=== PATIENT | male | born 1970 ===

== ENCOUNTER → 2020-01-16 12:48 | Outpatient (BNVA) | payer OTHER, SELFPAY | PROVIDERS: PCP Physician Assistant; Referring Provider Physician Assistant; Visit Provider Internal Medicine Cardiovascular Disease | DX: R07.2 Precordial pain (principal); I10 Essential (primary) hypertension; G47.30 Sleep apnea, unspecified | CPT/HCPCS: 93005; 99202 ==

== ENCOUNTER → 2020-01-22 08:51 | Outpatient (REF) | payer OTHER, SELFPAY ==
--- NOTE | 2020-01-22 08:54 | CA_ITS ---
Acquisition Time: 2020-01-22 09:16:22 Total Exercise Time: 00:09:26 Test Indications: Chest Pain Medications: Protocol: LUZMA Max HR: 162 BPM 93% of Pred: 173 BPM Max BP: 190/058 mmHG Max Work Load: 10.8 METS Exercise stress test using Luzma protocol, total of 9 min 26 sec. METS10.8, with MHR up to 162, and MAPHR up to 93%. Tolerated well, denies any anginal sx. EKG with isolated PVC and no ischemic changes noted during exercise or in recovery period. Mildly hypertensive response to exercise that normalizes in recovery. Test reviewed with Dr. Spence. Referred By: Orion Rutherford Overread By: Elvin Epstein
== END ==
LOC: HO.CARD 08:51
PROVIDERS: Visit Provider Internal Medicine Cardiovascular Disease
DX: R07.2 Precordial pain (principal)
CPT/HCPCS: 93017

== ENCOUNTER → 2020-03-11 20:20 | Outpatient (REF) | payer OTHER, SELFPAY | LOC: HO.SL 20:20 | PROVIDERS: PCP Physician Assistant; Visit Provider Internal Medicine Cardiovascular Disease | DX: G47.33 Obstructive sleep apnea (adult) (pediatric) (principal) | CPT/HCPCS: 95810 ==

== ENCOUNTER 2020-03-14 04:08 | Emergency (ER) | payer OTHER, SELFPAY ==
[2020-03-14 04:13] VITALS: BP 149/76; PULSE 77; RESP 16; TEMP 36.9; O2SAT 99; BMI 31.8
--- NOTE | 2020-03-14 04:28 | PC.NURSE ---
Covid and Strep swabs obtained and sent.
--- NOTE | 2020-03-14 04:36 | XR_ITS ---
EXAMINATION: XR CHEST CLINICAL INFORMATION: Cough COMPARISON: 04/18/2018 TECHNIQUE: Frontal view of the chest was obtained. FINDINGS: The lungs are clear with no focal consolidation. No evidence of pneumothorax or pulmonary edema. Possible trace right pleural effusion, versus pleural thickening. The cardiomediastinal silhouette is unremarkable. No acute osseous findings. XR/XR chest 1V IMPRESSION: Possible trace right pleural effusion, versus pleural thickening.
--- NOTE | 2020-03-14 04:46 | PC.NURSE ---
MD at bedside for primary eval. XRay at bedside.
[2020-03-14 04:50] LABS: COVID-19 Test Negative (Negative)
--- NOTE | 2020-03-14 05:09 | ED.URI ---
HPI - URI/Sore Throat General Chief Complaint: Upper Respiratory Symptoms Stated Complaint: FLU LIKE SYMPTOMS Time Seen by Provider: 03/14/20 05:09 Source: patient and juice tester Mode of arrival: ambulatory History of Present Illness HPI Narrative: This is a 49-year-old male with DUNCAN who presents after having undergone a sleep study on and then states that he developed dry, nonproductive, cough with runny nose but denies sore throat, ear pain, headache, body aches, GI symptoms. He otherwise denies any recent travel or history of asthma or tobacco smoking. In addition, he denies any fevers or chills. Related Data Previous Rx's Medication Instructions Recorded cyclobenzaprine 10 mg tablet 10 mg PO TID PRN 30 Days #90 tab 11/17/19 dicyclomine 20 mg tablet 20 mg PO BID 20 Days #40 tab 12/23/19 lisinopril 20 1 tab PO DAILY 30 Days #30 tab 12/23/19 mg-hydrochlorothiazide 12.5 mg tablet amlodipine 5 mg tablet 5 mg PO DAILY #30 tab 01/16/20 hydroxyzine HCl 25 mg tablet 25 mg PO BEDTIME #90 tab 01/16/20 ibuprofen 800 mg tablet 800 mg PO Q8H #90 tab 03/09/20 clonazepam 1 mg tablet 1 mg PO DAILY 30 Days #30 tab 03/11/20 Allergies Allergy/AdvReac Type Severity Reaction Status Date / Time No Known Allergies Allergy Verified 03/14/20 04:17 [No Known Allergies*] Review of Systems Review of Systems: Pertinent positives and negatives as stated in HPI and 10 point review of systems is otherwise negative. [facility] Past Medical History Source: nursing notes reviewed Medical History HTN (hypertension) Sleep apnea Surgical History History of colonoscopy Family History Family History Father Diabetes Mother Diabetes Family/Other Hypertension Social History Social History Alcohol intake: current Smoking Status: Never smoker Advance Directives: No Advance Directives Information Provided: No Physical Exam Vital Signs: Vital Signs: Last Vital Signs Temp 98.4 F 03/14/20 04:13 Pulse 77 03/14/20 04:13 Resp 16 03/14/20 04:13 BP 149/76 H 03/14/20 04:13 Pulse Ox 99 03/14/20 04:13 Body Mass Index 31.8 VITAL SIGNS: Reviewed. GENERAL: Well developed, well nourished, in no acute distress. HEAD: Normocephalic/atraumatic, EYES: PERRLA, EOMI EARS: Ext canals without abnormality, TMs non-bulging and non-erythematous NOSE: Nares patent bilateral OROPHARYNX: no oral lesions noted, posterior pharynx clear NECK: Supple, no adenopathy LUNGS: Normal breath sounds. No adventitious sounds or accessory muscle use. SpO2<99> CARDIOVASCULAR: Regular rate and rhythm without noted murmurs, no JVD or lower extremity edema. ABDOMEN: Obese, Soft, non-tender, non-distended with bowel sounds. NEUROLOGIC: Alert and oriented x 4. Course Course Course Narrative: This is a 49-year-old male with history and clinical presentation most consistent with allergies given the rhinitis and dry cough especially with a negative COVID-19 test and no further viral-like symptoms. Chest x-ray was not consistent with patchy opacities or an infiltrate. MDM - URI/Sore Throat Lab Data Labs: Lab Results 03/14/20 Range/Units 04:25 COVID-19 ([facility]) Negative (Negative) COVID-19 Clin Com See Note Discharge Plan Discharge Clinical Impression: Cough Rhinitis Qualifiers: Rhinitis type: other Qualified Code(s): J31.0 - Chronic rhinitis Patient Disposition: Home, Self-Care Instructions: Cold Symptoms (ED), Acute Cough (ED) Additional Instructions: Recomendamos el uso de Robitussin, Cepacol u otro supresor de la tos dedicado de venta isaiah para el control de los s?ntomas. Debe darse cuenta de que la tos seca puede durar entre 3 y 4 semanas. Recomiende probar Claritin diariamente felecia se indica en el empaque externo, en combinaci?n con Flonase (esto tambi?n est? disponible sin receta) para un alivio adicional de los s?ntomas. Guillermo un seguimiento con zamora proveedor de atenci?n primaria llamando a la oficina el para programar frank leann. No dude en volver al servicio de urgencias por cualquier empeoramiento kevin de bakari s?ntomas. Prescriptions: No Action cyclobenzaprine 10 mg tablet 10 mg PO TID PRN (Reason: muscle spasm) 30 Days Qty: 90 RF: 2 hydroxyzine HCl 25 mg tablet 25 mg PO BEDTIME Qty: 90 RF: 1 ibuprofen 800 mg tablet 800 mg PO Q8H Qty: 90 RF: 3 clonazepam 1 mg tablet 1 mg PO DAILY 30 Days Qty: 30 RF: 1 lisinopril-hydrochlorothiazide 20-12.5 mg tablet 1 tab PO DAILY 30 Days Qty: 30 RF: 2 dicyclomine 20 mg tablet 20 mg PO BID 20 Days Qty: 40 RF: 1 amlodipine 5 mg tablet 5 mg PO DAILY Qty: 30 RF: 3 Referrals: Rafael Ghotra PA-C [Primary Care Provider] - 2 days (Re-evaluation for dry cough, COVID-19 negative.) Print Language: Botswanan
[2020-03-14] MEDS: Benzonatate 100 MG CAPSULE PO (05:23)
== END 2020-03-14 05:27 | disposition home or self-care (01) ==
PROVIDERS: Emergency Provider Student in an Organized Health Care Education/Training Program; PCP Physician Assistant
DX: R05 Cough (principal); J31.0 Chronic rhinitis; Z20.822 Contact with and (suspected) exposure to COVID-19; I10 Essential (primary) hypertension; Z79.899 Other long term (current) drug therapy
CPT/HCPCS: 36415; 71045; 87071; 87635; 87880; 99283

== ENCOUNTER → 2020-04-20 13:50 | Outpatient (BNVA) | payer OTHER, SELFPAY | PROVIDERS: PCP Physician Assistant; Visit Provider Internal Medicine Cardiovascular Disease | DX: I10 Essential (primary) hypertension (principal); R07.2 Precordial pain | CPT/HCPCS: 99212 ==

== ENCOUNTER → 2020-11-04 10:24 | Outpatient (BNVA) | payer MEDICAID, SELFPAY | PROVIDERS: PCP Physician Assistant; Referring Provider Physician Assistant; Visit Provider Internal Medicine Cardiovascular Disease | DX: I10 Essential (primary) hypertension (principal) | CPT/HCPCS: 93005; 99212 ==

== ENCOUNTER 2020-11-17 07:44 | Outpatient (REF) | payer OTHER, SELFPAY ==
[2020-11-17 08:35] LABS: Hematocrit 43.6 % (42-52); Hemoglobin 14.3 g/dl (14.0-18.0); Mean Corpuscular HGB Conc 32.8 g/dl (31.0-36.0); Mean Corpuscular Hemoglobin 28.1 pg (27.0-33.0); Mean Corpuscular Volume 85.7 fL (80-98); Mean Platelet Volume 8.7 fL (9.4-12.4); Platelet Count 286 X10*3/uL (160-400); Red Blood Count 5.09 X10*6/uL (4.60-5.80); Red Cell Distribution Width 13.2 % (11.0-16.0); White Blood Count 8.9 X10*3/uL (4.8-10.8)
[2020-11-17 08:58] LABS: Alanine Aminotransferase 28 U/L (0-40); Albumin Level 4.4 g/dL (3.5-5.0); Alkaline Phosphatase 61 U/L (39-117); Anion Gap 12 (12-20); Aspartate Amino Transferase 18 U/L (5-37); Bilirubin Total 0.4 mg/dL (0.0-1.0); Blood Urea Nitrogen 10 mg/dL (9-16); Calcium 8.9 mg/dL (8.4-10.2); Carbon Dioxide 26 mmol/L (22-29); Chloride 103 mmol/L (96-108); Cholesterol 172 mg/dL; Estimated Glomerular Filt Rate > 60; Glucose Fasting 128 mg/dL (60-99); HDL Cholesterol 43 mg/dL; LDL Cholesterol Calculated 103 mg/dl; Potassium 4.3 mmol/L (3.3-5.1); Sodium 137 mmol/L (135-145); Total Protein 7.7 g/dL (6.5-8.0); Triglycerides 131 mg/dL
[2020-11-17 09:04] LABS: Estimated Average Glucose 128 mg/dL; Hemoglobin A1c % 6.1 %
[2020-11-17 09:36] LABS: Creatinine Urine 135.37 mg/dL; Microalbum/Creatinine Ratio Ur 7.3 ug/mg cr
== END 2020-11-17 07:45 | disposition home or self-care (01) ==
LOC: HO.LAB 07:44
PROVIDERS: PCP Physician Assistant; Visit Provider Physician Assistant
DX: I10 Essential (primary) hypertension (principal); E66.09 Other obesity due to excess calories; Z68.32 Body mass index [BMI] 32.0-32.9, adult
CPT/HCPCS: 36415; 80053; 80061; 82043; 83036; 84443; 85027

== ENCOUNTER → 2020-12-14 13:48 | Outpatient (BNVA) | payer OTHER, SELFPAY | PROVIDERS: PCP Physician Assistant; Visit Provider Internal Medicine Cardiovascular Disease | DX: R94.31 Abnormal electrocardiogram [ECG] [EKG] (principal); I10 Essential (primary) hypertension | CPT/HCPCS: 93005; 99212 ==

== ENCOUNTER → 2021-05-06 13:43 | Outpatient (BNVA) | payer OTHER, SELFPAY | PROVIDERS: PCP Physician Assistant; Referring Provider Physician Assistant; Visit Provider Internal Medicine Cardiovascular Disease | DX: I10 Essential (primary) hypertension (principal); R94.31 Abnormal electrocardiogram [ECG] [EKG]; Z79.899 Other long term (current) drug therapy | CPT/HCPCS: 99212 ==

== ENCOUNTER → 2021-06-11 07:21 | Outpatient (REF) | payer OTHER, SELFPAY ==
--- NOTE | 2021-06-11 07:25 | CA_ITS ---
Transthoracic Echocardiogram Patient (Last, First, Middle): Leandro Pozo, Gender: Male Date of : 1970 Age: 51 Procedure Date: 06/11/2021 Procedure Type: Transthoracic Echocardiogram Location: OP Height: 177.8 cm Weight: 107.5 kg BSA: 2.24 m2 Heart Rate: bpm BP: 132 / 72 mmHg Color Mixer: SB Referring MD: Orion Rutherford MD Symptoms: I10 - Essential (primary) hypertension Study Quality: Adequate ECG Rhythm: Sinus Conclusions: - Normal left ventricular size, thickness, systolic function, and wall motion. The visually estimated ejection fraction is between 60-65%. - Normal right ventricular cavity size and systolic function. Findings Left Ventricle Normal left ventricular size, thickness, systolic function, and wall motion. The visually estimated ejection fraction is between 60-65%. Diastolic function is normal for age. Normal global longitudinal strain. Right Ventricle Normal right ventricular cavity size and systolic function. Atria The left atrium is normal in size. Aortic Valve Normal aortic valve structure and function. There is no aortic valve stenosis. There is trace (trivial) aortic valve regurgitation. Mitral Valve Normal mitral valve structure and function. There is no mitral valve regurgitation. There is no mitral valve stenosis. Pulmonic Valve The pulmonic valve is likely normal. Tricuspid Valve Normal tricuspid valve structure and function. There is no tricuspid valve regurgitation. Tricuspid regurgitation envelope is inadequate for calculation of right ventricular systolic pressure. Indeterminate right atrial pressure. Great Vessels All visible segments of the aorta are normal in size. The visualized portions of the pulmonary artery and branches are normal. Venous The inferior vena cava was not well visualized. Pericardium/Pleural There is no evidence of pericardial effusion. Prior Study Comparison No prior study available for comparison. Measurements 2D Linear Measurements IVSd: 0.76 0.6-0.9/0.6-1.0 cm LVIDd: 5.64 3.9-5.3/4.2-5.9 cm LVIDd Index: 2.52 2.4-3.2/2.2-3.1 cm/m2 LVIDs: 3.60 2.0-3.6 cm LVPWd: 0.75 0.7-1.1 cm LA Diam: 3.90 2.7-3.8/3.0-4.0 cm LAIDs Index: 1.74 1.5-2.3 cm/m2 LV Mass: 193.72 67-162/88-224 g LV Mass Index: 86.48 43-95/49-115 g/m2 LVOT Diam: 2.10 3.0+(-)1.3 cm 2D Systolic Function EF 4C: 55.70 >55% EF 2C: 66.60 >55% EF BiP: 61.00 >55% Mitral Valve MV Pk E: 0.94 MV PK A: 0.48 MV Decel Time: 224.00 E/A: 1.90 E'Lateral: 6.85 E'Medial: 9.46 E/E' Med: 9.90 E/E' Lat: 13.70 PHT: 66.00 MVA PHT: 3.33 Decel Nobles: 4.18 Aortic Valve AoV Pk Ap: 1.64 AoV Mn Ap: 1.06 AoV VTI: 0.30 AoV Pk Grad: 11.00 Aov Mn Grad: 5.00 ALEA Cont.VTI: 3.03 LVOT LVOT Pk Ap: 1.53 LVOT Mn Ap: 0.96 LVOT VTI: 0.27 LVOT Pk Grad: 9.00 LVOT Mn Grad: 5.00 LVOT Diam: 2.10 LVOT Area: 3.46 Diastolic Function MV Pk E: 0.94 MV Pk A: 0.48 E/A: 1.90 E'Medial: 9.46 E/E' Med: 9.90 E' Laterial: 6.85 E/E' Lat: 13.70 Right Ventricle TAPSE (mm): 17.00 TVS' Ap: 11.90 Great Vessels Aorta Sinus of Valsalva: 3.26 2.0-3.[address] Ridge: 2.67 1.7-3.4 cm Ao Asc: 3.20 2.1-3.4 cm Pulmonary Veins Pulm Vein S/D 1.20 Pulmonary Valve PV Pk Ap: 1.12 Peak PV Grad: 5.00 Updated in Other Vendor System with Status of Final Orion Rutherford MD electronically signed on 06/14/2021 3:33:43 PM with status of Final
== END ==
LOC: HO.CARD 07:21
PROVIDERS: PCP Physician Assistant; Visit Provider Physician Assistant
DX: I10 Essential (primary) hypertension (principal)
CPT/HCPCS: 93306; 93356

== ENCOUNTER 2021-08-26 07:15 | Outpatient (REF) | payer OTHER, SELFPAY ==
[2021-08-26 08:23] LABS: Hematocrit 41.4 % (42.0-52.0); Hemoglobin 13.6 g/dl (14.0-18.0); Mean Corpuscular HGB Conc 32.9 g/dl (31.0-36.0); Mean Corpuscular Hemoglobin 27.9 pg (27.0-33.0); Platelet Count 321 X10*3/uL (160-400); Red Blood Count 4.87 X10*6/uL (4.60-5.80); Red Cell Distribution Width 12.9 % (11.0-16.0)
[2021-08-26 08:30] LABS: Estimated Average Glucose 146 mg/dL; Hemoglobin A1c % 6.7 %
[2021-08-26 08:55] LABS: Alanine Aminotransferase 24 U/L (0-40); Albumin Level 4.5 g/dL (3.5-5.0); Alkaline Phosphatase 81 U/L (39-117); Anion Gap 13 (12-20); Aspartate Amino Transferase 19 U/L (5-37); Bilirubin Total 0.5 mg/dL (0.0-1.0); Blood Urea Nitrogen 14 mg/dL (9-16); Calcium 8.8 mg/dL (8.4-10.2); Carbon Dioxide 26 mmol/L (22-29); Chloride 100 mmol/L (96-108); Cholesterol 178 mg/dL; Estimated Glomerular Filt Rate > 60; Glucose Fasting 124 mg/dL (60-99); HDL Cholesterol 44 mg/dL; LDL Cholesterol Calculated 102 mg/dl; Sodium 135 mmol/L (135-145); Total Protein 7.9 g/dL (6.5-8.0); Triglycerides 160 mg/dL
[2021-08-26 09:04] LABS: Prostate Specific Antigen Scr 0.47 ng/mL (<0.05-4.0)
[2021-08-26 09:57] LABS: Creatinine Urine 191.03 mg/dL; Microalbum/Creatinine Ratio Ur 3.1 ug/mg cr
== END 2021-08-26 07:16 | disposition home or self-care (01) ==
LOC: HO.LAB 07:15
PROVIDERS: PCP Physician Assistant; Visit Provider Physician Assistant
DX: Z12.5 Encounter for screening for malignant neoplasm of prostate (principal); E66.09 Other obesity due to excess calories; Z68.32 Body mass index [BMI] 32.0-32.9, adult; I10 Essential (primary) hypertension
CPT/HCPCS: 36415; 80053; 80061; 82043; 83036; 84153; 84443; 85027

== ENCOUNTER → 2021-09-08 13:50 | Outpatient (BNVA) | payer OTHER, SELFPAY | PROVIDERS: PCP Physician Assistant; Referring Provider Physician Assistant; Visit Provider Internal Medicine Cardiovascular Disease | DX: I10 Essential (primary) hypertension (principal); E78.5 Hyperlipidemia, unspecified; Z79.82 Long term (current) use of aspirin | CPT/HCPCS: 93005; 99212 ==

== ENCOUNTER 2021-09-27 15:23 | Outpatient (REF) | payer OTHER, SELFPAY ==
--- NOTE | ~2021-09-27 | XR_ITS ---
EXAMINATION: XR FOOT, LEFT CLINICAL INFORMATION: Pain COMPARISON: None TECHNIQUE: AP, lateral, and oblique views of the left foot. FINDINGS: Bone alignment is normal. No fracture or dislocation is seen. Joint spaces are normal. There are calcaneal spurs. Soft tissues are otherwise normal. XR/XR foot LT min 3V IMPRESSION: Calcaneal spurs.
== END 2021-09-27 15:24 | disposition home or self-care (01) ==
LOC: HO.XRAY 15:23
PROVIDERS: PCP Physician Assistant; Visit Provider Physician Assistant
DX: M79.672 Pain in left foot (principal)
CPT/HCPCS: 73630

== ENCOUNTER → 2022-02-28 15:25 | Outpatient (BNVA) | payer OTHER, SELFPAY | PROVIDERS: PCP Physician Assistant; Referring Provider Physician Assistant; Visit Provider Internal Medicine Cardiovascular Disease | DX: E78.2 Mixed hyperlipidemia (principal); I10 Essential (primary) hypertension | CPT/HCPCS: 99212 ==

== ENCOUNTER 2022-06-06 07:30 | Outpatient (REF) | payer OTHER, SELFPAY ==
[2022-06-06 08:03] LABS: Hematocrit 44.2 % (42.0-52.0); Hemoglobin 14.2 g/dl (14.0-18.0); Mean Corpuscular HGB Conc 32.1 g/dl (31.0-36.0); Mean Corpuscular Hemoglobin 28.5 pg (27.0-33.0); Mean Corpuscular Volume 88.8 fL (80.0-98.0); Platelet Count 281 X10*3/uL (160-400); Red Blood Count 4.98 X10*6/uL (4.60-5.80); Red Cell Distribution Width 12.7 % (11.0-16.0); White Blood Count 11.5 X10*3/uL (4.8-10.8)
[2022-06-06 08:43] LABS: Alanine Aminotransferase 25 U/L (0-40); Albumin Level 4.2 g/dL (3.5-5.0); Alkaline Phosphatase 71 U/L (39-117); Anion Gap 11 (12-20); Aspartate Amino Transferase 21 U/L (5-37); Bilirubin Total 0.3 mg/dL (0.0-1.0); Blood Urea Nitrogen 12 mg/dL (9-16); Carbon Dioxide 27 mmol/L (22-29); Chloride 106 mmol/L (96-108); Cholesterol 124 mg/dL; Estimated Glomerular Filt Rate > 60; Glucose Fasting 137 mg/dL (60-99); HDL Cholesterol 42 mg/dL; LDL Cholesterol Calculated 49 mg/dl; Potassium 4.1 mmol/L (3.3-5.1); Sodium 140 mmol/L (135-145); Total Protein 7.3 g/dL (6.5-8.0); Triglycerides 169 mg/dL
[2022-06-06 08:50] LABS: TSH reflex Free T4 0.85 uIU/mL (0.32-4.0)
== END 2022-06-06 07:31 | disposition home or self-care (01) ==
LOC: HO.LAB 07:30
PROVIDERS: PCP Physician Assistant; Visit Provider Physician Assistant
DX: E11.65 Type 2 diabetes mellitus with hyperglycemia (principal); E78.5 Hyperlipidemia, unspecified
CPT/HCPCS: 36415; 80053; 80061; 82043; 84443; 85027

== ENCOUNTER 2022-12-07 08:00 | Outpatient (AMB) | payer OTHER, SELFPAY ==
[2022-12-07 08:04] VITALS: BP 124/78; PULSE 64; O2SAT 98; BMI 32.1
--- NOTE | 2022-12-07 08:04 | MHC.PC.OV ---
Vital Signs 12/07/22 08:04 Height 5 ft 11 in Weight 230 lb BMI 32.1 BP 124/78 Blood Pressure Location Lt brachial Position Sitting Pulse 64 Pulse Source Pulse Oximeter Pulse Oximetry (%) 98 Oxygen Delivery Method Room Air Intake Visit Reasons: f/u DMII Allergies No Known Allergies [No Known Allergies*] Allergy (Verified 12/07/22 08:13) Medication List - Last Reconciled 12/07/22 by Rafael Ghotra PA-C amlodipine 5 mg PO DAILY 90 days atorvastatin 40 mg PO BEDTIME clonazepam 1 mg PO DAILY 30 days hydroxyzine HCl 25 mg PO BEDTIME ibuprofen 800 mg PO Q8H lisinopril-hydrochlorothiazide 20-12.5 mg 1 tab PO DAILY Tobacco use date assessed: 06/07/22 Dental Screening Dental Screen Date: 12/07/22 Did you have a dental visit in the last 12 months?: Yes Did you have a dental problem in the last 6 months where you did not have access to dental care?: No Was dental information given to patient?: Patient has dentist HPI f/u DMII HPI Details Patient is a 52-year-old male here today for a follow-up visit.? Patient has a past medical history significant for type 2 diabetes, hyperlipidemia, abnormal EKG reading. Concerns--> report over the last 3 weeks having URI -has been using [id number] cough cold medications. Continues with a mild cough. Otherwise no fevers .. Type 2 diabetes:? Has been able to manage his type 2 diabetes with lifestyle modifications,.? Today's A1c is 6.1. Has been able to lose a few lb since last office visit. .. Obesity: Has lost weight since last office visit. Continues to have BMI over 30. He reports he reduced to soda and bread in his diet. .. Hyperlipidemia:? Most recent lipid panel showing excellent control of his LDL and total cholesterol. Will continue statin therapy. Laboratory Tests 06/06/22 06/07/22 07:41 09:58 Hgb A1c (Clinic) 6.1 H Cholesterol 124 LDL Cholesterol, C alc 49 PFSH Medical History HTN (hypertension) Sleep apnea Surgical History History of colonoscopy Family History Father Diabetes Depression Colon cancer Mother Diabetes Depression Breast mass Family/Other Hypertension Social History Housing: Apartment Alcohol intake: current Alcohol intake frequency: holidays/special occasions only Alcohol type: beer Patient Tobacco Use Status: Never used Tobacco e-Cigarette/Vaping Use: Never Used Second Hand Smoke Exposure: No service: No Current occupational status: employed 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 1. Little interest or pleasure in doing things: not at all 2. Feeling down, depressed, or hopeless: not at all 3. Trouble falling or staying asleep, or sleeping too much: not at all 4. Feeling tired or having little energy: not at all 5. Poor appetite or overeating: not at all 6. Feeling bad about yourself - or that you are a failure or have let yourself or your family down: not at all 7. Trouble concentrating on things, such as reading the newspaper or watching television: not at all 8. Moving or speaking so slowly that other people could have noticed. Or the opposite - being so fidgety or restless that you have been moving around a lot more than usual: not at all 9. Thoughts that you would be better off or of hurting yourself in some way: not at all Total score: 0 Depression Screening Interpretation: Negative Depression Screening Done: Yes 94207 - PHQ-9 Billing: Yes Source: Developed by Drs. En Hayden, Elizabeth Smalls, Narendra Gaytan and colleagues, with an educational jax from [employer]. Thrive Questionnaire Date Thrive assessed: 06/07/22 AUDIT C Alcohol Use Questionnaire (AUDIT-C) 1. How often do you have a drink containing alcohol?: Monthly or less 2. How many drinks containing alcohol do you have on a typical day when you are drinking?: 1 or 2 Total Score: 1 ELIZA-7 AMB Questionnaire ELIZA-7 Date ELIZA - 7 assessed: 06/07/22 Source: Developed by Drs. En Hayden, Elizabeth Smalls, Narendra Gaytan and colleagues, with an educational jax from [employer]. Review of Systems Const Denies headache(s) Eyes Denies loss of vision ENT Denies vertigo, Denies dizziness, Denies headache(s) and Denies sore throat Card Denies chest pain, Denies leg edema and Denies lightheadedness Resp Denies cough, Denies hemoptysis and Denies wheezing GI Denies abdominal pain, Denies melena, Denies constipation, Denies diarrhea and Denies vomiting Denies dysuria, Denies urinary frequency and Denies urinary urgency Musc Denies arthralgias, Denies joint swelling, Denies numbness and Denies tingling Neuro Denies Abnormal speech present, Denies behavioral changes, Denies vertigo, Denies dizziness, Denies headache(s), Denies loss of vision, Denies memory loss, Denies numbness and Denies tingling Psych Denies anxiety, Denies behavioral changes, Denies depression, Denies memory loss and Denies panic attacks Bipin/Lymph Denies easy bleeding and Denies easy bruising Aller/Immun Denies wheezing Physical exam (Primary Care) Vital Signs: Last Vital Signs Pulse 64 12/07/22 08:04 BP 124/78 12/07/22 08:04 Pulse Ox 98 12/07/22 08:04 Oxygen Delivery Method Room Air 12/07/22 08:04 BMI result Body Mass Index 32.1 Tobacco/Smoking Status: Tobacco use Status Tobacco use date assessed 06/07/22 12/07/22 08:04 Patient Tobacco Use Status Never used Tobacco 12/07/22 08:04 e-Cigarette/Vaping Use Never Used 12/07/22 08:04 PHQ-9: PHQ-9 Score PHQ-9: Total score 0 12/07/22 08:17 Depression Screening Interpretation: Negative Thrive Assessment: Date of Thrive Assessment Date Thrive assessed 06/07/22 12/07/22 08:04 Const General: healthy appearing, no acute distress, alert and awake Nutritional Appearance: well nourished Orientation/consciousness: oriented to person, oriented to place and oriented to time HENMT Ears: TM's normal bilaterally General nose exam: Normal nasal mucous membranes and turbinates present Eyes Conjunctivae: conjunctivae normal Sclerae: sclerae normal Pupils: Equal, round and reactive pupils present Neck Neck: Yes no lymphadenopathy and Yes no JVD Thyroid: Thyroid normal Carotids: no bruits Resp Effort & Inspection: normal respiratory effort and not tachypneic Auscultation: no crackles, no rales, no rhonchi and no wheezes Cardio Rate: regular rate Rhythm: regular rhythm Heart sounds: no murmurs and normal S1 and S2 GI Palpation (GI): Soft to palpation, nontender, no hepatomegaly and no splenomegaly Auscultation: normal bowel sounds Skin General skin exam: no rashes or lesions noted and dry skin Neuro General: oriented to person, oriented to place and oriented to time Cranial nerves: Yes Equal, round and reactive pupils present Speech: No Abnormal speech present Gait exam (Neuro): Normal gait present Motor exam (neuro): no tremor noted Extrem Right upper extremity: full ROM Left upper extremity: full ROM Elbow/forearm/wrist images: 1. RAISED HYPERPIGMENTED ROUGH TEXTURED SKIN LESION Right lower extremity: full ROM; no edema Left lower extremity: full ROM; no edema Psych Mental Status: mental status grossly normal Speech and movement: Normal speech and movement present Affect: normal affect Attitude: cooperative Thought process: Normal thought process present Results AMB Hemoglobin A1c AMB Hemoglobin A1c 6.1 % Last Edit by Suyapa mAato CMA on 12/07/22 08:28 Assessment and Plan Assessment & Plan (1) DMII (diabetes mellitus, type 2): Code(s): E11.9 - Type 2 diabetes mellitus without complications Qualifiers: Diabetes mellitus terminal system operator insulin use: without terminal system operator use Diabetes mellitus complication status: with hyperglycemia Qualified Code(s): E11.65 - Type 2 diabetes mellitus with hyperglycemia Plan: Type 2 diabetes well controlled with lifestyle modifications. Has been reducing his carbohydrates in his diet. Today's A1c is 6.1. Will continue lifestyle modifications to control his type 2 diabetes. He would like to see a new truck trailer final inspector for diabetic eye exam. (2) ELIZA (generalized anxiety disorder): Code(s): F41.1 - Generalized anxiety disorder Plan: Patient reports his anxiety is fairly well controlled though does have a fear of heights which causes him increased anxiety. Does use clonazepam 3-4 times per week with good effect. (3) Obese: Code(s): E66.9 - Obesity, unspecified Qualifiers: Obesity type: due to excess calories Obesity classification: adult class 1 (BMI 30 - 34.9) Serious obesity comorbidity presence: without serious comorbidity Body mass index: BMI 32.0-32.9 Qualified Code(s): E66.09 - Other obesity due to excess calories; Z68.32 - Body mass index [BMI] 32.0-32.9, adult Plan: Patient does understand his BMI is over 30 will continue working on lifestyle modifications to reach juice is weight. (4) Skin lesion of right arm: Code(s): L98.9 - Disorder of the skin and subcutaneous tissue, unspecified Plan: Reports his rough textured raised skin lesion over the posterior aspect of the right wrist. He reports the lesion is very itchy. Will supply patient with steroid ointment to use on the lesion. He would like to see a welder journeyman for evaluation of possible biopsy. (5) Hyperlipidemia: Code(s): E78.5 - Hyperlipidemia, unspecified Qualifiers: Hyperlipidemia type: mixed hyperlipidemia Qualified Code(s): E78.2 - Mixed hyperlipidemia Plan: Patient continues on statin therapy without any side effect. Most recent lipid panel showing appropriate LDL and total cholesterol. Goal LDL to remain below 130. (6) Bronchitis: Code(s): J40 - Bronchitis, not specified as acute or chronic Plan: Reports having a mild cough over the last 3 weeks. He is interested in getting chest x-ray. Will supply patient with cough suppressant tablets. (7) Leukocytosis: Code(s): D72.829 - Elevated white blood cell count, unspecified Qualifiers: Leukocytosis type: unspecified Qualified Code(s): D72.829 - Elevated white blood cell count, unspecified Plan: Have noted leukocytosis on most recent CBCs. Likely stress related though will repeat CBC and if elevated will consider hematology evaluation. Orders: Orders AMB Hemoglobin A1c Today Z13.9 - Encounter for screening, unspecified XR chest 2V Today J40 - Bronchitis, not specified as acute or chronic Referrals Dermatology Referral L98.9 - Disorder of the skin and subcutaneous tissue, unspecified Medications: New benzonatate 200 mg PO BID 7 days 14 caps 0RF J40 - Bronchitis, not specified as acute or chronic triamcinolone acetonide 0.1% 1 appl topical DAILY 15 days 30 grams 1RF L98.9 - Disorder of the skin and subcutaneous tissue, unspecified Changed From ibuprofen 800 mg PO Q8H 90 tabs 2RF M54.5 - Low back pain To ibuprofen 800 mg PO Q12H 30 days 60 tabs 2RF M54.5 - Low back pain Discontinued amlodipine Discontinued Reason: Doctor's Order 5 mg PO DAILY 90 days 90 tabs 3RF I10 - Essential (primary) hypertension Coding Level of Care Code Est Pt Level 4 (25678) Diagnoses Type 2 diabetes mellitus with hyperglycemia, without long-term current use of insulin E11.65 Diabetes mellitus terminal system operator insulin use: without terminal system operator use Diabetes mellitus complication status: with hyperglycemia ELIZA (generalized anxiety disorder) F41.1 Class 1 obesity due to excess calories without serious comorbidity with body mass index (BMI) of 32.0 to 32.9 in adult E66.09; Z68.32 Obesity type: due to excess calories Obesity classification: adult class 1 (BMI 30 - 34.9) Serious obesity comorbidity presence: without serious comorbidity Body mass index: BMI 32.0-32.9 Skin lesion of right arm L98.9 Mixed hyperlipidemia E78.2 Hyperlipidemia type: mixed hyperlipidemia Bronchitis J40 Leukocytosis, unspecified type D72.829 Leukocytosis type: unspecified
== END 2022-12-07 08:33 | disposition home or self-care (01) ==
PROVIDERS: Visit Provider Physician Assistant
DX: E11.65 Type 2 diabetes mellitus with hyperglycemia (principal); I10 Essential (primary) hypertension; E66.09 Other obesity due to excess calories; Z68.32 Body mass index [BMI] 32.0-32.9, adult; L98.9 Disorder of the skin and subcutaneous tissue, unspecified; E78.2 Mixed hyperlipidemia; J40 Bronchitis, not specified as acute or chronic; D72.829 Elevated white blood cell count, unspecified
CPT/HCPCS: 83036; 99214

== ENCOUNTER 2022-12-09 07:29 | Outpatient (REF) | payer OTHER, SELFPAY ==
--- NOTE | ~2022-12-09 | XR_ITS ---
EXAMINATION: XR CHEST CLINICAL INFORMATION: Bronchitis, not otherwise specified of acute or chronic COMPARISON: 03/14/2020, 04/18/2018. TECHNIQUE: 2 views of the chest were obtained. FINDINGS: There is no gross pneumothorax. Heart size is normal. Increased mild right costophrenic angle blunting may represent a small right pleural effusion. No focal consolidation to suggest pneumonia. XR/XR chest 2V IMPRESSION: Small right pleural effusion.
[2022-12-09 08:16] LABS: Hematocrit 44.9 % (42.0-52.0); Hemoglobin 14.5 g/dl (14.0-18.0); Mean Corpuscular HGB Conc 32.3 g/dl (31.0-36.0); Mean Corpuscular Hemoglobin 28.1 pg (27.0-33.0); Platelet Count 273 X10*3/uL (160-400); Red Blood Count 5.16 X10*6/uL (4.60-5.80); White Blood Count 9.6 X10*3/uL (4.8-10.8)
[2022-12-09 08:53] LABS: Alanine Aminotransferase 22 U/L (0-40); Albumin Level 4.3 g/dL (3.5-5.0); Alkaline Phosphatase 63 U/L (39-117); Anion Gap 12 (12-20); Aspartate Amino Transferase 15 U/L (5-37); Bilirubin Total 0.4 mg/dL (0.0-1.0); Blood Urea Nitrogen 13 mg/dL (9-16); Calcium 9.7 mg/dL (8.4-10.2); Carbon Dioxide 27 mmol/L (22-29); Chloride 102 mmol/L (96-108); Cholesterol 178 mg/dL (<200); Estimated Glomerular Filt Rate > 60; Glucose Fasting 133 mg/dL (60-99); HDL Cholesterol 48 mg/dL (>40); LDL Cholesterol Calculated 108 mg/dL (<100); Potassium 4.4 mmol/L (3.3-5.1); Sodium 137 mmol/L (135-145); Triglycerides 110 mg/dL (<150)
[2022-12-09 09:08] LABS: Prostate Specific Antigen Scr 0.64 ng/mL (<0.05-4.0)
== END 2022-12-09 07:30 | disposition home or self-care (01) ==
LOC: HO.LAB 07:29
PROVIDERS: PCP Physician Assistant; Visit Provider Physician Assistant
DX: J40 Bronchitis, not specified as acute or chronic (principal); E11.65 Type 2 diabetes mellitus with hyperglycemia; Z12.5 Encounter for screening for malignant neoplasm of prostate
CPT/HCPCS: 36415; 71046; 80053; 80061; 84153; 85027

== ENCOUNTER 2023-03-01 14:37 | Outpatient (AMB) | payer OTHER, SELFPAY ==
[2023-03-01 15:02] VITALS: BP 120/70; PULSE 69; BMI 31.5
--- NOTE | 2023-03-01 15:02 | MHC.OFFVIS ---
Intake Vital Signs 03/01/23 15:02 Height 5 ft 11 in Weight 226 lb 3.108 oz BMI 31.5 BP 120/70 Blood Pressure Location Lt brachial Position Sitting Pulse 69 Intake Visit Reasons: 1 yr f/up Intake Note: 1 yr f/up pt its feeling fine Medical Aides Teacher Required: Yes Medical Aides Teacher Name: Roberta [id number]/tam Accompanied by: Self / Same As Patient Allergies No Known Allergies [No Known Allergies*] Allergy (Verified 12/07/22 08:13) Medication List - Last Reconciled 03/01/23 by Orion Rutherford MD clonazepam 1 mg PO DAILY 30 days hydroxyzine HCl 25 mg PO BEDTIME 90 days ibuprofen 800 mg PO Q12H 30 days lisinopril-hydrochlorothiazide 20-12.5 mg 1 tab PO DAILY triamcinolone acetonide 0.1% 1 appl topical DAILY 15 days HPI HPI Comments History of Present Illness Details 52-year-old gentleman here for follow-up. He was seen previously for burning chest discomfort at rest and with exertion. He underwent exercise stress test which was normal. He has background of hypertension. Blood pressure control is good. His EKG on previous visit showed inferior Q-waves and he underwent echocardiography. Echocardiography showed no regional wall motion abnormalities. He has been doing well and has no exertional symptoms. He is starting to become more active and plans to play basketball with his son. Blood pressure control is good. He is compliant with medications. He is cutting back on sugars in his diet because he has been diagnosed with diabetes and his hemoglobin A1c was 6.7 recently. His triglycerides were 160, cholesterol 178, LDL 102 an HDL 44. Given diagnosis of diabetes I think he should be started on statin He is back for follow-up. He is doing well. No chest pain or shortness of breath. Tolerating statin therapy well. 03/01/2023: He returns for follow-up. He has been doing well. Blood pressure is well controlled. He is not taking statins anymore. He is saying he has not diabetic and he was told that he does not need statins. He has a little upset that diabetes is still a diagnosis in his chart and wanted the diagnosis to be removed from his records. 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 Cognitive needs: No Hearing needs: No Vision needs: No Review of Systems Const Reports chills, Reports fatigue, Reports fever(s), Reports frequent falls, Reports weakness, Reports weight gain and Reports weight loss ENT Reports dizziness Card Reports chest pain, Reports leg edema, Reports lightheadedness, Reports palpitations, Reports dyspnea and Reports dyspnea on exertion Resp Reports cough, Reports dyspnea and Reports dyspnea on exertion GI Reports hematochezia Musc Reports abnormal gait, Reports muscle weakness, Reports numbness, Reports radiating pain into limb and Reports tingling Neuro Reports abnormal gait, Reports dizziness, Reports frequent falls, Reports numbness, Reports tingling and Reports weakness Endo Reports fatigue and Reports palpitations Physical Exam Vital Signs: Last Vital Signs Pulse 69 03/01/23 15:02 BP 120/70 03/01/23 15:02 BMI result Body Mass Index 31.5 GENERAL APPEARANCE: in no acute distress, pleasant. NECK: no carotid bruit, no jugular venous distention. SKIN: no suspicious lesions, warm and dry. HEART: no murmurs, regular rate and rhythm. LUNGS: clear to auscultation bilaterally. ABDOMEN: soft, nontender. EXTREMITIES: no edema. PERIPHERAL PULSES: equal. NEUROLOGIC: No gross deficits, AAO X 3 Office Procedures EKG Details: Sinus rhythm 69 beats per minute, normal axis, normal ECG, QTC 420 milliseconds. [id number], Complete Assessment & Plan Assessment & Plan (1) HTN (hypertension): Comment: Stable Code(s): I10 - Essential (primary) hypertension Qualifiers: Hypertension type: essential hypertension Qualified Code(s): I10 - Essential (primary) hypertension (2) Hyperlipidemia: Code(s): E78.5 - Hyperlipidemia, unspecified Qualifiers: Hyperlipidemia type: mixed hyperlipidemia Qualified Code(s): E78.2 - Mixed hyperlipidemia Plan Pleasant 52-year-old gentleman who is here for follow-up. He has background history of hypertension and hyperlipidemia. His blood pressure is well controlled on lisinopril hydrochlorothiazide combination. His LDL cholesterol previously was 49 while he was taking atorvastatin. He is saying he has stopped using atorvastatin because he has not a diabetic anymore and he was told that he does not need the medication. His last LDL was 108 in November 2022. He wants to recheck the lipid panel. We will arrange a fasting lipid panel for him. Thank you for allowing me to participate in the care of your patient. Please feel free to contact me if you have any questions. Orders: Orders Lipid Panel Today E78.2 - Mixed hyperlipidemia Coding Level of Care Code Est Pt Level 4 (99414) Diagnoses Essential hypertension I10 Hypertension type: essential hypertension Mixed hyperlipidemia E78.2 Hyperlipidemia type: mixed hyperlipidemia CPT Codes EKG - CPT: 04159-[id number], Complete ([id number])
== END 2023-03-01 15:39 | disposition home or self-care (01) ==
PROVIDERS: PCP Physician Assistant; Visit Provider Internal Medicine Cardiovascular Disease
DX: I10 Essential (primary) hypertension (principal); E78.2 Mixed hyperlipidemia
CPT/HCPCS: 93010; 99214

== ENCOUNTER → 2023-03-01 14:37 | Outpatient (BNVA) | payer OTHER, SELFPAY | PROVIDERS: PCP Physician Assistant; Visit Provider Internal Medicine Cardiovascular Disease | DX: I10 Essential (primary) hypertension (principal); E78.2 Mixed hyperlipidemia; Z79.899 Other long term (current) drug therapy | CPT/HCPCS: 93005; 99212 ==

== ENCOUNTER 2023-04-11 09:19 | Outpatient (AMB) | payer OTHER, SELFPAY ==
[2023-04-11 09:45] VITALS: BP 116/70; PULSE 70; O2SAT 97; BMI 31.3
--- NOTE | 2023-04-11 09:45 | A.OFFPC_ITS ---
Vital Signs 3 04/11/23 09:45 Height 5 ft 11 in Weight 224 lb 8 oz BMI 31.3 BP 116/70 Blood Pressure Location Lt brachial Position Sitting Pulse 70 Pulse Source Pulse Oximeter Pulse Oximetry (%) 97 Oxygen Delivery Method Room Air Intake Visit Reasons: f/u DMII / HLD Chief Operator Hydroformer Required: No Accompanied by: Self / Same As Patient Allergies No Known Allergies [No Known Allergies*] Allergy (Verified 04/11/23 10:04) Medication List - Last Reconciled 04/11/23 by Rafael Ghotra PA-C bisacodyl (Laxative (bisacodyl)) 10 mg PO BID clonazepam 1 mg PO DAILY 30 days hydroxyzine HCl 25 mg PO BEDTIME 90 days ibuprofen 800 mg PO Q12H 30 days lisinopril-hydrochlorothiazide 20-12.5 mg 1 tab PO DAILY polyethylene glycol 3350 (Gavilax) grams PO triamcinolone acetonide 0.1% 1 appl topical DAILY 15 days Tobacco use date assessed: 04/11/23 Dental Screening Dental Screen Date: 04/11/23 Did you have a dental visit in the last 12 months?: No Did you have a dental problem in the last 6 months where you did not have access to dental care?: No Was dental information given to patient?: Patient has dentist HPI f/u DMII / HLD 2 HPI0 Details Patient is a 53-year-old male here today for a follow-up visit.? Patient has a past medical history significant for type 2 diabetes, hyperlipidemia, abnormal EKG reading. Concerns--> has a skin lesion over left side of his cheek he would like removed. He would like referral to Dermatology. .. Type 2 diabetes:? Has been able to manage his type 2 diabetes with lifestyle modifications,.? Today's A1c is 6.4 from 6.1. Has been able to lose a few lb since last office visit PLAN: Will add on 500 mg metformin to take once daily. .. Obesity: Has lost weight since last office visit. Continues to have BMI over 30. He reports he reduced to soda and bread in his diet. .. Hyperlipidemia:? Most recent lipid panel showing excellent control of his LDL and total cholesterol. Will continue statin therapy. Laboratory Tests 12/07/22 04/11/23 08:05 09:38 Hgb A1c (Clinic) 6.1 H 6.4 H [facility] Medical History HTN (hypertension) Sleep apnea Surgical History History of colonoscopy Family History Father Diabetes Depression Colon cancer Mother Diabetes Depression Breast mass Family/Other Hypertension Social History Housing: Apartment Alcohol intake: current Alcohol intake frequency: holidays/special occasions only Alcohol type: beer Patient Tobacco Use Status: Never used Tobacco e-Cigarette/Vaping Use: Never Used Second Hand Smoke Exposure: No service: No Current occupational status: employed 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 1. Little interest or pleasure in doing things: not at all 2. Feeling down, depressed, or hopeless: not at all 3. Trouble falling or staying asleep, or sleeping too much: not at all 4. Feeling tired or having little energy: not at all 5. Poor appetite or overeating: not at all 6. Feeling bad about yourself - or that you are a failure or have let yourself or your family down: not at all 7. Trouble concentrating on things, such as reading the newspaper or watching television: not at all 8. Moving or speaking so slowly that other people could have noticed. Or the opposite - being so fidgety or restless that you have been moving around a lot more than usual: not at all 9. Thoughts that you would be better off or of hurting yourself in some way: not at all Total score: 0 Depression Screening Interpretation: Negative Depression Screening Done: Yes 77790 - PHQ-9 Billing: Yes Source: Developed by Drs. En Hayden, Elizabeth Smalls, Narendra Gaytan and colleagues, with an educational jax from [employer]. Thrive Questionnaire Date Thrive assessed: 04/11/23 I am a: Patient What is your living situation today?: I have a steady place to live Within the past 12 months, did the food you bought not last and you didn't have the money to get more?: Never true Within the past 12 months, did you worry whether your food would run out before you got money to buy more?: Never true Do you have trouble paying for medicines?: No Do you have trouble getting transportation to medical appointments?: No Do you have trouble paying your heating and electricity bill?: No Do you have trouble taking care of your child, family member or friend?: No Do you have trouble with day-to-day activities such as bathing, preparing meals, shopping, managing finances, etc.?: No Are you currently unemployed and looking for a job?: No Are you interested in more education?: No Please select the resources that you would like help with: None Currently or been in a relationship where the following occur: no concerns reported THRIVE Score: 0 AUDIT C Alcohol Use Questionnaire (AUDIT-C) 1. How often do you have a drink containing alcohol?: Monthly or less 2. How many drinks containing alcohol do you have on a typical day when you are drinking?: 1 or 2 Total Score: 1 ELIZA-7 AMB Questionnaire ELIZA-7 Date ELIZA - 7 assessed: 04/11/23 Feeling nervous, anxious, or on edge: 0 = Not at all Not being able to stop or control worryin = Not at all Worrying too much about different things: 0 = Not at all Trouble relaxin = Not at all Being so restless that it is hard to sit still: 0 = Not at all Becoming easily annoyed or irritable: 0 = Not at all Feeling afraid as if something awful might happen: 0 = Not at all Total ELIZA-7 score (0-4 normal; 5-9 mild; 10-14 moderate; 15-21 severe): 0 Source: Developed by Drs. En Hayden, Elizabeth Smalls, Narendra Gaytan and colleagues, with an educational jax from [employer]. ELIZA-7 Assessment Billing ELIZA-7 Assessment Tool: ELIZA-7 Assessment 71094 Review of Systems Const Denies headache(s) Eyes Denies loss of vision ENT Denies vertigo, Denies dizziness, Denies headache(s) and Denies sore throat Card Denies chest pain, Denies leg edema and Denies lightheadedness Resp Denies cough, Denies hemoptysis and Denies wheezing GI Denies abdominal pain, Denies melena, Denies constipation, Denies diarrhea and Denies vomiting Denies dysuria, Denies urinary frequency and Denies urinary urgency Musc Denies arthralgias, Denies joint swelling, Denies numbness and Denies tingling Neuro Denies Abnormal speech present, Denies behavioral changes, Denies vertigo, Denies dizziness, Denies headache(s), Denies loss of vision, Denies memory loss, Denies numbness and Denies tingling Psych Denies anxiety, Denies behavioral changes, Denies depression, Denies memory loss and Denies panic attacks Bipin/Lymph Denies easy bleeding and Denies easy bruising Aller/Immun Denies wheezing Physical exam (Primary Care) Vital Signs: Last Vital Signs Pulse 70 04/11/23 09:45 BP 116/70 04/11/23 09:45 Pulse Ox 97 04/11/23 09:45 Oxygen Delivery Method Room Air 04/11/23 09:45 BMI result Body Mass Index 31.3 BMI Assessment/Plan discussion: High Tobacco/Smoking Status: Tobacco use Status Tobacco use date assessed 04/11/23 04/11/23 09:47 Patient Tobacco Use Status Never used Tobacco 04/11/23 09:47 e-Cigarette/Vaping Use Never Used 04/11/23 09:47 PHQ-9: PHQ-9 Score PHQ-9: Total score 0 04/11/23 09:58 Depression Screening Interpretation: Negative Thrive Assessment: Date of Thrive Assessment Date Thrive assessed 04/11/23 04/11/23 09:47 Currently or been in a relationship where the following occur: no concerns reported Const Other: OBESE General: healthy appearing, no acute distress, alert and awake Nutritional Appearance: well nourished Orientation/consciousness: oriented to person, oriented to place and oriented to time [facility] Head images: 2 1. HYPERPIGMENTED RAIS CIRCULAR STUCK ON APPEARANCE SKIN LESION Ears: TM's normal bilaterally General nose exam: Normal nasal mucous membranes and turbinates present Eyes Conjunctivae: conjunctivae normal Sclerae: sclerae normal Pupils: Equal, round and reactive pupils present Neck Neck: Yes no lymphadenopathy and Yes no JVD Thyroid: Thyroid normal Carotids: no bruits Resp Effort & Inspection: normal respiratory effort and not tachypneic Auscultation: no crackles, no rales, no rhonchi and no wheezes Cardio Rate: regular rate Rhythm: regular rhythm Heart sounds: no murmurs and normal S1 and S2 GI Palpation (GI): Soft to palpation, nontender, no hepatomegaly and no splenomegaly Auscultation: normal bowel sounds Skin General skin exam: no rashes or lesions noted and dry skin Neuro General: oriented to person, oriented to place and oriented to time Cranial nerves: Yes Equal, round and reactive pupils present Speech: No Abnormal speech present Gait exam (Neuro): Normal gait present Motor exam (neuro): no tremor noted Extrem Right upper extremity: full ROM Left upper extremity: full ROM Right lower extremity: full ROM; no edema Left lower extremity: full ROM; no edema Psych Mental Status: mental status grossly normal Speech and movement: Normal speech and movement present Affect: normal affect Attitude: cooperative Thought process: Normal thought process present Results AMB Hemoglobin A1c 2 AMB Hemoglobin A1c 6.4 % Last Edit by PRABHU Grimaldo on 04/11/23 09:59 Results Reviewed Results Reviewed: Laboratory Last Values Hgb A1c (Clinic) 6.4 % (4.0-6.0) H 04/11/23 09:38 Assessment and Plan Assessment & Plan (1) ELIZA (generalized anxiety disorder): Code(s): F41.1 - Generalized anxiety disorder Plan: Patient reports his anxiety is fairly well controlled though does have a fear of heights which causes him increased anxiety. Does use clonazepam 3-4 times per week with good effect. (2) DMII (diabetes mellitus, type 2): Code(s): E11.9 - Type 2 diabetes mellitus without complications Qualifiers: Diabetes mellitus in tube conversion technician insulin use: without shelter use Diabetes mellitus complication status: with hyperglycemia Qualified Code(s): E11.65 - Type 2 diabetes mellitus with hyperglycemia Plan: Type 2 diabetes well controlled with lifestyle modifications. Has been reducing his carbohydrates in his diet. Today's A1c is 6.4. Will continue lifestyle modifications to control his type 2 diabetes. Will add on metformin 500 daily. (3) Obese: Code(s): E66.9 - Obesity, unspecified Qualifiers: Obesity type: due to excess calories Obesity classification: adult class 1 (BMI 30 - 34.9) Serious obesity comorbidity presence: without serious comorbidity Body mass index: BMI 32.0-32.9 Qualified Code(s): E66.09 - Other obesity due to excess calories; Z68.32 - Body mass index [BMI] 32.0-32.9, adult Plan: Patient does understand his BMI is over 30 will continue working on lifestyle modifications to reach juice is weight. (4) Hyperlipidemia: Code(s): E78.5 - Hyperlipidemia, unspecified Qualifiers: Hyperlipidemia type: mixed hyperlipidemia Qualified Code(s): E78.2 - Mixed hyperlipidemia Plan: Patient continues on statin therapy without any side effect. Most recent lipid panel showing appropriate LDL and total cholesterol. Goal LDL to remain below 130. (5) Actinic keratitis: Code(s): H16.139 - Photokeratitis, unspecified eye Qualifiers: Laterality: left Qualified Code(s): H16.132 - Photokeratitis, left eye Plan: Has what appears to be an actinic keratosis over left facial cheek. He is interested in seeing a traffic rate analyst for Orders: Orders 2 AMB Hemoglobin A1c Today E11.9 - Type 2 diabetes mellitus without complications Microalbumin, Random (w Creat) Today I10 - Essential (primary) hypertension Comprehensive [place]. Panel Fast Today I10 - Essential (primary) hypertension Hemoglobin A1c Today E11.65 - Type 2 diabetes mellitus with hyperglycemia Lipid Panel Today E78.2 - Mixed hyperlipidemia Referrals 2 Dermatology Referral H16.132 - Photokeratitis, left eye Medications: New 2 metformin 500 mg PO DAILY 30 days 30 tabs 3RF E11.65 - Type 2 diabetes mellitus with hyperglycemia Coding Level of Care Code Est Pt Level 4 (77703) Diagnoses ELIZA (generalized anxiety disorder) F41.1 Type 2 diabetes mellitus with hyperglycemia, without long-term current use of insulin E11.65 Diabetes mellitus in tube conversion technician insulin use: without in tube conversion technician use Diabetes mellitus complication status: with hyperglycemia Class 1 obesity due to excess calories without serious comorbidity with body mass index (BMI) of 32.0 to 32.9 in adult E66.09; Z68.32 Obesity type: due to excess calories Obesity classification: adult class 1 (BMI 30 - 34.9) Serious obesity comorbidity presence: without serious comorbidity Body mass index: BMI 32.0-32.9 Mixed hyperlipidemia E78.2 Hyperlipidemia type: mixed hyperlipidemia Actinic keratitis of left eye H16.132 Laterality: left Additional Codes ELIZA-7 Assessment Billing - ELIZA-7 Assessment Tool: ELIZA-7 Assessment [id number] ([id number])
== END 2023-04-11 10:19 | disposition home or self-care (01) ==
PROVIDERS: PCP Physician Assistant; Visit Provider Physician Assistant
DX: E11.65 Type 2 diabetes mellitus with hyperglycemia (principal); E11.69 Type 2 diabetes mellitus with other specified complication; E66.09 Other obesity due to excess calories; Z68.32 Body mass index [BMI] 32.0-32.9, adult; F41.1 Generalized anxiety disorder; E78.2 Mixed hyperlipidemia; H16.132 Photokeratitis, left eye
CPT/HCPCS: 83036; 99214

== ENCOUNTER 2023-04-14 08:46 | Outpatient (REF) | payer OTHER, SELFPAY ==
--- NOTE | ~2023-04-14 | US_ITS ---
EXAMINATION: US ABDOMEN COMPLETE CLINICAL INFORMATION: Right upper quadrant pain. COMPARISON: Renal ultrasound 05/09/2018 and 10/20/2017. CT abdomen and pelvis 08/18/2016. TECHNIQUE: Real-time imaging of the abdominal viscera. Limited visualization due to bowel gas. FINDINGS: PANCREAS: Limited visualization of pancreatic tail and head. Imaged portion of pancreatic body is unremarkable. ABDOMINAL AORTA: Limited visualization. Imaged portions are unremarkable. INFERIOR VENA CAVA: Visualized portions are normal. LIVER: Increased hepatic parenchymal heterogeneity and echogenicity could be associated with hepatocellular disease/hepatic steatosis and severely limits visualization. Hypoechoic areas within the liver adjacent to the gallbladder are characteristic of focal sparing. Correlation with liver function tests and clinical exam recommended to determine further management. GALLBLADDER: No gallstones. No gallbladder wall thickening. COMMON BILE DUCT: Normal in caliber measuring 0.39 cm in diameter. RIGHT KIDNEY: No hydronephrosis. No renal calculi. Limited visualization. The kidney measures 11.3 cm in maximum dimension. LEFT KIDNEY: No hydronephrosis. No renal calculi. Limited visualization. The kidney measures 11.4 cm in maximum dimension. SPLEEN: Normal. The spleen measures 10.4 cm in maximum dimension. FREE FLUID: None. US/US abdomen complete IMPRESSION: Increased hepatic parenchymal heterogeneity and echogenicity could be associated with hepatocellular disease/hepatic steatosis and severely limits visualization. Hypoechoic areas within the liver adjacent to the gallbladder are characteristic of focal sparing. Correlation with liver function tests and clinical exam recommended to determine further management.
== END 2023-04-14 08:47 | disposition home or self-care (01) ==
LOC: HO.US 08:46
PROVIDERS: PCP Physician Assistant; Visit Provider Internal Medicine
DX: R10.11 Right upper quadrant pain (principal)
CPT/HCPCS: 76700

== ENCOUNTER 2023-06-14 09:08 | Day surgery (SDC) | payer OTHER, SELFPAY ==
[2023-06-12 14:21] VITALS: BMI 31.5
--- NOTE | 2023-06-12 15:31 | HO.ANESPROP2 ---
Documented by User: Kristen Stephen NP 06/12/23 15:32 HPI - Anesthesia Eval Consult details Narrative: 53yo M for Colonoscopy [facility] Active Problems Active Problems: All Active Problems Actinic keratitis (Acute) Leukocytosis (Acute) Bronchitis (Acute) Skin lesion of right arm (Acute) Family history of colon cancer in father (Acute) Tubular adenoma of colon (Acute) Hyperlipidemia (Acute) Noriega's neuroma of left foot (Acute) DMII (diabetes mellitus, type 2) (Acute) Left foot pain (Acute) Abnormal ECG (Acute) Annual physical exam (Acute) Verruca (Acute) DUNCAN (obstructive sleep apnea) (Acute) Sleep disorder breathing (Acute) Diverticula of colon (Acute) Obese (Acute) Chest pain (Acute) HTN (hypertension) (Acute) ELIZA (generalized anxiety disorder) (Acute) Lumbar spine pain (Acute) Muscle spasm of back (Acute) Past Medical History Medical History Bronchitis Back pain Elevated cholesterol Type 2 diabetes mellitus HTN (hypertension) Sleep apnea Family History Family History Father Diabetes Depression Colon cancer Mother Diabetes Depression Breast mass Family/Other Hypertension Surgical History Surgical History History of colonoscopy Social History Social History Housing: Apartment Alcohol intake: current Alcohol intake frequency: holidays/special occasions only Alcohol type: beer Patient Tobacco Use Status: Never used Tobacco e-Cigarette/Vaping Use: Never Used Second Hand Smoke Exposure: No Advance Directives: No Advance Directives Information Provided: Yes Advance Directives on File: No service: No Current occupational status: employed 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 Cognitive needs: No Hearing needs: No Vision needs: No Meds Allergies Allergy/AdvReac Type Severity Reaction Status Date / Time No Known Allergies Allergy Verified 04/11/23 10:04 [No Known Allergies*] Home Medications ?Medication ?Instructions ?Recorded ?Confirmed ?Last Taken ?Type amlodipine 5 mg tablet 5 mg PO DAILY 06/12/23 06/12/23 Unknown History atorvastatin 40 mg tablet 40 mg PO BEDTIME 06/12/23 06/12/23 Unknown History Exam Height,Weight and Vital Signs: Height 5 ft 11 in Weight 102.512 kg Narrative Narrative: EKG 02/2023 Sinus rhythm 69 beats per minute, normal axis, normal ECG, QTC 420 milliseconds. ECHO 2021 Conclusions: - Normal left ventricular size, thickness, systolic function, and wall motion. The visually estimated ejection fraction is between 60-65%. - Normal right ventricular cavity size and systolic function. Assessment and Plan Assessment Anesthesia Assessment: Chart Reviewed Documented by User: Cleo Mcqueen MD 06/14/23 10:58 [facility] Past Medical History Medical History Bronchitis Back pain Elevated cholesterol Type 2 diabetes mellitus HTN (hypertension) Sleep apnea Family History Family History Father Diabetes Depression Colon cancer Mother Diabetes Depression Breast mass Family/Other Hypertension Surgical History Surgical History History of colonoscopy History of Problems with Anesthesia: No Social History Social History Housing: Apartment Alcohol intake: current Alcohol intake frequency: holidays/special occasions only Alcohol type: beer Patient Tobacco Use Status: Never used Tobacco e-Cigarette/Vaping Use: Never Used Second Hand Smoke Exposure: No Advance Directives: No Advance Directives Information Provided: Yes Advance Directives on File: No service: No Current occupational status: employed 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 Cognitive needs: No Hearing needs: No Vision needs: No Meds Allergies Allergy/AdvReac Type Severity Reaction Status Date / Time No Known Allergies Allergy Verified 04/11/23 10:04 [No Known Allergies*] Home Medications ?Medication ?Instructions ?Recorded ?Confirmed ?Last Taken ?Type amlodipine 5 mg tablet 5 mg PO DAILY 06/12/23 06/12/23 Unknown History atorvastatin 40 mg tablet 40 mg PO BEDTIME 06/12/23 06/12/23 Unknown History Exam Airway Mallampati Class: III TM Dist: >3cm Neck ROM: Full Loose/Missing/Broken Teeth: No Heart: RRR Lungs: CTA Assessment and Plan Assessment Anesthesia Assessment: Anesthesia Plan Discussed Final Anesthetic Review History of Problems with Anesthesia: No NPO: Yes ASA Class: III Final Preanesthetic Review: Meds/Allgs Chart Reviewed, Consent Obtained/Reviewed and Anes Risks/Benef Reviewed Patient Risk: Intermediate Procedure Risk: Intermediate Anesthetic Plan Anesthetic Plan: GA Disposition: Standard PACU
[2023-06-14] VITALS (7 sets, daily range): BP systolic 84–127; BP diastolic 48–71; PULSE 70–80; RESP 16–18; TEMP 36.1–36.2; O2SAT 97–99
[2023-06-14 10:14] LABS: Glucose, Whole Blood 122 mg/dL (60-115)
[2023-06-14] MEDS: Lactated Ringers 1,000 ML 100 ML IVCONT (10:32)
--- NOTE | 2023-06-14 11:53 | P.BOP_ITS ---
Brief Operative Note Date of Service: 06/14/23 Pre-op diagnosis: Screening Post-op diagnosis: other (Polyps) Procedure: Colonoscopy to the cecum and TI with bx/removal of polyps Surgeon: En Villarreal MD Anesthesia: MAC Was an Truck Dock Material Mover used for this Procedure?: No Estimated blood loss (mL): 2.0 Pathology: other (A. Transverse colon polyp B. Cecal polyp) Condition: stable Disposition: PACU
--- NOTE | 2023-06-14 21:21 | OP_ITS ---
DATE OF SERVICE: 06/14/2023 SURGEON: En Villarreal MD INDICATIONS: The patient presents for evaluation of personal history of tubular adenoma of the colon and colorectal cancer screening. Full consent has been obtained from him for this, including risks of bleeding and perforation. PREOPERATIVE DIAGNOSIS: Personal history of tubular adenoma of the colon and colorectal cancer screening. POSTOPERATIVE DIAGNOSIS: PROCEDURE PERFORMED: Colonoscopy to cecum and terminal ileum with biopsy and removal of polyps. ESTIMATED BLOOD LOSS: COMPLICATIONS: ANESTHESIA: Monitored anesthesia care. ASSISTANTS: SPECIMENS: POSTOPERATIVE DIAGNOSES: Personal history of tubular adenoma of the colon and colorectal cancer screening, colon polyps, occasional sigmoid diverticulosis, small internal hemorrhoids. DESCRIPTION OF PROCEDURE: The patient was placed in the left lateral decubitus position. The digital rectal exam revealed no abnormalities. The Olympus video pediatric colonoscope was entered into the rectum and advanced easily to the cecum. Once in the cecum, I did identify cecal pouch with appendiceal orifice and a normal-appearing ileocecal valve. The terminal ileum was cannulated and appeared normal. The scope was withdrawn back in the colon. The entire cecum and ileocecal valve were well visualized and appeared normal other than an approximately 4 mm polyp, which was biopsied and completely removed with a cold biopsy forceps. I did not visualize any other cecal abnormality. The scope was then slowly withdrawn assessing all mucosal surfaces carefully. Preparation was excellent throughout the colon other than some small areas of residual liquid, which were irrigated and suctioned away as best as possible. In the transverse colon was an approximately 3 or 4 mm polyp, which was biopsied and completely removed with a cold biopsy forceps. I did not visualize any other polyps, colitis, nor angiodysplasia. There was occasional diverticulum noted in the sigmoid colon. In the rectum, scope was retroflexed visualizing small internal hemorrhoids, but no other pathology. The rectal mucosa appeared normal. The scope was straightened and withdrawn from the patient. He tolerated the procedure well and was returned to the recovery area in stable condition. IMPRESSION: 1. Small colon polyps. 2. Occasional sigmoid diverticulosis. 3. Small internal hemorrhoids. PLAN: I would recommend a repeat colonoscopy in 5 years for further surveillance. The results of the biopsies will be checked. He will see me otherwise on a p.r.n. basis. MD KERRIE Sarmiento/PERRI / [phone]
== END 2023-06-14 13:05 | disposition home or self-care (01) ==
PROVIDERS: PCP Physician Assistant; Visit Provider Internal Medicine
PROC: 0DJD8ZZ Inspection of Lower Intestinal Tract, Via Natural or Artificial Opening Endoscopic (ICD-10-PCS; CPT 45378; principal; 2023-06-14 10:30)
DX: Z12.11 Encounter for screening for malignant neoplasm of colon (principal); D12.0 Benign neoplasm of cecum; K63.5 Polyp of colon; K57.30 Diverticulosis of large intestine without perforation or abscess without bleeding; K64.8 Other hemorrhoids; I10 Essential (primary) hypertension; Z86.010 Personal history of colon polyps
CPT/HCPCS: 45380; 82947; 88305; J2704

== ENCOUNTER 2023-10-09 07:33 | Outpatient (REF) | payer OTHER, SELFPAY ==
[2023-10-09 08:41] LABS: Alanine Aminotransferase 23 U/L (0-40); Albumin Level 4.1 g/dL (3.5-5.0); Alkaline Phosphatase 55 U/L (39-117); Anion Gap 11 (12-20); Aspartate Amino Transferase 17 U/L (5-37); Bilirubin Total 0.3 mg/dL (0.0-1.0); Blood Urea Nitrogen 15 mg/dL (9-16); Calcium 8.9 mg/dL (8.4-10.2); Carbon Dioxide 25 mmol/L (22-29); Chloride 106 mmol/L (96-108); Cholesterol 178 mg/dL (<200); Estimated Glomerular Filt Rate > 60; Glucose Fasting 111 mg/dL (60-99); HDL Cholesterol 46 mg/dL (>40); LDL Cholesterol Calculated 110 mg/dL (<100); Potassium 4.1 mmol/L (3.3-5.1); Sodium 138 mmol/L (135-145); Total Protein 7.5 g/dL (6.5-8.0); Triglycerides 114 mg/dL (<150)
[2023-10-09 09:02] LABS: Estimated Average Glucose 111 mg/dL; Hemoglobin A1c % 5.5 % (<6.0)
[2023-10-09 10:00] LABS: Creatinine Urine 211.97 mg/dL; Microalbum/Creatinine Ratio Ur 4.2 ug/mg cr (<30)
== END 2023-10-09 07:34 | disposition home or self-care (01) ==
LOC: HO.LAB 07:33
PROVIDERS: PCP Physician Assistant; Visit Provider Physician Assistant
DX: I10 Essential (primary) hypertension (principal); E11.65 Type 2 diabetes mellitus with hyperglycemia; E78.2 Mixed hyperlipidemia
CPT/HCPCS: 36415; 80053; 80061; 82043; 82570; 83036

== ENCOUNTER 2023-10-12 08:42 | Outpatient (AMB) | payer OTHER, SELFPAY ==
--- NOTE | 2023-10-12 09:03 | MHC.PC.OV ---
Vital Signs 10/12/23 09:07 Height 5 ft 11 in Weight 222 lb BMI 31.0 BP 126/64 Blood Pressure Location Lt brachial Position Sitting Pulse 70 Pulse Source Pulse Oximeter Pulse Oximetry (%) 99 Oxygen Delivery Method Room Air Intake Visit Reasons: Annual Exam Intake Note: Patient is here today for a physical. Strategies Analyst Required: No Accompanied by: Self / Same As Patient Allergies No Known Allergies [No Known Allergies*] Allergy (Verified 10/12/23 09:10) Medication List - Last Reconciled 10/12/23 by Rafael Ghotra PA-C amlodipine 5 mg PO DAILY atorvastatin 40 mg PO BEDTIME clonazepam 1 mg PO DAILY 30 days hydroxyzine HCl 25 mg PO BEDTIME 90 days ibuprofen 800 mg PO Q12H 30 days lisinopril-hydrochlorothiazide 20-12.5 mg 1 tab PO DAILY metformin 500 mg PO DAILY 30 days triamcinolone acetonide 0.1% 1 appl topical DAILY 15 days Tobacco use date assessed: 04/11/23 Dental Screening Dental Screen Date: 04/11/23 HPI Annual Exam HPI Details Patient is a 53-year-old male here today for a routine annual physical.? Patient has a past medical history significant for type 2 diabetes, hyperlipidemia. Hypertension: Blood pressure acceptable today in office. Continues on lisinopril hydrochlorothiazide. Apparently has stopped amlodipine. .. Type 2 diabetes:? Did start metformin 500 daily. Has lost weight since last office visit A1c much improved at 5.5. Will continue metformin .. Generalized anxiety disorder: Has been fairly well controlled with use of clonazepam. He does have more stress as of late due to personal issues at home as his is recovering from cancer. He does work 2 jobs as well. .. .. Hyperlipidemia:? Most recent lipid panel showing excellent control of his LDL and total cholesterol. He reports he has stopped using a atorvastatin. Would like to continue lifestyle and dietary modifications without statin therapy. PLAN: Will recheck lipid panel in 6 months and if LDL above 130 will consider restarting statin therapy. Vaccines: Up-to-date with COVID vaccine, tetanus vaccine and flu vaccine. UTD with PCV and Colon cancer screening: Colonoscopy done in June of 2023, a few polyps found, repeat 5 years Laboratory Tests 12/09/22 04/11/23 10/09/23 07:41 09:38 07:38 Creatinine Fasting Glucose Hgb A1c (Clinic) 6.4 H Hemoglobin A1c % Cholesterol LDL Cholesterol, C alc 108 H Urine Microalbumin 9.0 10/09/23 07:46 Creatinine 0.80 Fasting Glucose 111 H Hgb A1c (Clinic) Hemoglobin A1c % 5.5 Cholesterol 178 LDL Cholesterol, C alc 110 H Urine Microalbumin [facility] Medical History Bronchitis Back pain Elevated cholesterol Type 2 diabetes mellitus HTN (hypertension) Sleep apnea Surgical History History of colonoscopy Family History Father Diabetes Depression Colon cancer Mother Diabetes Depression Breast mass Family/Other Hypertension Social History (Updated 10/12/23 @ 09:12 by Rafael Ghotra PA-C) Housing: Apartment Alcohol intake: current Alcohol intake frequency: holidays/special occasions only Alcohol type: beer Patient Tobacco Use Status: Never used Tobacco e-Cigarette/Vaping Use: Never Used Second Hand Smoke Exposure: No service: No Current occupational status: employed 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 Cognitive needs: No Hearing needs: No Vision needs: No Questionnaire Thrive Questionnaire Date Thrive assessed: 04/11/23 I am a: Patient What is your living situation today?: I have a steady place to live Within the past 12 months, did the food you bought not last and you didn't have the money to get more?: I choose not to answer this question Within the past 12 months, did you worry whether your food would run out before you got money to buy more?: I choose not to answer this question Do you have trouble paying for medicines?: I choose not to answer this question Do you have trouble getting transportation to medical appointments?: I choose not to answer this question Do you have trouble paying your heating and electricity bill?: I choose not to answer this question Do you have trouble taking care of your child, family member or friend?: I choose not to answer this question Do you have trouble with day-to-day activities such as bathing, preparing meals, shopping, managing finances, etc.?: I choose not to answer this question Are you currently unemployed and looking for a job?: I choose not to answer this question Are you interested in more education?: I choose not to answer this question Please select the resources that you would like help with: None Currently or been in a relationship where the following occur: I choose not to answer THRIVE Score: 0 AUDIT C Alcohol Use Questionnaire (AUDIT-C) 1. How often do you have a drink containing alcohol?: Never Total Score: 0 ELIZA-7 AMB Questionnaire ELIZA-7 Date ELIZA - 7 assessed: 04/11/23 Feeling nervous, anxious, or on edge: 0 = Not at all Not being able to stop or control worryin = Not at all Worrying too much about different things: 0 = Not at all Trouble relaxin = Not at all Being so restless that it is hard to sit still: 0 = Not at all Becoming easily annoyed or irritable: 0 = Not at all Feeling afraid as if something awful might happen: 0 = Not at all Total ELIZA-7 score (0-4 normal; 5-9 mild; 10-14 moderate; 15-21 severe): 0 Source: Developed by Drs. En Hayden, Elizabeth Smalls, Narendra Gaytan and colleagues, with an educational jax from [employer]. ELIZA-7 Assessment Billing ELIZA-7 Assessment Tool: ELIZA-7 Assessment 22103 Review of Systems Const Denies body aches, Denies chills, Denies excessive sweating, Denies fatigue, Denies fever(s) and Denies headache(s) Eyes Denies blurry vision ENT Denies dysphagia, Denies vertigo, Denies dizziness, Denies headache(s), Denies hearing loss and Denies tinnitus Card Denies chest pain, Denies chest pain with activity, Denies syncope, Denies irregular heart rhythm and Denies dyspnea Resp Denies chest congestion, Denies cough, Denies hemoptysis, Denies dyspnea and Denies wheezing GI Denies abdominal pain, Denies melena, Denies hematochezia, Denies coffee ground emesis, Denies dysphagia, Denies diarrhea, Denies nausea and Denies vomiting Denies difficulty urinating, Denies dysuria, Denies urinary frequency, Denies urinary hesitancy and Denies urinary urgency Musc Denies arthralgias, Denies limited range of motion, Denies muscle cramps and Denies muscle weakness Skin/Breast Denies rash and Denies skin ulcer Neuro Denies Abnormal speech present, Denies confusion, Denies vertigo, Denies dizziness, Denies syncope, Denies headache(s), Denies memory loss and Denies seizure-like activity Psych Denies anxiety, Denies confusion, Denies depression, Denies memory loss, Denies panic attacks and Denies paranoia Endo Denies excessive sweating, Denies fatigue, Denies flushing, Denies polydipsia and Denies polyuria Aller/Immun Denies wheezing Physical exam (Primary Care) Vital Signs: Last Vital Signs Pulse 70 10/12/23 09:07 BP 126/64 10/12/23 09:07 Pulse Ox 99 10/12/23 09:07 Oxygen Delivery Method Room Air 10/12/23 09:07 BMI result Body Mass Index 31.0 Tobacco/Smoking Status: Tobacco use Status Tobacco use date assessed 04/11/23 10/12/23 09:08 Patient Tobacco Use Status Never used Tobacco 10/12/23 09:08 e-Cigarette/Vaping Use Never Used 10/12/23 09:08 Thrive Assessment: Date of Thrive Assessment Date Thrive assessed 04/11/23 10/12/23 09:08 Currently or been in a relationship where the following occur: I choose not to answer Const General: cooperative, comfortable, no acute distress, alert and awake; No confusion Orientation/consciousness: oriented to person, oriented to place, patient oriented x3 and No confusion HENMT Head: Yes normocephalic Ears: external ears normal and TM's normal bilaterally Face and sinus: No sinus tenderness Mouth: Normal oral and palatal mucosa present and tongue normal Teeth and gingiva: dentition normal and gingiva normal Throat: Yes posterior oropharynx normal, Yes tonsils normal and Yes uvula midline Eyes Conjunctivae: conjunctivae normal Sclerae: sclerae normal Pupils: Equal, round and reactive pupils present EOM: EOMs intact bilaterally Direct Ophthalmoscopy: No no photophobia Neck Neck: Yes no lymphadenopathy, No tender and Yes no JVD Thyroid: Thyroid normal Carotids: no bruits Chest Chest palpation & inspection: no tenderness Resp Effort & Inspection: normal respiratory effort, no audible wheezes, not labored and no stridor Auscultation: no crackles, no rales, no rhonchi and no wheezes Cardio Jugular venous distension: no JVD Rate: regular rate, not bradycardic and not tachycardic Rhythm: regular rhythm Bruits: no carotid bruits Peripheral pulses: Peripheral pulses 2+ throughout GI Inspection: Yes normal to inspection, No abdominal wall ecchymosis and No visible herniation Palpation (GI): Soft to palpation, nontender, no guarding, not rigid and No hepatosplenomegaly present Auscultation: normoactive bowel sounds General: Yes no CVA tenderness Back/Spine/Pelvis Back: no CVA tenderness and No back tenderness Cervical Spine: cervical ROM normal Thoracic/Lumbar Spine: thoracic and lumbar spine normal to inspection, straight leg raise negative bilaterally, No thoraco-lumbar ROM limited and No lumbar spinal tenderness Skin Lesions: no lesions Rashes: no rashes Wounds: no wounds Neuro General: oriented to person, oriented to place, patient oriented x3, CN's II-XI intact bilaterally and No confusion Cranial nerves: Yes Equal, round and reactive pupils present and Yes Normal accommodation reflex present Cognition (Neuro): normal cognition Speech: No Abnormal speech present Gait exam (Neuro): Normal gait present Motor exam (neuro): 5/5 motor strength present throughout Extrem Right upper extremity: full ROM; no cyanosis Left upper extremity: full ROM; no cyanosis Right lower extremity: no edema Left lower extremity: no edema Psych Appearance: grossly normal Mental Status: mental status grossly normal Affect: normal affect Attitude: cooperative Thought process: Normal thought process present Assessment and Plan Assessment & Plan (1) Annual physical exam: Code(s): Z00.00 - Encounter for general adult medical examination without abnormal findings (2) ELIZA (generalized anxiety disorder): Code(s): F41.1 - Generalized anxiety disorder Plan: Patient reports his anxiety is fairly well controlled though does have a fear of heights which causes him increased anxiety. Does use clonazepam 3-4 times per week with good effect. (3) DMII (diabetes mellitus, type 2): Code(s): E11.9 - Type 2 diabetes mellitus without complications Qualifiers: Diabetes mellitus senior care insulin use: without watermelon inspector use Diabetes mellitus complication status: with hyperglycemia Qualified Code(s): E11.65 - Type 2 diabetes mellitus with hyperglycemia Plan: Type 2 diabetes well controlled with lifestyle modifications. We did recently add on metformin 500 mg daily. Has been reducing his carbohydrates in his diet. Today's A1c is 5.5 from 6.4. Will continue lifestyle modifications to control his type 2 diabetes. (4) Hyperlipidemia: Code(s): E78.5 - Hyperlipidemia, unspecified Qualifiers: Hyperlipidemia type: mixed hyperlipidemia Qualified Code(s): E78.2 - Mixed hyperlipidemia Plan: Patient continues on statin therapy without any side effect. Most recent lipid panel showing appropriate LDL and total cholesterol. Goal LDL to remain below 130. (5) HTN (hypertension): Comment: Stable Code(s): I10 - Essential (primary) hypertension Qualifiers: Hypertension type: essential hypertension Qualified Code(s): I10 - Essential (primary) hypertension Plan: Blood pressure acceptable today in office. Continues on lisinopril hydrochlorothiazide with good effect. Apparently is not taking amlodipine though blood pressure readings seems to be okay. Will continue with lisinopril hydrochlorothiazide with goal blood pressure to remain below 140/90 Orders: Orders Microalbumin, Random (w Creat) 6 Months I10 - Essential (primary) hypertension Hemoglobin A1c 6 Months E11.65 - Type 2 diabetes mellitus with hyperglycemia Prostate Specific Antigen Scr 6 Months I10 - Essential (primary) hypertension, Z12.5 - Encounter for screening for malignant neoplasm of prostate Complete Blood Count no Diff 6 Months I10 - Essential (primary) hypertension Comprehensive [place]. Panel Fast 6 Months I10 - Essential (primary) hypertension Lipid Panel 6 Months E78.2 - Mixed hyperlipidemia Medications: Changed From metformin 500 mg PO DAILY 30 days 30 tabs 1RF E11.65 - Type 2 diabetes mellitus with hyperglycemia To metformin 500 mg PO DAILY 90 days 90 tabs 2RF E11.65 - Type 2 diabetes mellitus with hyperglycemia Patient Instructions: Goal: A1c to remain below 6.5, blood pressure remain below 140/90 Barriers: Adherence to physical activity and healthy eating habits Coding Level of Care Code Est Pt Prev Care 40-64y([id number]) Diagnoses Annual physical exam Z00.00 ELIZA (generalized anxiety disorder) F41.1 Type 2 diabetes mellitus with hyperglycemia, without long-term current use of insulin E11.65 Diabetes mellitus senior care insulin use: without senior care use Diabetes mellitus complication status: with hyperglycemia Mixed hyperlipidemia E78.2 Hyperlipidemia type: mixed hyperlipidemia Essential hypertension I10 Hypertension type: essential hypertension Additional Codes ELIZA-7 Assessment Billing - ELIZA-7 Assessment Tool: ELIZA-7 Assessment [id number] ([id number])
[2023-10-12 09:07] VITALS: BP 126/64; PULSE 70; O2SAT 99; BMI 31.0
== END 2023-10-12 09:28 | disposition home or self-care (01) ==
PROVIDERS: PCP Physician Assistant; Visit Provider Physician Assistant
DX: Z00.00 Encounter for general adult medical examination without abnormal findings (principal); F41.1 Generalized anxiety disorder; E11.65 Type 2 diabetes mellitus with hyperglycemia; E78.2 Mixed hyperlipidemia; I10 Essential (primary) hypertension
CPT/HCPCS: 99396

== ENCOUNTER 2024-03-04 09:30 | Outpatient (AMB) | payer OTHER, SELFPAY ==
[2024-03-04 09:33] VITALS: BP 110/72; PULSE 70; BMI 32.5
--- NOTE | 2024-03-04 09:33 | A.OFFVIS_ITS ---
Vital Signs 03/04/24 09:33 Height 5 ft 11 in Weight 232 lb 12.93 oz BMI 32.5 BP 110/72 Blood Pressure Location Lt brachial Position Sitting Pulse 70 Pulse Source Monitor Intake Visit Reasons: 1 yr f/up Intake Note: 1 yr f/up Sueding Machine Tender Required: Yes Sueding Machine Tender Language: Rn Urology Name: betty/molly/dank [id number] Accompanied by: Self / Same As Patient Allergies No Known Allergies [No Known Allergies*] Allergy (Verified 10/12/23 09:10) Medication List - Last Reconciled 03/04/24 by Orion Rutherford MD clonazepam 1 mg PO DAILY 30 days hydroxyzine HCl 25 mg PO BEDTIME 90 days ibuprofen 800 mg PO Q12H 30 days lisinopril-hydrochlorothiazide 20-12.5 mg 1 tab PO DAILY metformin 500 mg PO DAILY 90 days triamcinolone acetonide 0.1% 1 appl topical DAILY 15 days HPI Comments Details: 53-year-old gentleman here for follow-up. He was seen previously for burning chest discomfort at rest and with exertion. He underwent exercise stress test which was normal. He has background of hypertension. Blood pressure control is good. His EKG on previous visit showed inferior Q-waves and he underwent echocardiography. Echocardiography showed no regional wall motion abnormalities. He has been doing well and has no exertional symptoms. He is starting to become more active and plans to play basketball with his son. Blood pressure control is good. He is compliant with medications. He is cutting back on sugars in his diet because he has been diagnosed with diabetes and his hemoglobin A1c was 6.7 recently. His triglycerides were 160, cholesterol 178, LDL 102 an HDL 44. Given diagnosis of diabetes I think he should be started on statin He is back for follow-up. He is doing well. No chest pain or shortness of breath. Tolerating statin therapy well. 03/01/2023: He returns for follow-up. He has been doing well. Blood pressure is well controlled. He is not taking statins anymore. He is saying he has not diabetic and he was told that he does not need statins. He has a little upset that diabetes is still a diagnosis in his chart and wanted the diagnosis to be removed from his records. 03/04/2023: Here for follow-up. BP is stable. He has restarted the statins. Taking regularly for more than a month. He will be getting repeat labs through PCP. [facility] Medical History Bronchitis Back pain Elevated cholesterol Type 2 diabetes mellitus HTN (hypertension) Sleep apnea Surgical History (Reviewed 03/04/24 @ 09:37 by Gely Albarado [facility]) History of colonoscopy Family History (Reviewed 03/04/24 @ 09:37 by Gely Albarado [facility]) Father Diabetes Depression Colon cancer Mother Diabetes Depression Breast mass Family/Other Hypertension Social History (Reviewed 03/04/24 @ 09:37 by Gely Albarado 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 Cognitive needs: No Hearing needs: No Vision needs: No Review of Systems Const Denies chills, Denies fatigue, Denies fever(s), Denies frequent falls, Denies weakness, Denies weight gain and Denies weight loss ENT Denies dizziness Card Denies chest pain, Denies leg edema, Denies lightheadedness, Denies palpitations, Denies dyspnea and Denies dyspnea on exertion Resp Denies cough, Denies dyspnea and Denies dyspnea on exertion GI Denies hematochezia Musc Denies abnormal gait, Denies muscle weakness, Denies numbness, Denies radiating pain into limb and Denies tingling Neuro Denies abnormal gait, Denies dizziness, Denies frequent falls, Denies numbness, Denies tingling and Denies weakness Endo Denies fatigue and Denies palpitations Physical Exam Vital Signs: Last Vital Signs Pulse 70 03/04/24 09:33 BP 110/72 03/04/24 09:33 BMI result Body Mass Index 32.5 GENERAL APPEARANCE: in no acute distress, pleasant. NECK: no carotid bruit, no jugular venous distention. SKIN: no suspicious lesions, warm and dry. HEART: no murmurs, regular rate and rhythm. LUNGS: clear to auscultation bilaterally. ABDOMEN: soft, nontender. EXTREMITIES: no edema. PERIPHERAL PULSES: equal. NEUROLOGIC: No gross deficits, AAO X 3 Office Procedures EKG Details: Sinus rhythm 70 beats per minute, normal axis, QTC 423 milliseconds. 58212-Vzwofxvkoxrnjxuif, Complete Assessment & Plan Assessment & Plan (1) HTN (hypertension): Comment: Stable Code(s): I10 - Essential (primary) hypertension Category: Medical Qualifiers: Hypertension type: essential hypertension Qualified Code(s): I10 - Essential (primary) hypertension (2) Hyperlipidemia: Code(s): E78.5 - Hyperlipidemia, unspecified Category: Medical Qualifiers: Hyperlipidemia type: mixed hyperlipidemia Qualified Code(s): E78.2 - Mixed hyperlipidemia Plan 53 male with HTN and HLD. BP well controlled. Last LDL 110. For DM, target should be 70 or below. He has restarted statins. Will need repeat LDL. f/u in 6 months. Coding Level of Care Code Est Pt Level 3 (68674) Diagnoses Essential hypertension I10 Hypertension type: essential hypertension Mixed hyperlipidemia E78.2 Hyperlipidemia type: mixed hyperlipidemia CPT Codes EKG - CPT: 64755-Wjgflewtggyorrwue, Complete ([id number])
== END 2024-03-04 10:13 | disposition home or self-care (01) ==
PROVIDERS: PCP Physician Assistant; Visit Provider Internal Medicine Cardiovascular Disease
DX: I10 Essential (primary) hypertension (principal); E78.2 Mixed hyperlipidemia
CPT/HCPCS: 93010; 99213

== ENCOUNTER → 2024-03-04 09:30 | Outpatient (BNVA) | payer OTHER, SELFPAY | PROVIDERS: PCP Physician Assistant; Visit Provider Internal Medicine Cardiovascular Disease | DX: I10 Essential (primary) hypertension (principal); E78.2 Mixed hyperlipidemia | CPT/HCPCS: 93005; 99212 ==

== ENCOUNTER 2024-04-06 08:25 | Outpatient (REF) | payer OTHER, SELFPAY ==
--- OUTSIDE RECORDS SUMMARY | 2024-04-06 08:27 | XMS_ITS | Patient Health Record ---
Author Organization [facility] Address [address] [place] [address] Care Team Providers Care Ocular Care Technologist Name Role Phone Rafael Ghotra Primary Care Provider Unavailab En Vargas Unavailable [phone] ALLERGIES No Known Allergies RESULTS Component Value Reference Range Notes US abdomen complete Reviewed date:05/07/2023 03:51:23 PM Interpretation: Performing Lab: Notes/Report: [address] [address] Ultrasound Report Signed Patient: Leandro Landaverde MR#: [id number] 3 : 1970 Acct:[id number] Age/Sex: 53 / M ADM Date: 04/14/23 Loc: HO.US Attending Dr: En Villarreal MD Ordering Physician: En Villarreal Date of Service: 04/14/23 Procedure(s): US abdomen complete Accession Number(s): [id number] cc: Rafael Ghotra PA-C; En Villarreal EXAMINATION: US ABDOMEN COMPLETE CLINICAL INFORMATION: Right upper quadrant pain. COMPARISON: Renal ultrasound 05/09/2018 and 10/20/2017. CT abdomen and pelvis 08/18/2016. TECHNIQUE: Real-time imaging of the abdominal viscera. Limited visualization due to bowel gas. FINDINGS: PANCREAS: Limited visualization of pancreatic tail and head. Imaged portion of pancreatic body is unremarkable. ABDOMINAL AORTA: Limited visualization. Imaged portions are unremarkable. INFERIOR VENA CAVA: Visualized portions are normal. LIVER: Increased hepatic parenchymal heterogeneity and echogenicity could be associated with hepatocellular disease/hepatic steatosis and severely limits visualization. Hypoechoic areas within the liver adjacent to the gallbladder are characteristic of focal sparing. Correlation with liver function tests and clinical exam recommended to determine further management. GALLBLADDER: No gallstones. No gallbladder wall thickening. COMMON BILE DUCT: Normal in caliber measuring 0.39 cm in diameter. RIGHT KIDNEY: No hydronephrosis. No renal calculi. Limited visualization. The kidney measures 11.3 cm in maximum dimension. LEFT KIDNEY: No hydronephrosis. No renal calculi. Limited visualization. The kidney measures 11.4 cm in maximum dimension. SPLEEN: Normal. The spleen measures 10.4 cm in maximum dimension. FREE FLUID: None. US/US abdomen complete IMPRESSION: Increased hepatic parenchymal heterogeneity and echogenicity could be associated with hepatocellular disease/hepatic steatosis and severely limits visualization. Hypoechoic areas within the liver adjacent to the gallbladder are characteristic of focal sparing. Correlation with liver function tests and clinical exam recommended to determine further management. Dictated By: Karla Cook MD Signed By: <Electronically signed by Karla Cook MD in OV> 04/17/23819 DD/ 9 TD/TT: Coat Joiner Lockstitch: Pathology (Not yet reviewed by provider) Interpretation: Performing Lab:[facility], [address] [place] [phone] Notes/Report: Glucose, Whole Blood Reviewed date:06/14/2023 07:39:56 PM Interpretation: Performing Lab:[facility], [address] [place] [phone] Notes/Report: Glucose, Whole Blood 122 60-115 mg/dL METER # : [id number] REASON FOR REFERRAL No Information MEDICATIONS Medication SIG (Take, Route, Frequency, Duration) Notes Start Date End Date Status Atorvastatin Calcium 40 MG Oral for 90 Active hydrOXYzine HCl 25 MG TAKE 1 TABLET BY M OUTH EVERYDAY AT BEDTIME Oral for 90 Active amLODIPine Besylate 5 MG Oral for 90 Active clonazePAM 1 MG Oral for 30 Ac tive MiraLax (colon prep) 17 GM/SCOOP 1 238GM bottle mixed with Gatorade or Crystal Light Orally begin at 5:00 p.m. the day before the procedure for 1 day 03/28/2023 Active Benzonatate 200 MG 1 capsule Orally Thr ee times a day for 30 day(s) Active Lisinopril-hydroCHLOROthiaz mikal 10-12.5 MG TAKE 1 TABLET BY MOUTH EVERY DAY Oral for 90 Active Dulcolax (colon prep) 5 MG take at 3:00 p.m and 7:00p.m. Orally two tablets twice a day for one day for 1 day 03/28/2023 Active Ibuprofen 800 MG 1 tablet with food o r milk as needed Orally every 8 hrs Active SOCIAL HISTORY Tobacco Use: Social History Observation Description Date Details (start date - stop date) Never Smoker NA - NA Sex Assigned At : Social History Observation Description Sex Assigned At Unknown Tobacco Use/Smoking Question Answer Notes Patient is a nonsmoker Alcohol Screen Question Answer Notes Did you have a drink contain ing alcohol in the past year? Yes How often did you have a dri nk containing alcohol in the past year? Monthly or less (1 point) How many drinks did you have on a typical day when you were drinking in the past year? 1 or 2 drinks (0 point) How often did you have 6 or more drinks on one occasion in the past year? Never (0 point) Points 1 Interpretation Negative PROBLEMS Problem Type ICD Code Onset Dates Problem Status W/U Status Risk SNOMED Code Notes Problem Diverticulitis (K57.92) Active confirmed 775760466 Problem Abnormal CT scan, colon (R93.3) Active confirmed 717211475 Problem RUQ pain (R10.11) Active confirmed Righ t upper quadrant pain (950191701) Problem Personal history of colonic polyps (Z86.010) Active confirmed History of polyp of colon (situation) (503584984) Problem Colon cancer screening (Z12.11) Active confirmed Colon can cer screening (841720057) Problem Diverticulosis of large intestine without perforation or abscess without bleeding (K57.30) Active confirmed Diverticul ar disease of colon (133138003) Encounters Encounter Location Date Provider Diagnosis [facility] [place] Outpatient [address] [place] [phone] 06/14/2023 En Villarreal Encounter for scre ening colonoscopy Z12.11 ; Colon polyps K63.5 ; Diverticulosis of large intestine without perforation or abscess without bleeding K57.30 and Other hemorrhoids K64.8 ASSESSMENTS Encounter Date Diagnosis Assessment Notes Treatment Notes Treatment Clinical Notes 06/14/2023 Encounter for screening colonoscopy (ICD-10 - Z12.11) 06/14/2023 Colon polyps (ICD-10 - K63.5) 06/14/2023 Diverticulosis of large intestine without perforation or abscess without bleeding (ICD-10 - K57.30) 06/14/2023 Other hemorrhoids (ICD-10 - K64.8) PLAN OF TREATMENT Pending Test Test Name Order Date US ABD 03/28/2023 Pathology 06/14/2023 Future Test Test Name Order Date COLONOSCOPY 12/29/2016 COLONOSCOPY 03/28/2023 Insurance Providers Payer Name Payer Address Payer Phone Subscriber Number Group Number Insured Name Patient Relationship to Insured Coverage Start Date Coverage End Date [facility] [address] [address] [place], [place] [id number] LEANDRO LANDAVERDE Self - patient is the insured MEDICAL (GENERAL) HISTORY Medical History History ICD Code Hypertension Denies NV,DM,CVA,Lung disease,renal dise ase Sigmoid diverticulitis in 08/2016---had a CT in ER Back pain Screening colonoscopy in 03/17 018 with diverticulosis and 1 small cecal tubular adenoma removed Hyperlipidemia Surgical History Surgery Date(Month/Year)
--- OUTSIDE RECORDS SUMMARY | 2024-04-06 08:27 | XMS_ITS ---
Author Organization [facility] Address [address] [place] [address] Care Team Providers Care Registered Nurse Maternity Name Role Phone Rafael Ghotra Primary Care Provider UnavailEn Mclaughlin [phone] REASON FOR VISIT please send colon prep to pharmacy MEDICATIONS Medication SIG (Take, Route, Frequency, Duration) Notes Start Date End Date Status MiraLax (colon prep) 17 GM/SCOOP 1 238GM bottle mixed with Gatorade or Crystal Light Orally begin at 5:00 p.m. the day before the procedure for 1 day 03/28/2023 Active Dulcolax (colon prep) 5 MG take at 3:00 p.m and 7:00p.m. Orally two tablets twice a day for one day for 1 day 03/28/2023 Active Encounters Encounter Location Date Provider [facility] [address] [address] 03/28/2023 En Villarreal PLAN OF TREATMENT Medication Medication Name Sig Start Date Stop Date Notes MiraLax (colon prep) 17 GM/SCOOP 1 238GM bottle mixed with Gatorade or Crystal Light Orally begin at 5:00 p.m. the day before the procedure for 1 day 03/28/2023 Dulcolax (colon prep) 5 MG take at 3:00 p.m and 7:00p.m. Orally two tablets twice a day for one day for 1 day 03/28/2023
--- OUTSIDE RECORDS SUMMARY | 2024-04-06 08:27 | XMS_ITS ---
Author Organization [facility] Address [address] [place] [address] Care Team Providers Care Maintenance Supervisor Name Role Phone Rafael Ghotra Primary Care Provider En Charles Unavailable [phone] ALLERGIES No Known Allergies REASON FOR VISIT Patient presents today for a colon screening MEDICATIONS Medication SIG (Take, Route, Frequency, Duration) Notes Start Date End Date Status Atorvastatin Calcium 40 MG Oral for 90 Active hydrOXYzine HCl 25 MG TAKE 1 TABLET BY M OUTH EVERYDAY AT BEDTIME Oral for 90 Active amLODIPine Besylate 5 MG Oral for 90 Active clonazePAM 1 MG Oral for 30 Ac tive Benzonatate 200 MG 1 capsule Orally Thr ee times a day for 30 day(s) Active Lisinopril-hydroCHLOROthiaz mikal 10-12.5 MG TAKE 1 TABLET BY MOUTH EVERY DAY Oral for 90 Active Ibuprofen 800 MG 1 tablet with [...] W/U Status Risk SNOMED Code Notes Problem RUQ pain (R10.11) Active confirmed Right upper quadrant pain (549156913) Problem Personal history of colonic polyps (Z86.010) Active confirmed History of polyp of colon (situation) (202799642) Problem Colon cancer screening (Z12.11) Active confirmed Colon cancer screening (785625581) VITAL SIGNS BMI 31.52 kg/m2 03/28/2023 Blood pressure systolic 00 mm Hg 03/28/19 24 Blood pressure diastolic 00 mm Hg 024 Height 71 in 03/28/2023 Temperature 98.4 degrees Fahrenheit 03/28/19 24 Weight 226 lbs 03/28/2023 Encounters Encounter Location Date Provider Diagnosis [facility] [address] [place] [address] 03/28/2023 En Villarreal RUQ pain R10.11 ; Personal history of colonic polyps Z86.010 and Colon cancer screening Z12.11 ASSESSMENTS Encounter Date Diagnosis Assessment Notes Treatment Notes Treatment Clinical Notes 03/28/2023 RUQ pain (ICD-10 - R10.11) 03/28/2023 Personal history of colonic polyps (ICD-10 - Z86.010) 03/28/2023 Colon cancer screening (ICD-10 - Z12.11) PLAN OF TREATMENT Pending Test Test Name Order Date US ABD 03/28/2023 Future Test Test Name Order Date COLONOSCOPY 03/28/2023 Next Appt Details Follow Up: prn, Reason: Progress Notes * Examination Category Sub-Category Detail Notes General Examination GENERAL APPEARANCE: pleasant , well nourished, well developed, in no acute distress HEAD: EYES: sclera non-icteric EARS: NOSE: THROAT: NECK/THYROID: no cervical lymphade nopathy, neck supple HEART: S1, S2 normal CHEST: LUNGS: clear to auscultatio n bilaterally ABDOMEN: normal bowel sounds, no guarding or rigidity, no guarding or rigidity, no masses palpable, soft, nontender, nondistended NEUROLOGIC: alert and oriented SKIN: nonjaundiced, no spi star angiomata EXTREMITIES: no edema PERIPHERAL PULSES: BACK: BREASTS: MUSCULOSKELETAL: MALE GENITOURINARY: LYMPH NODES: RECTAL EXAM: FEMALE GENITOURINARY: ORAL CAVITY: mucosa moist
--- OUTSIDE RECORDS SUMMARY | 2024-04-06 08:27 | XMS_ITS ---
Author Organization [facility] Address [address] [place] [address] Care Team Providers Care Printing Engineer Name Role Phone Rafael Ghotra Primary Care Provider Unavailab En Vargas Unavailable [phone] REASON FOR VISIT screening colon PROBLEMS Problem Type ICD Code Onset Dates Problem Status W/U Status Risk SNOMED Code Notes Problem Diverticulosis of large intestine without perforation or abscess without bleeding (K57.30) Active confirmed Diverticul ar disease of colon (389072286) Encounters Encounter Location Date Provider Diagnosis [facility] [place] [address], [place] [phone] 06/14/2023 En Villarreal Encounter for scre ening [...] hemorrhoids (ICD-10 - K64.8) PLAN OF TREATMENT No Information
[2024-04-06 09:08] LABS: Hematocrit 41.5 % (42.0-52.0); Hemoglobin 13.9 g/dl (14.0-18.0); Mean Corpuscular HGB Conc 33.5 g/dl (31.0-36.0); Mean Corpuscular Hemoglobin 28.2 pg (27.0-33.0); Mean Corpuscular Volume 84.2 fL (80.0-98.0); Mean Platelet Volume 8.9 fL (9.4-12.4); Platelet Count 289 X10*3/uL (160-400); Red Blood Count 4.93 X10*6/uL (4.60-5.80); Red Cell Distribution Width 12.8 % (11.0-16.0); White Blood Count 11.3 X10*3/uL (4.8-10.8)
[2024-04-06 09:19] LABS: Estimated Average Glucose 126 mg/dL; Hemoglobin A1C 151.2119 umol/L
[2024-04-06 10:07] LABS: Prostate Specific Antigen Scr 0.67 ng/mL (<0.05-4.0)
[2024-04-06 10:12] LABS: Alanine Aminotransferase 50 U/L (0-40); Albumin Level 4.2 g/dL (3.5-5.0); Alkaline Phosphatase 65 U/L (39-117); Anion Gap 12 (12-20); Aspartate Amino Transferase 31 U/L (5-37); Bilirubin Total 0.4 mg/dL (0.0-1.0); Blood Urea Nitrogen 11 mg/dL (9-16); Calcium 9.1 mg/dL (8.4-10.2); Carbon Dioxide 24 mmol/L (22-29); Chloride 104 mmol/L (96-108); Cholesterol 102 mg/dL (<200); Estimated Glomerular Filt Rate > 60; Glucose Fasting 113 mg/dL (60-99); HDL Cholesterol 42 mg/dL (>40); LDL Cholesterol Calculated 45 mg/dL (<100); Potassium 3.9 mmol/L (3.3-5.1); Sodium 136 mmol/L (135-145); Triglycerides 79 mg/dL (<150)
[2024-04-06 11:29] LABS: Creatinine Urine 172.89 mg/dL; Microalbumin Urine < 5.0 mg/L
== END 2024-04-06 08:26 | disposition home or self-care (01) ==
LOC: HO.LAB 08:25
PROVIDERS: PCP Physician Assistant; Visit Provider Physician Assistant
DX: I10 Essential (primary) hypertension (principal); E11.65 Type 2 diabetes mellitus with hyperglycemia; Z12.5 Encounter for screening for malignant neoplasm of prostate; E78.2 Mixed hyperlipidemia
CPT/HCPCS: 36415; 80053; 80061; 82043; 82570; 83036; 84153; 85027

== ENCOUNTER 2024-04-11 08:35 | Outpatient (AMB) | payer OTHER, SELFPAY ==
[2024-04-11 08:40] VITALS: BP 110/74; PULSE 85; O2SAT 96; BMI 31.5
--- NOTE | 2024-04-11 08:40 | MHC.PC.OV ---
Vital Signs 04/11/24 08:40 Height 5 ft 11 in Weight 226 lb BMI 31.5 BP 110/74 Blood Pressure Location Lt brachial Position Sitting Pulse 85 Pulse Source Pulse Oximeter Pulse Oximetry (%) 96 Oxygen Delivery Method Room Air Intake Visit Reasons: 6 month f/u HLD/ HTN Changer Fixer Required: No Accompanied by: Self / Same As Patient Allergies No Known Allergies [No Known Allergies*] Allergy (Verified 04/11/24 08:47) Medication List - Last Reconciled 04/11/24 by Rafael Ghotra PA-C atorvastatin 40 mg PO BEDTIME clonazepam 1 mg PO DAILY 30 days hydroxyzine HCl 25 mg PO BEDTIME 90 days ibuprofen 800 mg PO Q12H 30 days lisinopril-hydrochlorothiazide 20-12.5 mg 1 tab PO DAILY metformin 500 mg PO DAILY 90 days triamcinolone acetonide 0.1% 1 appl topical DAILY 15 days Tobacco use date assessed: 04/11/24 Dental Screening Dental Screen Date: 04/11/24 Did you have a dental visit in the last 12 months?: Yes Did you have a dental problem in the last 6 months where you did not have access to dental care?: No Was dental information given to patient?: Patient has dentist HPI 6 month f/u HLD/ HTN HPI Details Patient is a 54-year-old male here today for a follow-up visit.? Patient has a past medical history significant for type 2 diabetes, hyperlipidemia. Concern--> reports lately having early satiety. He does not report any particular epigastric pain though at times has heartburn. He reports no issues use in the restroom. Hypertension: Blood pressure acceptable today in office. Continues on lisinopril hydrochlorothiazide. Apparently has stopped amlodipine. .. Type 2 diabetes:? Did start metformin 500 daily. . Will continue metformin. Most recent A1c at 6.0. Has not blood sugar remains slightly elevated. He reports he has made dietary changes .. Generalized anxiety disorder: Has been fairly well controlled with use of clonazepam. He does have more stress as of late due to personal issues at home as his is recovering from cancer. He does work 2 jobs as well. .. .. Hyperlipidemia:? Most recent lipid panel showing excellent control of his LDL and total cholesterol. He has restarted using atorvastatin, has followed up with Cardiology here in [place] as well. Will continue with dietary and lifestyle modifications. Laboratory Tests 12/09/22 04/11/23 10/09/23 07:41 09:38 07:46 WBC Hgb 14.5 Creatinine Fasting Glucose 111 H Hgb A1c (Clinic) 6.4 H Hemoglobin A1c % 5.5 ALT 23 LDL Cholesterol, C alc 110 H Cholesterol PSA Screen Urine Microalbumin 04/06/24 04/06/24 08:32 08:35 WBC 11.3 H Hgb 13.9 L Creatinine 0.82 Fasting Glucose 113 H Hgb A1c (Clinic) Hemoglobin A1c % 6.0 ALT 50 H LDL Cholesterol, C alc 45 Cholesterol 102 PSA Screen 0.67 Urine Microalbumin < 5.0 PFSH Medical History Bronchitis Back pain Elevated cholesterol Type 2 diabetes mellitus HTN (hypertension) Sleep apnea Surgical History History of colonoscopy Family History Father Diabetes Depression Colon cancer Mother Diabetes Depression Breast mass Family/Other Hypertension Social History Housing: Apartment Alcohol intake: current Alcohol intake frequency: holidays/special occasions only Alcohol type: beer Patient Tobacco Use Status: Never used Tobacco e-Cigarette/Vaping Use: Never Used Second Hand Smoke Exposure: No service: No Current occupational status: employed Current occupation: [employer] Cognitive needs: No Hearing needs: No Vision needs: No Questionnaire PHQ-9 Over the last 2 weeks, how often have you been bothered by any of the following problems? 1. Little interest or pleasure in doing things: not at all 2. Feeling down, depressed, or hopeless: not at all 3. Trouble falling or staying asleep, or sleeping too much: not at all 4. Feeling tired or having little energy: not at all 5. Poor appetite or overeating: not at all 6. Feeling bad about yourself - or that you are a failure or have let yourself or your family down: not at all 7. Trouble concentrating on things, such as reading the newspaper or watching television: not at all 8. Moving or speaking so slowly that other people could have noticed. Or the opposite - being so fidgety or restless that you have been moving around a lot more than usual: not at all 9. Thoughts that you would be better off or of hurting yourself in some way: not at all Total score: 0 Depression Screening Interpretation: Negative Depression Screening Done: Yes 95596 - PHQ-9 Billing: Yes Source: Developed by Drs. En Hayden, Elizabeth Smalls, Narendra Gaytan and colleagues, with an educational jax from [employer]. Thrive Questionnaire Date Thrive assessed: 04/11/24 I am a: Patient What is your living situation today?: I have a steady place to live Within the past 12 months, did the food you bought not last and you didn't have the money to get more?: I choose not to answer this question Within the past 12 months, did you worry whether your food would run out before you got money to buy more?: I choose not to answer this question Do you have trouble paying for medicines?: I choose not to answer this question Do you have trouble getting transportation to medical appointments?: I choose not to answer this question Do you have trouble paying your heating and electricity bill?: I choose not to answer this question Do you have trouble taking care of your child, family member or friend?: I choose not to answer this question Do you have trouble with day-to-day activities such as bathing, preparing meals, shopping, managing finances, etc.?: I choose not to answer this question Are you currently unemployed and looking for a job?: I choose not to answer this question Are you interested in more education?: I choose not to answer this question Please select the resources that you would like help with: None Currently or been in a relationship where the following occur: I choose not to answer THRIVE Score: 0 AUDIT C Alcohol Use Questionnaire (AUDIT-C) 1. How often do you have a drink containing alcohol?: Monthly or less 2. How many drinks containing alcohol do you have on a typical day when you are drinking?: 1 or 2 3. How often do you have six or more drinks on one occasion?: Never Total Score: 1 ELIZA-7 AMB Questionnaire ELIZA-7 Date ELIZA - 7 assessed: 04/11/24 Feeling nervous, anxious, or on edge: 0 = Not at all Not being able to stop or control worryin = Not at all Worrying too much about different things: 0 = Not at all Trouble relaxin = Not at all Being so restless that it is hard to sit still: 0 = Not at all Becoming easily annoyed or irritable: 0 = Not at all Feeling afraid as if something awful might happen: 0 = Not at all Total ELIZA-7 score (0-4 normal; 5-9 mild; 10-14 moderate; 15-21 severe): 0 Source: Developed by Drs. En Hayden, Elizabeth Smalls, Narendra Gaytan and colleagues, with an educational jax from [employer]. ELIZA-7 Assessment Billing ELIZA-7 Assessment Tool: ELIZA-7 Assessment 55389 Review of Systems Const Denies headache(s) Eyes Denies loss of vision ENT Denies vertigo, Denies dizziness, Denies headache(s) and Denies sore throat Card Denies chest pain, Denies leg edema and Denies lightheadedness Resp Denies cough, Denies hemoptysis and Denies wheezing GI Denies abdominal pain, Denies melena, Denies constipation, Denies diarrhea and Denies vomiting Denies dysuria, Denies urinary frequency and Denies urinary urgency Musc Denies arthralgias, Denies joint swelling, Denies numbness and Denies tingling Neuro Denies Abnormal speech present, Denies behavioral changes, Denies vertigo, Denies dizziness, Denies headache(s), Denies loss of vision, Denies memory loss, Denies numbness and Denies tingling Psych Denies anxiety, Denies behavioral changes, Denies depression, Denies memory loss and Denies panic attacks Bipin/Lymph Denies easy bleeding and Denies easy bruising Aller/Immun Denies wheezing Physical exam (Primary Care) Vital Signs: Last Vital Signs Pulse 85 04/11/24 08:40 BP 110/74 04/11/24 08:40 Pulse Ox 96 04/11/24 08:40 Oxygen Delivery Method Room Air 04/11/24 08:40 BMI result Body Mass Index 31.5 Tobacco/Smoking Status: Tobacco use Status Tobacco use date assessed 04/11/24 04/11/24 08:44 Patient Tobacco Use Status Never used Tobacco 04/11/24 08:44 e-Cigarette/Vaping Use Never Used 04/11/24 08:44 PHQ-9: PHQ-9 Score PHQ-9: Total score 0 04/11/24 08:49 Depression Screening Interpretation: Negative Thrive Assessment: Date of Thrive Assessment Date Thrive assessed 04/11/24 04/11/24 08:44 Currently or been in a relationship where the following occur: I choose not to answer Const General: healthy appearing, no acute distress, alert and awake Nutritional Appearance: well nourished Orientation/consciousness: oriented to person, oriented to place and oriented to time HENMT Ears: TM's normal bilaterally General nose exam: Normal nasal mucous membranes and turbinates present Eyes Conjunctivae: conjunctivae normal Sclerae: sclerae normal Pupils: Equal, round and reactive pupils present Neck Neck: Yes no lymphadenopathy and Yes no JVD Thyroid: Thyroid normal Carotids: no bruits Resp Effort & Inspection: normal respiratory effort and not tachypneic Auscultation: no crackles, no rales, no rhonchi and no wheezes Cardio Rate: regular rate Rhythm: regular rhythm Heart sounds: no murmurs and normal S1 and S2 GI Palpation (GI): Soft to palpation, nontender, no hepatomegaly and no splenomegaly Auscultation: normal bowel sounds Skin General skin exam: no rashes or lesions noted and dry skin Neuro General: oriented to person, oriented to place and oriented to time Cranial nerves: Yes Equal, round and reactive pupils present Speech: No Abnormal speech present Gait exam (Neuro): Normal gait present Motor exam (neuro): no tremor noted Extrem Right upper extremity: full ROM Left upper extremity: full ROM Right lower extremity: full ROM; no edema Left lower extremity: full ROM; no edema Psych Mental Status: mental status grossly normal Speech and movement: Normal speech and movement present Affect: normal affect Attitude: cooperative Thought process: Normal thought process present Coding Level of Care Code Est Pt Level 4 (55393) Diagnoses Type 2 diabetes mellitus with hyperglycemia, without long-term current use of insulin E11.65 Diabetes mellitus complication status: with hyperglycemia Diabetes mellitus penitentiary insulin use: without marine oil terminal superintendent use Essential hypertension I10 Hypertension type: essential hypertension Gastroesophageal reflux disease without esophagitis K21.9 Esophagitis presence: without esophagitis Early satiety R68.81 Class 1 obesity E66.811 Mixed hyperlipidemia E78.2 Hyperlipidemia type: mixed hyperlipidemia Additional Codes ELIZA-7 Assessment Billing - ELIZA-7 Assessment Tool: ELIZA-7 Assessment 53412 ([id number]) PHQ-9 - 72025 - PHQ-9 Billing: Yes ([id number]) Assessment & Plan Assessment & Plan (1) DMII (diabetes mellitus, type 2): Code(s): E11.9 - Type 2 diabetes mellitus without complications Category: Medical Qualifiers: Diabetes mellitus complication status: with hyperglycemia Diabetes mellitus marine oil terminal superintendent insulin use: without penitentiary use Qualified Code(s): E11.65 - Type 2 diabetes mellitus with hyperglycemia Plan: Patient's diabetes well controlled with current dose of metformin. Will continue to work on lifestyle and dietary modifications. Goal A1c is to remain below 6.5 (2) HTN (hypertension): Comment: Stable Code(s): I10 - Essential (primary) hypertension Category: Medical Qualifiers: Hypertension type: essential hypertension Qualified Code(s): I10 - Essential (primary) hypertension Plan: Patient's blood pressure acceptable today in office. Will continue current dose of antihypertensive medication. Goal blood pressures to be below 140/90 (3) GERD (gastroesophageal reflux disease): Code(s): K21.9 - Gastro-esophageal reflux disease without esophagitis Category: Medical Qualifiers: Esophagitis presence: without esophagitis Qualified Code(s): K21.9 - Gastro-esophageal reflux disease without esophagitis Plan: Patient's signs and symptoms of early satiety and reflux concerning for gastric reflux. Will send in pantoprazole to use on an empty stomach in the morning to help reduce gastric PH. (4) Early satiety: Code(s): R68.81 - Early satiety Category: Medical Plan: As above patient is concerned about slow digestion, does mild problem with his sugar. Will send for gastric emptying study to evaluate for gastroparesis. (5) Class 1 obesity: Code(s): E66.811 - Obesity, class 1 Category: Medical Plan: Patient does understand his BMI is over 30 will continue working on better eating habits and being more physically active to reduce his weight. (6) Hyperlipidemia: Code(s): E78.5 - Hyperlipidemia, unspecified Category: Medical Qualifiers: Hyperlipidemia type: mixed hyperlipidemia Qualified Code(s): E78.2 - Mixed hyperlipidemia Plan: Patient's most recent lipid panel and much improved since starting atorvastatin. Continues to follow cardiology for hyperlipidemia as well. Goal LDL to be below 100 Orders: Orders Complete Blood Count no Diff Today E78.2 - Mixed hyperlipidemia H pylori Ag Stool Today K21.9 - Gastro-esophageal reflux disease without esophagitis NM gastric emptying study Today R68.81 - Early satiety Lipid Panel Today E78.2 - Mixed hyperlipidemia Comprehensive [place]. Panel Fast Today E78.2 - Mixed hyperlipidemia Medications: New pantoprazole 20 mg PO DAILY 30 tabs 1RF 30 days K21.9 - Gastro-esophageal reflux disease without esophagitis Patient Instructions: Goal: A1c to remain below 6.5, LDL to be below 100 :Barriers : Adherence to physical activity and healthy eating habits
--- OUTSIDE RECORDS SUMMARY | 2024-04-11 09:02 | XMS_ITS | Patient Health Record ---
Author Organization [facility] Address [address] [place] [address] Care Team Providers Care Manager Beverage Name Role Phone Rfaael Ghotra Primary Care Provider Unavailab En Vargas Unavailable [phone] ALLERGIES No Known Allergies RESULTS Component Value Reference Range Notes US abdomen complete Reviewed date:05/07/2023 03:51:23 PM Interpretation: Performing Lab: Notes/Report: [address] [address] Ultrasound Report Signed Patient: Leandro Landaverde MR#: [id number] 3 : 1970 Acct:[id number] Age/Sex: 53 / M ADM Date: 04/14/23 Loc: HO.US Attending Dr: En Villarreal MD Ordering Physician: En Villarreal Date of Service: 04/14/23 Procedure(s): US abdomen complete Accession Number(s): [id number] cc: Rafael Ghotra PA-C; En Villarreal EXAMINATION: [...] MD in OV> 04/17/23819 DD/ 9 TD/TT: Chemist Food: Pathology (Not yet reviewed by provider) Interpretation: Performing Lab:[facility], [address] [place] [id number] Notes/Report: Glucose, Whole Blood Reviewed date:06/14/2023 07:39:56 PM Interpretation: Performing Lab:[facility], [address] [place] [id number] Notes/Report: Glucose, Whole Blood 122 60-115 mg/dL METER # : [id number] REASON FOR REFERRAL No Information MEDICATIONS Medication [...] W/U Status Risk SNOMED Code Notes Problem Colon cancer screening (Z12.11) Active confirmed Colon can cer screening (249966913) Problem Personal history of colonic polyps (Z86.010) Active confirmed History of polyp of colon (situation) (168145083) Problem Diverticulosis of large intestine without perforation or abscess without bleeding (K57.30) Active confirmed Diverticul ar disease of colon (437496904) Problem Diverticulitis (K57.92) Active confirmed 595770696 Problem Abnormal CT scan, colon (R93.3) Active confirmed 601045750 Problem RUQ pain (R10.11) Active confirmed Righ t upper quadrant pain (297400252) Encounters Encounter Location Date Provider Diagnosis [facility] [place] [address] [place] [phone] 06/14/2023 En Villarreal Encounter for scre ening [...] Insured Coverage Start Date Coverage End Date [facility] [address] [address] [place], [place] [id number] LEANDRO LANDAVERDE Self - patient is the insured MEDICAL (GENERAL) HISTORY Medical History History ICD Code Hypertension Denies AK,DM,CVA,Lung disease,renal dise ase Sigmoid diverticulitis in 08/2016---had a CT in ER Back pain Screening colonoscopy in 03/17 018 with diverticulosis and 1 small cecal tubular adenoma removed Hyperlipidemia Surgical History Surgery Date(Month/Year)
--- OUTSIDE RECORDS SUMMARY | 2024-04-11 09:03 | XMS_ITS ---
Author Organization [facility] Address [address] [place] [address] Care Team Providers Care Nitrocellulose Operator Name Role Phone Rafael Ghotra Primary Care Provider Unavailab En Vargas Unavailable [phone] REASON FOR VISIT screening colon PROBLEMS Problem Type ICD Code Onset Dates Problem Status W/U Status Risk SNOMED Code Notes Problem Diverticulosis of large intestine without perforation or abscess without bleeding (K57.30) Active confirmed Diverticul ar disease of colon (239889351) Encounters Encounter Location Date Provider Diagnosis [facility] [place] Out[place] [address], [place] [phone] 06/14/2023 En Villarreal Encounter for scre ening [...]
--- OUTSIDE RECORDS SUMMARY | 2024-04-11 09:03 | XMS_ITS ---
Author Organization [facility] Address [address] [place] [address] Care Team Providers Care Smelter Operator Name Role Phone Rafael Ghotra Primary Care Provider En Charles Unavailable [phone] ALLERGIES No Known Allergies REASON FOR VISIT [...] (R10.11) Active confirmed Right upper quadrant pain (458348634) Problem Personal history of colonic polyps (Z86.010) Active confirmed History of polyp of colon (situation) (363153068) Problem Colon cancer screening (Z12.11) Active confirmed Colon cancer screening (480638115) VITAL SIGNS Temperature 98.4 degrees Fahrenheit 03/28/19 24 Blood pressure systolic 00 mm Hg 03/28/19 24 Blood pressure diastolic 00 mm Hg 024 Height 71 in 03/28/2023 Weight 226 lbs 03/28/2023 BMI 31.52 kg/m2 03/28/2023 Encounters Encounter Location Date Provider Diagnosis [facility] [address] [place] [address] 03/28/2023 En Villarreal RUQ pain R10.11 ; [...]
--- OUTSIDE RECORDS SUMMARY | 2024-04-11 09:03 | XMS_ITS ---
Author Organization [facility] Address [address] [place] [address] Care Team Providers Care Shoulder Puncher Name Role Phone Rafael Ghotra Primary Care Provider UnavailEn Mclaughlin [phone] REASON FOR VISIT please send colon prep [...] Active Encounters Encounter Location Date Provider [facility] [address] [address] 03/28/2023 En Villarreal PLAN OF TREATMENT Medication [...]
== END 2024-04-11 09:12 | disposition home or self-care (01) ==
PROVIDERS: PCP Physician Assistant; Visit Provider Physician Assistant
DX: E11.65 Type 2 diabetes mellitus with hyperglycemia (principal); I10 Essential (primary) hypertension; E66.811 Obesity, class 1; Z68.31 Body mass index [BMI] 31.0-31.9, adult; K21.9 Gastro-esophageal reflux disease without esophagitis; R68.81 Early satiety; E78.2 Mixed hyperlipidemia

== ENCOUNTER → 2024-04-11 08:35 | Outpatient (BNVA) | payer OTHER, SELFPAY | PROVIDERS: PCP Physician Assistant; Visit Provider Physician Assistant | DX: E11.65 Type 2 diabetes mellitus with hyperglycemia (principal); I10 Essential (primary) hypertension; K21.9 Gastro-esophageal reflux disease without esophagitis; R68.81 Early satiety; E66.811 Obesity, class 1; E78.2 Mixed hyperlipidemia | CPT/HCPCS: 96127; 99212 ==

== ENCOUNTER 2024-04-20 08:02 | Outpatient (REF) | payer OTHER, SELFPAY ==
--- OUTSIDE RECORDS SUMMARY | 2024-04-20 08:04 | XMS_ITS ---
Author Organization [facility] Address [address] [place] [address] Care Team Providers Care Compressed Yeast Supervisor Name Role Phone aRfael Ghotra Primary Care Provider UnavailEn Mclaughlin Unavailable [phone] Allergies No Known Allergies REASON FOR VISIT Patient presents today for a colon screening Medications Medication SIG (Take, Route, Frequency, Duration) Notes [...] as needed Orally every 8 hrs Active Social History Tobacco Use: Social History Observation Description Date Details (start date - stop date) Never Smoker NA - NA Tobacco Use/Smoking Question Answer Notes Patient is [...] Never (0 point) Points 1 Interpretation Negative Section Notes: Nonsmoker; very occasional drink From the DR in 2011 Problems Problem Type SNOMED Code ICD Code Onset Dates Problem Status W/U Status Risk Notes Problem Right upper quadrant pain (946086368) RUQ pain (R10.11) Active confirmed Problem History of polyp of colon (situation) (336124178) Personal history of colonic polyps (Z86.010) Active confirmed Problem Colon cancer screening (056142155) Colon cancer screening (Z12.11) Active confirmed Vital Signs Temperature 98.4 degrees Fahrenheit 03/28/19 24 Blood pressure systolic 00 mm Hg 03/28/19 24 Blood pressure diastolic 00 mm Hg 024 Height 71 in 03/28/2023 Weight 226 lbs 03/28/2023 BMI 31.52 kg/m2 03/28/2023 Encounters Encounter Location Date Provider Diagnosis [facility] [address] [place] [address] 03/28/2023 En Villarreal RUQ pain R10.11 ; Personal history of colonic polyps Z86.010 and Colon cancer screening Z12.11 Assessments Encounter Date Diagnosis (ICD Code) Assessment Notes Treatment Notes Treatment Clinical Notes Section Notes 03/28/2023 RUQ pain (ICD-10 - R10.11) Overall, Leandro appears well. I did recommend a followup colonoscopy for further screening purposes given his history of a tubular adenoma removed 6 years ago. We did review the rationale for this in regard to colon cancer prevention. Full consent was obtained for this, including risks of bleeding and perforation. The procedure will be done with monitored anesthesia care. I also recommended an abdominal ultrasound to rule out gallstones as a cause of his right upper quadrant discomfort. His symptoms may be reflective of some intestinal spasm but I thought it would be important to exclude symptomatic gallstones. I did review this with him. Leandro is comfortable with this plan. Thank you again for allowing me to participate in Leandro's care. I shall continue to keep you advised of his progress. 03/28/2023 Personal history of colonic polyps (ICD-10 - Z86.010) Overall, Leandro appears well. I did recommend a followup colonoscopy for further screening purposes given his history of a tubular adenoma removed 6 years ago. We did review the rationale for this in regard to colon cancer prevention. Full consent was obtained for this, including risks of bleeding and perforation. The procedure will be done with monitored anesthesia care. I also recommended an abdominal ultrasound to rule out gallstones as a cause of his right upper quadrant discomfort. His symptoms may be reflective of some intestinal spasm but I thought it would be important to exclude symptomatic gallstones. I did review this with him. Leandro is comfortable with this plan. Thank you again for allowing me to participate in Leandro's care. I shall continue to keep you advised of his progress. 03/28/2023 Colon cancer screening (ICD-10 - Z12.11) Overall, Leandro appears well. I did recommend a followup colonoscopy for further screening purposes given his history of a tubular adenoma removed 6 years ago. We did review the rationale for this in regard to colon cancer prevention. Full consent was obtained for this, including risks of bleeding and perforation. The procedure will be done with monitored anesthesia care. I also recommended an abdominal ultrasound to rule out gallstones as a cause of his right upper quadrant discomfort. His symptoms may be reflective of some intestinal spasm but I thought it would be important to exclude symptomatic gallstones. I did review this with him. Leandro is comfortable with this plan. Thank you again for allowing me to participate in Leandro's care. I shall continue to keep you advised of his progress. Plan Of Treatment Pending Test Test Name Order Date US ABD 03/28/2023 Future Test Test Name Order Date COLONOSCOPY 03/28/2023 Next Appt Details Follow Up: prn, Reason: Progress Notes * DEXTER LANDAVERDEOB:1970 (53 yo M)Acc No.[id number]:03/28/2023 Progress Notes Patient:?LEANDRO LANDAVERDE Provider:?En Villarreal MD :1970???Age:52 Y???Sex:Male Myke e:03/28/2023 Address: [address] , [place], [id number] Pcp:Rafael Ghotra Subjective: * Chief Complaints: * ???Patient presents today fo r a colon screening * HPI: ???incontinence:? I saw Leandro in consultation today in regard to his personal history of a tubular adenoma of the colon, need for colorectal cancer screening, and occasional right upper quadrant discomfort. ?I last saw Leandro in March of 2017, at which time he underwent a colonoscopy with removal of a small tubular adenoma. That exam was done primarily due to an episode of diverticulitis in 2017. Since that colonoscopy he reports he has not had any further episodes of diverticulitis nor left-sided abdominal pain. However, he does have occasional right upper quadrant discomfort that can last for about an hour or so. This will occasionally be exacerbated by eating. He denies any fevers, jaundice, no vomiting. He otherwise eats well and denies any significant heartburn or dysphagia. His bowel movements and regular and without any signs of bleeding. There is no definitive family history of colon cancer. ?Laboratories in November 2022 revealed a normal CBC, normal chemistries and renal function, and a normal liver profile. * ROS:?General/Constitutional:?Change in appetite?denies.?Chills?denies.?Fatigue?denies.?Ophthalmologic:?Comments?all negative.?ENT:?Comments?all negative.?Respiratory:?hemoptysis?denies.?Cough?denies.?Cardiovascular:?Chest pain?denies.?Orthopnea?denies.?Gastrointestinal:?Comments?See HPI for details.?Genitourinary:?Hematuria?denies.?Dysuria?denies.?Musculoskeletal:?Painful joints?Back pain.?Weakness?denies.?Skin:?Itching?denies.?Rash?denies.?Neurologic:?Headache?denies.?Seizures?denies.?Psychiatric:?Comments?all negative.? * Medical History:? * Surgical History:?No Surgica l History documented. * Hospitalization/Major Diagno stic Procedure:?No Hospitalization History. * Family History:?Father: brando [place], diagnosed with HTN (hypertension), Diabetes.?Mother: alive, diagnosed with Diabetes, HTN (hypertension).? No known history of colon cancer. * Social History:?Tobacco Use:?Tobacco Use/Smoking?Patient is a?nonsmoker.?Drugs/Alcohol:?Alcohol Screen?Did you have a drink containing alcohol in the past year??Yes,?How often did you have a drink containing alcohol in the past year??Monthly or less (1 point), How many drinks did you have on a typical day when you were drinking in the past year??1 or 2 drinks (0 point),?How often did you have 6 or more drinks on one occasion in the past year??Never (0 point),?Points?1,?Interpretation?Negative.?Miscellaneous:?Marital status: . 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 ???Nonsmoker; very occasional drink From the DR in 2011. * Medications:?TakingIbuprofen 800 MG Tablet 1 tablet with food or milk as needed Orally every 8 hrsBenzonatate 200 MG Capsule 1 capsule Orally Three times a dayLisinopril-hydroCHLOROthiazide 10-12.5 MG Tablet TAKE 1 TABLET BY MOUTH EVERY DAY Oral amLODIPine Besylate 5 MG Tablet Oral clonazePAM 1 MG Tablet Oral Atorvastatin Calcium 40 MG Tablet Oral hydrOXYzine HCl 25 MG Tablet TAKE 1 TABLET BY MOUTH EVERYDAY AT BEDTIME Oral Taking Ibuprofen 800 MG Tablet 1 tablet with food or milk as needed Orally every 8 hrsTaking Benzonatate 200 MG Capsule 1 capsule Orally Three times a dayTaking Lisinopril-hydroCHLOROthiazide 10-12.5 MG Tablet TAKE 1 TABLET BY MOUTH EVERY DAY Oral Taking amLODIPine Besylate 5 MG Tablet Oral Taking clonazePAM 1 MG Tablet Oral Taking Atorvastatin Calcium 40 MG Tablet Oral Taking hydrOXYzine HCl 25 MG Tablet TAKE 1 TABLET BY MOUTH EVERYDAY AT BEDTIME Oral DiscontinuedtraZODone HCl 50 MG Tablet TAKE 1 TO 2 TABLETS BY MOUTH NEEDED AT BEDTIME FOR INSOMNIA Oral Cyclobenzaprine HCl 10 MG Tablet TAKE 1 TABLET BY MOUTH 3 TIMES A DAY Oral traMADol HCl 50 MG Tablet (Schedule IV Drug) TAKE 1-2 TABLETS BY MOUTH EVERY 12 HOURS NEEDED FOR PAIN Oral Medication List reviewed and reconciled with the patientDiscontinued traZODone HCl 50 MG Tablet TAKE 1 TO 2 TABLETS BY MOUTH NEEDED AT BEDTIME FOR INSOMNIA Oral Discontinued Cyclobenzaprine HCl 10 MG Tablet TAKE 1 TABLET BY MOUTH 3 TIMES A DAY Oral Discontinued traMADol HCl 50 MG Tablet (Schedule IV Drug) TAKE 1-2 TABLETS BY MOUTH EVERY 12 HOURS NEEDED FOR PAIN Oral Medication List reviewed and reconciled with the patient * Allergies:?N.K.D.A.yes[Aller gies Verified] Objective: * Vitals:?Wt: 226 lbs, Ht: 71 in, BMI:31.52 Index, BP: 00/00 mm Hg, Temp: 98.4. * Examination: ???General Examination: ?GENERAL APPEARANCE:?pleasant, well nourished, well developed, in no acute distress.?EYES:?sclera non-icteric.?ORAL CAVITY:?mucosa moist.?NECK/THYROID:?no cervical lymphadenopathy, neck supple.?SKIN:?nonjaundiced, no spider angiomata.?HEART:?S1, S2 normal.?LUNGS:?clear to auscultation bilaterally.?ABDOMEN:?normal bowel sounds, no guarding or rigidity, no guarding or rigidity, no masses palpable, soft, nontender, nondistended.?EXTREMITIES:?no edema.?NEUROLOGIC:?alert and oriented.? Assessment: * Assessment: 1.?RUQ pain - R10.11 (Primar y)?2.?Personal history of colonic polyps - Z86.010?3.?Colon cancer screening - Z12.11? Overall, Leandro appears well. I did recommend a followup colonoscopy for further screening purposes given his history of a tubular adenoma removed 6 years ago. We did review the rationale for this in regard to colon cancer prevention. Full consent was obtained for this, including risks of bleeding and perforation. The procedure will be done with monitored anesthesia care. I also recommended an abdominal ultrasound to rule out gallstones as a cause of his right upper quadrant discomfort. His symptoms may be reflective of some intestinal spasm but I thought it would be important to exclude symptomatic gallstones. I did review this with him. Leandro is comfortable with this plan. Thank you again for allowing me to participate in Leandro's care. I shall continue to keep you advised of his progress. Plan: * Treatment: * 2.?Personal history of colonic polyps?Procedure: COLONOSCOPY (Ordered for 03/28/2023)* with MAC Scheduled on 06-14-19 at noon 3.?Colon cancer screening?Procedure: COLONOSCOPY (Ordered for 03/28/2023)* with MAC Scheduled on 06-14-19 at noon * Procedure Codes:?3017F COLOR ECTAL CA SCREEN DOC [id number] TOBACCO NON-IBPTV3153 BP SCR NOT PRFRM REC REASON NOS * Preventive Medicine:? ??Counseling:?Care goal follow-up plan:?Above Normal BMI Follow-up?Giving encouragement to exercise,?BMI management provided?Yes.? * Follow Up:?prn * * Sign off status: Completed true * Provider:?En Villarreal MD Date:? 024 Generated for Chemo bowling/Yarelis/eTransmitting on:?04/20/2024 08:04 AM EST History and Physical Notes * HPI (History of Present Illness) Category Sub-Category Detail Notes Category Not es incontinence I saw Leandro in consultation today in regard to his personal history of a tubular adenoma of the colon, need for colorectal cancer screening, and occasional right upper quadrant discomfort. I last saw Leandro in March of 2017, at which time he underwent a colonoscopy with removal of a small tubular adenoma. That exam was done primarily due to an episode of diverticulitis in 2016. Since that colonoscopy he reports he has not had any further episodes of diverticulitis nor left-sided abdominal pain. However, he does have occasional right upper quadrant discomfort that can last for about an hour or so. This will occasionally be exacerbated by eating. He denies any fevers, jaundice, no vomiting. He otherwise eats well and denies any significant heartburn or dysphagia. His bowel movements and regular and without any signs of bleeding. There is no definitive family history of colon cancer. Laboratories in November 2022 revealed a normal CBC, normal chemistries and renal function, and a normal liver profile. Examination Category Sub-Category Detail Notes Category Not es General Examination GENERAL APPEARANCE: pleasant , well [...]
--- OUTSIDE RECORDS SUMMARY | 2024-04-20 08:04 | XMS_ITS ---
Author Organization [facility] Address [address] [place] [address] Care Team Providers Care Erector Operator Name Role Phone Rafael Ghotra Primary Care Provider Unavailab En Vargas Unavailable [phone] REASON FOR VISIT screening colon Problems Problem Type SNOMED Code ICD Code Onset Dates Problem Status W/U Status Risk Notes Problem Diverticular disease of colon (943607642) Diverticulosis of large intestine without perforation or abscess without bleeding (K57.30) Active confirmed Encounters Encounter Location Date Provider Diagnosis [facility] Outpatient [address] [place], [place] [id number] 06/14/2023 En Villarreal Encounter for scre ening [...] hemorrhoids (ICD-10 - K64.8) Plan Of Treatment No Information Progress Notes * DEXTER LANDAVERDEOB:1970 (54 yo M)Acc No.[id number]:06/14/2023 COLON WITH MAC Patient:?KANDACE LANDAVERDE Provider:?En Villarreal MD :1970???Age:53 Y???Sex:Male Myke e:06/14/2023 Address:[address] [place] [address], [id number] Pcp:Rafael Ghotra Subjective: * Chief Complaints: * ???1. Screening colon. * Medical History:? Objective: * Vitals:? Assessment: * Assessment: 1.?Encounter for screening c olonoscopy - Z12.11 (Primary)???2.?Colon polyps - K63.5???3.?Diverticulosis of large intestine without perforation or abscess without bleeding - K57.30???4.?Other hemorrhoids - K64.8??? Plan: * Treatment: * Procedure Codes:?28012 COLON OSCOPY AND BIOPSY, Modifiers: 33 * * The named appointment provid er may or may not be the originator of this progress note, and it is not deemed complete until electronically signed by the appointment provider. Sign off status: Pending * Provider:?En Villarreal MD Date:? 024 Generated for Chemo bowling/Yarelis/eTransmitting on:?04/20/2024 08:04 AM EST
--- OUTSIDE RECORDS SUMMARY | 2024-04-20 08:04 | XMS_ITS | Patient Health Record ---
Author Organization [facility] Address [address] [place] [address] Care Team Providers Care Sewer And Drain Technician Name Role Phone Rafael Ghotra Primary Care Provider Unavailab En Vargas Unavailable [phone] Allergies No Known Allergies Results Component Value Reference Range Notes Glucose, Whole Blood Reviewed date:06/14/2023 07:39:56 PM Interpretation: Performing Lab:[facility], [address] [place] [phone] Notes/Report: Glucose, Whole Blood 122 60-115 mg/dL METER # : [id number] Pathology (Not yet reviewed by provider) Interpretation: Performing Lab:[facility], [address] [place] [phone] Notes/Report: ----- Name: Leandro Landaverde Age/Sex: 53/M : 1970 Unit#: [id number] Attend Dr: En Villarreal Re06/14/23 Status : [facility] Location: [facility] Disch: ----- SPEC : [id number] RECD : 06/14/23 STATUS: KURT KINNEY NUM: [id number] TICO: 06/14/231117 [facility] DR: En Villarreal ENTERED: 06/14/23- 21 SP TYPE: Surgical OTHR DR: Rafael Ghotra PA-C ORDERED: HE Stain/6, Gross Micro L4/2 Diagnosis A. Colon, transverse , polypectomy: Clinically polypoid colonic mucosa within normal limits. B. Cecum, polypectom y: Fragments of tubulovillous adenoma; negative for high-grade dysplasia or carcinoma. Clinical History Pre-Op Dx: Screening Post-Op Dx: Colon polyps Microscopic Description A, B. Microscopic sections reviewed. Material Received A. Transverse colon polyp B. Cecal polyp Gross Description Received in 2 parts. Part A: Received in formalin labeled ?transverse colon polyp? with scant mucus is a 0.25 cm messina-pink irregular t issue fragment, submitted in toto in a cassette labeled A. Part B: Received in formalin labeled ?cecal polyp? are 6 rubbery, messina and messina-pink irregular tissue fragments ranging from minute to 0.25 cm, submitted in toto in a cassette labeled B. CEDS Copies To: Rafael Ghotra PA-C [address] [place], [place] [address] [address] [place] [address] CONTINUED ON NEXT PAGE ----- Name: Leandro Landaverde Age/Sex: 53/M : 1970 Unit#: [id number] Attend Dr: En Villarreal Re06/14/23 Status : [facility] Location: [place] Disch: ----- SPEC : [id number] RECD : 06/14/23 STATUS: KURT KINNEY NUM: [id number] TICO: 06/14/23-[address] [facility] [address]: En Villarreal ENTERED: 06/14/23-02 02 SP TYPE: Surgical OTHR DR: Rafael Ghotra PA-C ORDERED: JEFF[place] Stain/6, Emerald Hensley L4/2 Copies To: (Continued) En Villarreal [address] [place] [address] [address] [place] [address] ----- Signed (signature on file) Slade Woo MD 06/16/23 0811 ----- END OF REPORT Reason For Referral No Information Medications Medication SIG (Take, Route, Frequency, Duration) [...] occasional drink From the DR in 2011 Nonsmoker; very occasional drink From the DR in 2011 Problems Problem Type SNOMED Code ICD Code Onset Dates Problem Status W/U Status Risk Notes Problem Colon cancer screening (843778932) Colon cancer screening (Z12.11) Active confirmed Problem History of polyp of colon (situation) (525676049) Personal history of colonic polyps (Z86.010) Active confirmed Problem Diverticular disease of colon (244330113) Diverticulosis of large intestine without perforation or abscess without bleeding (K57.30) Active confirmed Problem 584666181 Diverticulitis (K57.92) Active confirmed Problem 127592776 Abnormal CT scan , colon (R93.3) Active confirmed Problem Right upper quadrant pain (666358840) RUQ pain (R10.11) Active confirmed Encounters Encounter Location Date Provider Diagnosis [facility] Outpatient [address] [place], [place] [id number] 06/14/2023 En Villarreal Encounter for scre ening [...] hemorrhoids (ICD-10 - K64.8) Plan Of Treatment Pending Test Test Name Order Date US ABD 03/28/2023 Pathology 06/14/2023 Future Test Test Name Order Date COLONOSCOPY 12/29/2016 COLONOSCOPY 03/28/2023 Insurance Providers Payer Name Payer Address Payer Phone Subscriber Number Group Number Insured Name Patient Relationship to Insured Coverage Start Date Coverage End Date [facility] [address] [address] [place], [place] [id number] LEANDRO LANDAVERDE Self - patient is the insured Medical (General) History Medical History History ICD Code Hypertension Denies DC,DM,CVA,Lung disease,renal dise ase Sigmoid diverticulitis in 08/2016---had a CT in ER Back pain Screening colonoscopy in 03/17 018 with diverticulosis and 1 small cecal tubular adenoma removed Hyperlipidemia Surgical History Surgery Date(Month/Year)
--- OUTSIDE RECORDS SUMMARY | 2024-04-20 08:04 | XMS_ITS ---
Author Organization [facility] Address [address] [place] [address] Care Team Providers Care Pillowcase Cutter Name Role Phone Rafael Ghotra Primary Care Provider UnavailEn Mclaughlin [phone] REASON FOR VISIT please send colon prep to pharmacy Medications Medication SIG (Take, Route, Frequency, Duration) [...] Location Date Provider Diagnosis [facility] [address] [address] 03/28/2023 En Villarreal Plan Of Treatment Medication Medication Name Sig Start Date Stop Date Notes MiraLax (colon prep) 17 GM/SCOOP 1 238GM bottle mixed with Gatorade or Crystal Light Orally begin at 5:00 p.m. the day before the procedure for 1 day 03/28/2023 Dulcolax (colon prep) 5 MG take at 3:00 p.m and 7:00p.m. Orally two tablets twice a day for one day for 1 day 03/28/2023 Progress Notes * DEXTER LANDAVERDEOB:1970 (52 yo M)Acc No.[id number]:03/28/2023 Patient:KANDACE BABB :1970???Age:52 Y???Sex:Male Address:[address], [place], [address] * Refills? Start Dulcolax (colon prep) Tablet Delayed Release, 5 MG, Orally, 4, take at 3:00 p.m and 7:00p.m., two tablets twice a day for one day, 1 day, Refills=0 Start MiraLax (colon prep) Powder, 17 GM/SCOOP, Orally, 1, 1 238GM bottle mixed with Gatorade or Crystal Light, begin at 5:00 p.m. the day before the procedure, 1 day, Refills=0 * true * Date:? Generated for Chemo bowling/Yarelis/Christiitting on:?04/20/2024 08:04 AM EST
[2024-04-20 10:03] LABS: Hematocrit 42.3 % (42.0-52.0); Red Blood Count 5.01 X10*6/uL (4.60-5.80); White Blood Count 11.1 X10*3/uL (4.8-10.8)
[2024-04-20 10:04] LABS: Mean Corpuscular HGB Conc 33.1 g/dl (31.0-36.0); Mean Corpuscular Hemoglobin 27.9 pg (27.0-33.0); Mean Corpuscular Volume 84.4 fL (80.0-98.0); Mean Platelet Volume 9.1 fL (9.4-12.4); Platelet Count 308 X10*3/uL (160-400); Red Cell Distribution Width 13.1 % (11.0-16.0)
[2024-04-20 10:31] LABS: Alanine Aminotransferase 57 U/L (0-40); Albumin Level 4.4 g/dL (3.5-5.0); Alkaline Phosphatase 73 U/L (39-117); Anion Gap 13 (12-20); Aspartate Amino Transferase 29 U/L (5-37); Bilirubin Total 0.4 mg/dL (0.0-1.0); Blood Urea Nitrogen 12 mg/dL (9-16); Calcium 9.1 mg/dL (8.4-10.2); Carbon Dioxide 26 mmol/L (22-29); Chloride 103 mmol/L (96-108); Cholesterol 81 mg/dL (<200); Estimated Glomerular Filt Rate > 60; Glucose Fasting 108 mg/dL (60-99); HDL Cholesterol 32 mg/dL (>40); LDL Cholesterol Calculated 39 mg/dL (<100); Potassium 3.9 mmol/L (3.3-5.1); Sodium 138 mmol/L (135-145); Total Protein 8.3 g/dL (6.5-8.0); Triglycerides 54 mg/dL (<150)
== END 2024-04-20 08:03 | disposition home or self-care (01) ==
LOC: HO.LAB 08:02
PROVIDERS: PCP Physician Assistant; Visit Provider Physician Assistant
DX: E78.2 Mixed hyperlipidemia (principal)
CPT/HCPCS: 36415; 80053; 80061; 85027

== ENCOUNTER 2024-04-21 | Outpatient (REF) | payer OTHER, SELFPAY ==
--- OUTSIDE RECORDS SUMMARY | 2024-04-22 07:56 | XMS_ITS ---
Author Organization [facility] Address [address] [place] [address] Care Team Providers Care Cardiac Exercise Specialist Name Role Phone Rafael Ghotra Primary Care Provider UnavailEn Mclaughlin [phone] REASON FOR VISIT please send colon prep [...] Active Encounters Encounter Location Date Provider Diagnosis [facility] [address] [address] 03/28/2023 En Villarreal Plan Of Treatment Medication [...] Notes * DEXTER LANDAVERDEOB:1970 (52 yo M)Acc No.[id number]:03/28/2023 Patient:KANDACE BABB :1970???Age:52 Y???Sex:Male Address:[address], [place], [address] * Refills? Start Dulcolax (colon prep) Tablet [...] true * Date:? Generated for Chemo bowling/Yarelis/Christiitting on:?04/22/2024 07:56 AM EDT
--- OUTSIDE RECORDS SUMMARY | 2024-04-22 07:56 | XMS_ITS | Patient Health Record ---
Author Organization [facility] Address [address] [place] [address] Care Team Providers Care Oracle R12 Developer Name Role Phone Rafael Ghotra Primary Care Provider Unavailab En Vargas Unavailable [phone] Allergies No Known Allergies Results Component Value Reference Range Notes Glucose, Whole Blood Reviewed date:06/14/2023 07:39:56 PM Interpretation: Performing Lab:[facility], [address] [place] [phone] Notes/Report: Glucose, Whole Blood 122 60-115 mg/dL METER # : [id number] Pathology (Not yet reviewed by provider) Interpretation: Performing Lab:[facility], [address] [place] [phone] Notes/Report: ----- Name: Leandro Landaverde Age/Sex: 53/M : 1970 Unit#: [id number] Attend Dr: En Villarreal Re06/14/23 Status : [facility] Location: [facility] Disch: ----- SPEC : [id number] RECD : 06/14/23 STATUS: KURT KINNEY NUM: [id number] TICO: 06/14/231117 [facility] DR: En Villarreal ENTERED: 06/14/23- 21 [...] B. CEDS Copies To: Rafael Ghotra PA-C [address] [place], [place] [address]Estiven [address] [place] [address] CONTINUED ON NEXT PAGE ----- Name: Leandro Landaverde Age/Sex: 53/M : 1970 Unit#: [id number] Attend Dr: En Villarreal Re06/14/23 Status : [facility] Location: [place] Disch: ----- SPEC : [id number] RECD : 06/14/23 STATUS: KURT KINNEY NUM: [id number] TICO: 06/14/23-1116 [facility] [address]: En Villarreal ENTERED: 06/14/23-02 02 SP TYPE: Surgical OTHR DR: Rafael Ghotra PA-C ORDERED: JEFFERSON Stain/6, Emerald Hensley L4/2 Copies To: (Continued) En Villarreal [address] [place] [address] [address] [place] [address] ----- Signed (signature on file) Slade Woo [...] Status Risk Notes Problem Colon cancer screening (775621082) Colon cancer screening (Z12.11) Active confirmed Problem History of polyp of colon (situation) (877498215) Personal history of colonic polyps (Z86.010) Active confirmed Problem Diverticular disease of colon (198353609) Diverticulosis of large intestine without perforation or abscess without bleeding (K57.30) Active confirmed Problem 964651760 Diverticulitis (K57.92) Active confirmed Problem 940471623 Abnormal CT scan , colon (R93.3) Active confirmed Problem Right upper quadrant pain (557359529) RUQ pain (R10.11) Active confirmed Encounters Encounter Location Date Provider Diagnosis [facility] Outpatient [address] [place], [place] [phone] 06/14/2023 En Villarreal Encounter for scre ening [...] Insured Coverage Start Date Coverage End Date [facility] [address] [address] [place], [place] [id number] LEANDRO LANDAVERDE Self - patient is the insured Medical (General) History Medical History History ICD Code Hypertension Denies [place],DM,CVA,Lung disease,renal dise ase Sigmoid diverticulitis in 08/2016---had a CT in ER Back pain Screening colonoscopy in 03/17 018 with diverticulosis and 1 small cecal tubular adenoma removed Hyperlipidemia Surgical History Surgery Date(Month/Year)
--- OUTSIDE RECORDS SUMMARY | 2024-04-22 07:56 | XMS_ITS ---
Author Organization [facility] Address [address] [place] [address] Care Team Providers Care Senior Power Plant Operator Name Role Phone Rafael Ghotra Primary Care Provider Unavailab En Vargas Unavailable [phone] REASON FOR VISIT screening colon Problems Problem Type SNOMED Code ICD Code Onset Dates Problem Status W/U Status Risk Notes Problem Diverticular disease of colon (919461617) Diverticulosis of large intestine without perforation or abscess without bleeding (K57.30) Active confirmed Encounters Encounter Location Date Provider Diagnosis [facility] Outpatient [address] [place], [place] [phone] 06/14/2023 En Villarreal Encounter for scre ening [...] Notes * DEXTER LANDAVERDEOB:1970 (54 yo M)Acc No.[id number]:06/14/2023 COLON WITH MAC Patient:?KANDACE LANDAVERDE Provider:?En Villarreal MD :1970???Age:53 Y???Sex:Male Myke e:06/14/2023 Address:[address] [place] [address], [place], [id number] Pcp:Rafael Ghotra Subjective: * Chief Complaints: * ???1. Screening colon. * Medical History:? Objective: * Vitals:? Assessment: * Assessment: 1.?Encounter for screening c olonoscopy - Z12.11 (Primary)???2.?Colon polyps - K63.5???3.?Diverticulosis of large intestine without perforation or abscess without bleeding - K57.30???4.?Other hemorrhoids - K64.8??? Plan: * Treatment: * Procedure Codes:?79004 COLON OSCOPY AND BIOPSY, Modifiers: 33 * * The named appointment provid er may or may not be the originator of this progress note, and it is not deemed complete until electronically signed by the appointment provider. Sign off status: Pending * Provider:?En Villarreal MD Date:? 024 Generated for Chemo bowling/Yarelis/eTransmitting on:?04/22/2024 07:56 AM EDT
--- OUTSIDE RECORDS SUMMARY | 2024-04-22 07:56 | XMS_ITS ---
Author Organization [facility] Address [address] [place] [address] Care Team Providers Care Deck Mate Name Role Phone Rafael Ghotra Primary Care Provider UnavailEn Mclaughlin Unavailable [phone] Allergies No Known Allergies REASON FOR VISIT [...] Risk Notes Problem Right upper quadrant pain (320047852) RUQ pain (R10.11) Active confirmed Problem History of polyp of colon (situation) (198746259) Personal history of colonic polyps (Z86.010) Active confirmed Problem Colon cancer screening (058232911) Colon cancer screening (Z12.11) Active confirmed Vital Signs Temperature 98.4 degrees Fahrenheit 03/28/19 24 Blood pressure systolic 00 mm Hg 03/28/19 24 Blood pressure diastolic 00 mm Hg 024 Height 71 in 03/28/2023 Weight 226 lbs 03/28/2023 BMI 31.52 kg/m2 03/28/2023 Encounters Encounter Location Date Provider Diagnosis [facility] [address] [place] [address] 03/28/2023 En Villarreal RUQ pain R10.11 ; [...] Notes * DEXTER LANDAVERDEOB:1970 (53 yo M)Acc No.[id number]:03/28/2023 Progress Notes Patient:?LEANDRO LANDAVERDE Provider:?En Villarreal MD :1970???Age:52 Y???Sex:Male Myke e:03/28/2023 Address: [address] , [place], [place] Pcp:Rafael Ghotra Subjective: * Chief Complaints: * [...] past year??Never (0 point),?Points?1,?Interpretation?Negative.?Miscellaneous:?Marital status: . 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 ???Nonsmoker; very occasional drink From the [...] Procedure Codes:?3017F COLOR ECTAL CA SCREEN DOC [id number] TOBACCO NON-NQOHE6453 BP SCR NOT PRFRM REC REASON NOS * Preventive Medicine:? ??Counseling:?Care goal follow-up plan:?Above Normal BMI Follow-up?Giving encouragement to exercise,?BMI management provided?Yes.? * Follow Up:?prn * * Sign off status: Completed true * Provider:?En Villarreal MD Date:? 024 Generated for Chemo bowling/Yarelis/eTransmitting on:?04/22/2024 07:56 AM EDT History and Physical Notes * HPI (History [...]
== END 2024-04-21 00:01 | disposition home or self-care (01) ==
LOC: HO.LNP
PROVIDERS: Visit Provider Physician Assistant
DX: K21.9 Gastro-esophageal reflux disease without esophagitis (principal)
CPT/HCPCS: 87338

== ENCOUNTER → 2024-05-14 08:10 | Outpatient (REF) | payer OTHER, SELFPAY ==
--- NOTE | ~2024-05-14 | NM_ITS ---
EXAMINATION: UT RADIONUCLIDE SOLID FOOD GASTRIC EMPTYING 4-HOUR STUDY CLINICAL INFORMATION: R68.81 - Early satiety COMPARISON: None TECHNIQUE: A standard meal consisting of 4 oz of Egg Beaters brand tagged with 1.0 mCi Tc-99m Sulfur Colloid, 6 oz water and 1 slice of toast with jelly was administered orally to the patient. Images were obtained using a dual head gamma camera in the anterior and posterior projections over of the stomach immediately post ingestion and at hourly intervals up to 4 hours post ingestion. The anterior and posterior counts at each time interval were averaged using the geometric mean and expressed as percentage of the immediate post ingestion counts. FINDINGS: There is good visualization of activity in the stomach immediately post ingestion. As the study progresses, there is clearance of activity from the stomach and visualization of progressively increasing small bowel activity. Retention in the stomach at each time interval was: 1 hour 89% (normal 37%-90%) 2 hours 81% (normal 30%-60%) 3 hours 73% 4 hours 37% (normal 0%-10%) UT/UT gastric emptying study IMPRESSION: Mild to moderate delayed gastric emptying. For solid meal, rapid gastric emptying is less than 30% at 60 minutes. Delayed gastric emptying criteria is more than 60% remaining at 120 minutes or more than 10% at 240 minutes. The 4-hour value is the best discriminator of a normal or abnormal result). Gastric emptying study grading per JNMT Consensus Recommendations in 2008 (https://tech.snmjournals.org/content/36/1/44) Grade 1 (mild retention): 11-20% at 4h Grade 2 (moderate retention): 21-35% at 4h Grade 3 (severe retention): 36-50% at 4h Grade 4 (very severe retention): >50% retention at 4h Electronically signed by: En Ojeda MD 05/14/2024 01:35 PM EDT
--- OUTSIDE RECORDS SUMMARY | 2024-05-14 08:27 | XMS_ITS | Encounter Summary ---
Author Organization [facility] Address [facility] [place] [address] Care Team Providers Care Asbestos Siding Mechanic Name Role Phone Eleuterio Santiago Primary Care Provider Unavailabl e Encounter Details Date Type Department Care Team Description 03/28/2017 Release of Information Medical Records [address] [place] [address] Abstract, Provider Social History Tobacco Use Types Packs/Day Years Used Date Smoking Tobacco: Never Assessed Sex Assigned at Date Recorded Not on file documented as of this encounter Plan of Treatment Not on file documented as of this encounter Visit Diagnoses Not on filedocumented in this encounter Care Teams Asbestos Siding Mechanic Relationship Specialty Start Date End Date Eleuterio Santiago PCP - General Family Practice 12/29/16 documented as of this encounter
--- OUTSIDE RECORDS SUMMARY | 2024-05-14 08:27 | XMS_ITS ---
Author Organization [facility] Address [address] [place] [address] Care Team Providers Care Director Of Engineering Name Role Phone Rafael Ghotra Primary Care Provider UnavailEn Mclaughlin [phone] REASON FOR VISIT please send colon prep [...] Active Encounters Encounter Location Date Provider Diagnosis [facility] [address] [address] 03/28/2023 En Villarreal Plan Of Treatment Medication [...] Notes * DEXTER LANDAVERDEOB:1970 (52 yo M)Acc No.[id number]:03/28/2023 Patient:KANDACE BABB :1970???Age:52 Y???Sex:Male Address[address], [place], [address] * Refills? Start Dulcolax (colon prep) Tablet [...] true * Date:? Generated for Chemo bowling/Yarelis/Christiitting on:?05/14/2024 08:27 AM EDT
--- OUTSIDE RECORDS SUMMARY | 2024-05-14 08:27 | XMS_ITS | Patient Health Record ---
Author Organization [facility] Address [address] [place] [address] Care Team Providers Care Chucking Lathe Operator Name Role Phone Rafael Ghotra Primary Care Provider Unavailab En Vargas Unavailable [phone] Allergies No Known Allergies Results Component Value Reference Range Notes Glucose, Whole Blood Reviewed date:06/14/2023 07:39:56 PM Interpretation: Performing Lab:[facility], [address] [place] [phone] Notes/Report: Glucose, Whole Blood 122 60-115 mg/dL METER # : [id number] Pathology (Not yet reviewed by provider) Interpretation: Performing Lab:[facility], [address] [place] [phone] Notes/Report: ----- Name: Leandro Landaverde Age/Sex: 53/M : 1970 Unit#: [id number] Attend Dr: En Villarreal Re06/14/23 Status : [facility] Location: [facility] Disch: ----- SPEC : [id number] RECD : 06/14/23 STATUS: KURT KINNEY NUM: [id number] TICO: 06/14/231117 [facility] DR: En Villarreal ENTERED: 06/14/23- 21 [...] B. CEDS Copies To: Rafael Ghotra PA-C [address] [place], [place] [address] [address] [place] [address] CONTINUED ON NEXT PAGE ----- Name: Leandro Landaverde Age/Sex: 53/M : 1970 Unit#: [id number] Attend Dr: En Villarreal Re06/14/23 Status : [facility] Location: [place] Disch: ----- SPEC : [id number] RECD : 06/14/23 STATUS: KURT KINNEY NUM: [id number] TICO: 06/14/23-[address] [facility] [address]: En Villarreal ENTERED: 06/14/23-02 02 SP TYPE: Surgical OTHR DR: Rafael Ghorta PA-C ORDERED: JEFFERSON Stain/6, Emerald Hensley L4/2 Copies To: (Continued) En Villarreal [address] [place] [address] [address] [place] [address] ----- Signed (signature on file) Slade Woo [...] Status Risk Notes Problem Colon cancer screening (994213098) Colon cancer screening (Z12.11) Active confirmed Problem History of polyp of colon (situation) (937976899) Personal history of colonic polyps (Z86.010) Active confirmed Problem Diverticular disease of colon (116663604) Diverticulosis of large intestine without perforation or abscess without bleeding (K57.30) Active confirmed Problem 112061237 Diverticulitis (K57.92) Active confirmed Problem 332429960 Abnormal CT scan , colon (R93.3) Active confirmed Problem Right upper quadrant pain (205629606) RUQ pain (R10.11) Active confirmed Encounters Encounter Location Date Provider Diagnosis [facility] [place] [address] [place], [place] [phone] 06/14/2023 En Villarreal Encounter for scre ening [...] Insured Coverage Start Date Coverage End Date [facility] [address] [address] [place], [place] [id number] LEANDRO LANDAVERDE Self - patient is the insured Medical (General) History Medical History History ICD Code Hypertension Denies [place],DM,CVA,Lung disease,renal dise ase Sigmoid diverticulitis in 08/2016---had a CT in ER Back pain Screening colonoscopy in 03/17 018 with diverticulosis and 1 small cecal tubular adenoma removed Hyperlipidemia Surgical History Surgery Date(Month/Year)
--- OUTSIDE RECORDS SUMMARY | 2024-05-14 08:27 | XMS_ITS ---
Author Organization [facility] Address [address] [place] [address] Care Team Providers Care Robotics Systems Engineer Name Role Phone Rafael Ghotra Primary Care Provider UnavailEn Mclaughlin Unavailable [phone] Allergies No Known Allergies REASON FOR VISIT [...] Risk Notes Problem Right upper quadrant pain (318207088) RUQ pain (R10.11) Active confirmed Problem History of polyp of colon (situation) (804770281) Personal history of colonic polyps (Z86.010) Active confirmed Problem Colon cancer screening (178424544) Colon cancer screening (Z12.11) Active confirmed Vital Signs Temperature 98.4 degrees Fahrenheit 03/28/19 24 Blood pressure systolic 00 mm Hg 03/28/19 24 Blood pressure diastolic 00 mm Hg 024 Height 71 in 03/28/2023 Weight 226 lbs 03/28/2023 BMI 31.52 kg/m2 03/28/2023 Encounters Encounter Location Date Provider Diagnosis [facility] [address] [place] [address] 03/28/2023 En Villarreal RUQ pain R10.11 ; [...] Notes * DEXTER LANDAVERDEOB:1970 (53 yo M)Acc No.[id number]:03/28/2023 Progress Notes Patient:?LEANDRO LANDAVERDE Provider:?En Villarreal MD :1970???Age:52 Y???Sex:Male Myke e:03/28/2023 Address: [address] , [place], [place] Pcp:Rafael Ghotra Subjective: * Chief Complaints: * [...] past year??Never (0 point),?Points?1,?Interpretation?Negative.?Miscellaneous:?Marital status: . 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 ???Nonsmoker; very occasional drink From the [...] Procedure Codes:?3017F COLOR ECTAL CA SCREEN DOC [id number] TOBACCO NON-EMCQH9306 BP SCR NOT PRFRM REC REASON NOS * Preventive Medicine:? ??Counseling:?Care goal follow-up plan:?Above Normal BMI Follow-up?Giving encouragement to exercise,?BMI management provided?Yes.? * Follow Up:?prn * * Sign off status: Completed true * Provider:?En Villarreal MD Date:? 024 Generated for Chemo bowling/Yarelis/eTransmitting on:?05/14/2024 08:27 AM EDT History and Physical Notes * [...]
--- OUTSIDE RECORDS SUMMARY | 2024-05-14 08:27 | XMS_ITS ---
Author Organization [facility] Address [address] [place] [address] Care Team Providers Care Housekeeping Department Worker Name Role Phone Rafael Ghotra Primary Care Provider Unavailab En Vargas Unavailable [phone] REASON FOR VISIT screening colon Problems Problem Type SNOMED Code ICD Code Onset Dates Problem Status W/U Status Risk Notes Problem Diverticular disease of colon (334485068) Diverticulosis of large intestine without perforation or abscess without bleeding (K57.30) Active confirmed Encounters Encounter Location Date Provider Diagnosis [facility] Out[place] [address] [place], [place] [phone] 06/14/2023 En Villarreal Encounter for scre ening [...] Notes * DEXTER LANDAVERDEOB:1970 (54 yo M)Acc No.[id number]:06/14/2023 COLON WITH MAC Patient:?KANDACE LANDAVERDE Provider:?En Villarreal MD :1970???Age:53 Y???Sex:Male Myke e:06/14/2023 Address:[address] [place] [address], [place], [place] Pcp:Rafael Ghotra Subjective: * Chief Complaints: * ???1. Screening colon. * Medical History:? Objective: * Vitals:? Assessment: * Assessment: 1.?Encounter for screening c olonoscopy - Z12.11 (Primary)???2.?Colon polyps - K63.5???3.?Diverticulosis of large intestine without perforation or abscess without bleeding - K57.30???4.?Other hemorrhoids - K64.8??? Plan: * Treatment: * Procedure Codes:?47729 COLON OSCOPY AND BIOPSY, Modifiers: 33 * * The named appointment provid er may or may not be the originator of this progress note, and it is not deemed complete until electronically signed by the appointment provider. Sign off status: Pending * Provider:?En Villarreal MD Date:? 024 Generated for Chemo bowling/Yarelis/eTransmitting on:?05/14/2024 08:27 AM EDT
== END ==
LOC: HO.NUCMED 08:10
PROVIDERS: PCP Physician Assistant; Visit Provider Physician Assistant
DX: R68.81 Early satiety (principal)
CPT/HCPCS: 78264; A9541

== ENCOUNTER → 2024-05-14 08:12 | Outpatient (BNV) | payer OTHER, SELFPAY | PROVIDERS: PCP Physician Assistant; Visit Provider Radiology Diagnostic Radiology | DX: R68.81 Early satiety (principal) | CPT/HCPCS: 78264 ==

== ENCOUNTER 2024-09-30 14:27 | Outpatient (AMB) | payer OTHER, SELFPAY ==
--- NOTE | 2024-09-30 14:35 | A.OFFVIS_ITS ---
Vital Signs 09/30/24 14:36 Height 5 ft 11 in Weight 228 lb 13.437 oz BMI 31.9 BP 112/72 Blood Pressure Location Lt brachial Position Sitting Pulse 93 Pulse Source Pulse Oximeter Intake Visit Reasons: 6m follow up Intake Note: 6 mth f/up Chopped Strand Operator Required: No Accompanied by: Self / Same As Patient Allergies No Known Allergies (No Known Allergies*) Allergy (Verified 04/11/24 08:47) Medication List - Last Reconciled 09/30/24 by Orion Rutherford MD amoxicillin 1,000 mg (2 x 500 mg) PO BID 14 days atorvastatin 40 mg PO BEDTIME clarithromycin 500 mg PO BID 14 days clonazepam 1 mg PO DAILY 30 days hydroxyzine HCl 25 mg PO BEDTIME 90 days ibuprofen 800 mg PO Q12H 30 days lisinopril-hydrochlorothiazide 20-12.5 mg 1 tab PO DAILY metformin 500 mg PO DAILY 90 days metoclopramide HCl (Reglan) 5 mg PO QID 30 days omeprazole 20 mg PO DAILY pantoprazole 20 mg PO DAILY 30 days triamcinolone acetonide 0.1% 1 appl topical DAILY 15 days HPI Comments Details: 54-year-old gentleman here for follow-up. He was seen previously for burning chest discomfort at rest and with exertion. He underwent exercise stress test which was normal. He has background of hypertension. Blood pressure control is good. His EKG on previous visit showed inferior Q-waves and he underwent echocardiography. Echocardiography showed no regional wall motion ab normalities. He has been doing well and has no exertional symptoms. He is starting to become more active and plans to play basketball with his son. Blood pressure control is good. He is compliant with medications. He is cutting back on sugars in his diet because he has been diagnosed with diabetes and his hemoglobin A1c was 6.7 recently. His triglycerides were 160, cholesterol 178, LDL 102 an HDL 44. Given diagnosis of diabetes I think he should be started on statin He is back for follow-up. He is doing well. No chest pain or shortness of breath. Tolerating statin therapy well. 03/01/2023: He returns for follow-up. He has been doing well. Blood pressure is well controlled. He is not taking statins anymore. He is saying he has not diabetic and he was told that he does not need statins. He has a little upset that diabetes is still a diagnosis in his chart and wanted the diagnosis to be removed from his records. 03/04/2023: Here for follow-up. BP is stable. He has restarted the statins. Taking regularly for more than a month. He will be getting repeat labs through PCP. 09/30/2024: He is here for follow-up. Denying any symptoms on follow-up. Blood pressure well controlled. He has LDL cholesterol previously was 110 but with changing his diet and restarting atorvastatin his LDL cholesterol has improved to 39. Total cholesterol 81, triglyceride 54 and HDL 32. He said he was on vacation and just returned and we will be restarting his exercise routine. 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 Cognitive needs: No Hearing needs: No Vision needs: No Review of Systems Const Denies chills, Denies fatigue, Denies fever(s), Denies frequent falls, Denies we akness, Denies weight gain and Denies weight loss ENT Denies dizziness Card Denies chest pain, Denies leg edema, Denies lightheadedness, Denies palpit ations, Denies dyspnea and Denies dyspnea on exertion Resp Denies cough, Denies dyspnea and Denies dyspnea on exertion GI Denies hematochezia Musc Denies abnormal gait, Denies muscle weakness, Denies numbness, Denies radiating pain into limb and Denies tingling Neuro Denies abnormal gait, Denies dizziness, Denies frequent falls, Denies numbness, Denies tingling and Denies weakness Endo Denies fatigue and Denies palpitations Physical Exam Vital Signs: Last Vital Signs Pulse 93 09/30/24 14:36 BP 112/72 09/30/24 14:36 BMI result Body Mass Index 31.9 GENERAL APPEARANCE: in no acute distress, pleasant. NECK: no carotid bruit, no jugular venous distention. SKIN: no suspicious lesions, warm and dry. HEART: no murmurs, regular rate and rhythm. LUNGS: clear to auscultation bilaterally. ABDOMEN: soft, nontender. EXTREMITIES: no edema. PERIPHERAL PULSES: equal. NEUROLOGIC: No gross deficits, AAO X 3 Assessment & Plan Assessment & Plan (1) HTN (hypertension): Comment: Stable Code(s): I10 - Essential (primary) hypertension Category: Medical Qualifiers: Hypertension type: essential hypertension Qualified Code(s): I10 - Essential (primary) hypertension (2) Hyperlipidemia: Code(s): E78.5 - Hyperlipidemia, unspecified Category: Medical Qualifiers: Hyperlipidemia type: mixed hyperlipidemia Qualified Code(s): E78.2 - Mixed hyperlipidemia Plan [age] year gentleman who is here for follow-up. He has background history of hypertension hyperlipidemia. He is currently taking lisinopril and hydrochlorothiazide combination in his blood pressure is well controlled. He has diabetes and his LDL target is less than 70. He is currently taking atorvastatin and watching his diet and his LDL is 39. I have advised him to continue same medications and his diet. I have advised him to become more active physically. He can see us once a year. Thank you for allowing me to participate in the care of your patient. Please feel free to contact me if you have any questions. Coding Level of Care Code Est Pt Level 3 (15810) Diagnoses Essential hypertension I10 Hypertension type: essential hypertension Mixed hyperlipidemia E78.2 Hyperlipidemia type: mixed hyperlipidemia
[2024-09-30 14:36] VITALS: BP 112/72; PULSE 93; BMI 31.9
--- OUTSIDE RECORDS SUMMARY | 2024-09-30 15:11 | XMS_ITS | Encounter Summary ---
Author Organization [facility] Address [facility] [place] [address] Care Team Providers Care Robotic Welder Name Role Phone Eleuterio Santiago Primary Care Provider Unavailabl e Encounter Details Date Type Department Care Team Description 03/28/2017 Release of Information Medical Records [address] [place] [id number] Abstract, Provider Social History Tobacco Use Types Packs/Day Years Used Date Smoking Tobacco: Never Assessed Sex Assigned at Date Recorded Not on file documented as of this encounter Plan of Treatment Not on file documented as of this encounter Visit Diagnoses Not on filedocumented in this encounter Care Teams Robotic Welder Relationship Specialty Start Date End Date Eleuterio Santiago PCP - General Family Practice 12/29/16 documented as of this encounter
--- OUTSIDE RECORDS SUMMARY | 2024-09-30 15:11 | XMS_ITS | Patient Health Record ---
Author Organization [facility] Address [address] [place] [address] Care Team Providers Care Bus Analyst Name Role Phone Rafael Ghotra Primary Care Provider UnavailEn Mclaughlin Unavailable [phone] Allergies No Known Allergies Reason For Referral No Information Medications Medication SIG (Take, Route, Frequency, Duration) Notes Start Date End Date Status hydrOXYzine HCl 25 MG TAKE 1 TABLET BY M OUTH EVERYDAY AT BEDTIME Oral for 90 Active Dulcolax (colon prep) 5 MG take at 3:00 p.m and 7:00p.m. Orally two tablets twice a day for one day for 1 day 03/28/2023 Not-Taking MiraLax (colon prep) 17 GM/SCOOP 1 238GM bottle mixed with Gatorade or Crystal Light Orally begin at 5:00 p.m. the day before the procedure for 1 day 03/28/2023 Not-Taking Atorvastatin Calcium 40 MG TAKE 1 TABLET BY MOUTH AT BEDTIME Oral for 90 Days Active Omeprazole 20 MG 1 capsule 1/2 to 1 hour before morning meal Orally Once a day for 30 days 09/05/2024 Active Lisinopril-hydroCHLOROthia zide 20-12.5 MG TAKE 1 TABLET BY MOUTH EVERY DAY Oral for 90 Days Active Ibuprofen 800 MG 1 tablet with food o r milk as needed Orally every 8 hrs Active metFORMIN HCl 500 MG TAKE 1 TABLET BY MO UTH EVERY DAY Oral for 90 Days Active Benzonatate 200 MG [address] capsule [address] ee times a day for 30 day(s) Active Metoclopramide HCl 5 MG Oral for 30 Days Not-Taking Lisinopril-hydroCHLOROthia zide 10-12.5 MG TAKE 1 TABLET BY MOUTH EVERY DAY Oral for 90 Not-Taking amLODIPine Besylate 5 MG Oral for 90 Active clonazePAM 1 MG Oral for 30 Ac tive Atorvastatin Calcium 40 MG Oral for 90 Active Immunizations Vaccine Route Administration Date Status Comme nts Influenza Unknown 09/05/2024 Refused Social History Tobacco Use: Social History Observation [...] Status Risk Notes Problem Colon cancer screening (704279815) Colon cancer screening (Z12.11) Active confirmed Problem History of polyp of colon (situation) (688562628) Personal history of colonic polyps (Z86.010) Active confirmed Problem Diverticular disease of colon (856603253) Diverticulosis of large intestine without perforation or abscess without bleeding (K57.30) Active confirmed Problem Early satiety (418322365) Early satiety (R68.81) Active confirmed Problem 096437474 Diverticulitis (K57.92) Active confirmed Problem Delayed gastric emptying (608388341) Delayed gastric emptying (K30) Active confirmed Problem 251225626 Abnormal CT scan , colon (R93.3) Active confirmed Problem Gastroesophageal reflux disease (665654558) GERD without esophagitis (K21.9) Active confirmed Problem Right upper quadrant pain (357833079) RUQ pain (R10.11) Active confirmed Vital Signs Temperature 97.7 degrees Fahrenheit 09/05/2024 Blood pressure diastolic 01 mm Hg 09/05/2024 Height 71 in 09/05/2024 Blood pressure systolic 001 mm Hg 09/05/2024 Weight 225 lbs 09/05/2024 BMI 31.38 kg/m2 09/05/2024 Procedures Procedure Date Ordered Date Performed Result Body Sit e UPPER GI ENDOSCOPY 09/05/2024 N/A Encounters Encounter Location Date Provider Diagnosis [facility] [address] [place] [address] 09/05/2024 En Villarreal GERD without esophagitis K21.9 ; Delayed gastric emptying K30 and Early satiety R68.81 Assessments Encounter Date Diagnosis (ICD Code) Assessment Notes Treatment Notes Treatment Clinical Notes Section Notes 09/05/2024 Delayed gastric emptying (ICD-10 - K30) Overall, Leandro appears well. We did review his symptoms and the abnormal nuclear medicine gastric emptying study. We did review the possibility of some component of gastroparesis contributing to his current upper GI symptoms. He does have diabetes but this seems to be well-controlled given normal hemoglobin A1c's and just the use of metformin. Nonetheless, he may have some component of a diabetic induced gastroparesis. Since the metoclopramide has not helped him I did advise him to continue to stay off of that. I am going to start him on omeprazole 20 mg daily to see if that can help with his reflux symptoms. I have also recommended an upper endoscopy for further evaluation to rule out any component of significant esophagitis, gastritis, and H. pylori infection. Full consent has been obtained for this, including risks of bleeding and perforation. I did advise him stay on just clear liquids the day before the procedure so as to minimize any chance of having food in the stomach during the procedure. The procedure will be done with monitored anesthesia care. He was advised not to use his metformin on the morning of the procedure either. We did review his colonoscopy findings as well. I advised him of the need for the follow-up colonoscopy in 2028. Leandro was comfortable with this plan. Thank you again for allowing me to precipitate in Leandro's care. I shall continue to keep you advised of his progress. 09/05/2024 GERD without esophagitis (ICD-10 - K21.9) Overall, Leandro appears well. We did review his symptoms and the abnormal nuclear medicine gastric emptying study. We did review the possibility of some component of gastroparesis contributing to his current upper GI symptoms. He does have diabetes but this seems to be well-controlled given normal hemoglobin A1c's and just the use of metformin. Nonetheless, he may have some component of a diabetic induced gastroparesis. Since the metoclopramide has not helped him I did advise him to continue to stay off of that. I am going to start him on omeprazole 20 mg daily to see if that can help with his reflux symptoms. I have also recommended an upper endoscopy for further evaluation to rule out any component of significant esophagitis, gastritis, and H. pylori infection. Full consent has been obtained for this, including risks of bleeding and perforation. I did advise him stay on just clear liquids the day before the procedure so as to minimize any chance of having food in the stomach during the procedure. The procedure will be done with monitored anesthesia care. He was advised not to use his metformin on the morning of the procedure either. We did review his colonoscopy findings as well. I advised him of the need for the follow-up colonoscopy in 2028. Leandro was comfortable with this plan. Thank you again for allowing me to precipitate in Leandro's care. I shall continue to keep you advised of his progress. 09/05/2024 Early satiety (ICD-10 - R68.81) Overall, Leandro appears well. We did review his symptoms and the abnormal nuclear medicine gastric emptying study. We did review the possibility of some component of gastroparesis contributing to his current upper GI symptoms. He does have diabetes but this seems to be well-controlled given normal hemoglobin A1c's and just the use of metformin. Nonetheless, he may have some component of a diabetic induced gastroparesis. Since the metoclopramide has not helped him I did advise him to continue to stay off of that. I am going to start him on omeprazole 20 mg daily to see if that can help with his reflux symptoms. I have also recommended an upper endoscopy for further evaluation to rule out any component of significant esophagitis, gastritis, and H. pylori infection. Full consent has been obtained for this, including risks of bleeding and perforation. I did advise him stay on just clear liquids the day before the procedure so as to minimize any chance of having food in the stomach during the procedure. The procedure will be done with monitored anesthesia care. He was advised not to use his metformin on the morning of the procedure either. We did review his colonoscopy findings as well. I advised him of the need for the follow-up colonoscopy in 2028. Leandro was comfortable with this plan. Thank you again for allowing me to precipitate in Leandro's care. I shall continue to keep you advised of his progress. Plan Of Treatment Pending Test Test Name Order Date UPPER GI ENDOSCOPY 09/05/2024 US ABD 03/28/2023 Future Test Test Name Order Date COLONOSCOPY 12/29/2016 COLONOSCOPY 03/28/2023 Next Appt Details Provider Name:En iVllarreal , 11/04/2024 02:20:00 PM, [address] [place] [address], [phone], Insurance Providers Payer Name Payer Address Payer Phone Subscriber Number Group Number Insured Name Patient Relationship to Insured Coverage Start Date Coverage End Date [facility] [address] [address] [place], [place] [id number] LEANDRO LANDAVERDE Self - patient is the insured Medical (General) History Medical History History ICD Code Hypertension Denies ME,DM,CVA,Lung disease,renal dise ase Sigmoid diverticulitis in 08/2016- -had a CT in ER Back pain Screening colonoscopy in 03/17 018 with diverticulosis and 1 small cecal tubular adenoma removed Hyperlipidemia Screening colonoscopy in with removal of a small tubulovillous adenoma from the cecum Delayed gastric emptying on Nuclear Med study 2024-trial of metoclopramide was not helpful Surgical History Surgery Date(Month/Year)
== END 2024-09-30 14:49 | disposition home or self-care (01) ==
LOC: HO.HCS 14:28
PROVIDERS: PCP Physician Assistant; Visit Provider Internal Medicine Cardiovascular Disease
DX: I10 Essential (primary) hypertension (principal); E78.2 Mixed hyperlipidemia
CPT/HCPCS: 99213

== ENCOUNTER → 2024-09-30 14:27 | Outpatient (BNVA) | payer OTHER, SELFPAY | PROVIDERS: PCP Physician Assistant; Visit Provider Internal Medicine Cardiovascular Disease | DX: I10 Essential (primary) hypertension (principal); E78.2 Mixed hyperlipidemia | CPT/HCPCS: 99212 ==

== ENCOUNTER 2024-10-17 08:54 | Outpatient (AMB) | payer OTHER, SELFPAY ==
--- OUTSIDE RECORDS SUMMARY | 2023-06-14 05:30 | XMS_ITS ---
Author Organization [facility] Address [address] [place] [address] Care Team Providers Care Animal Care Assistant Name Role Phone Rafael Ghotra Primary Care Provider Unavailab En Vargas Unavailable [phone] REASON FOR VISIT screening colon Problems Problem Type SNOMED Code ICD Code Onset Dates Problem Status W/U Status Risk Notes Problem Diverticular disease of colon (453006807) Diverticulosis of large intestine without perforation or abscess without bleeding (K57.30) Active confirmed Encounters Encounter Location Date Provider Diagnosis [facility] [address] [place] [id number] 06/14/2023 En Villarreal Encounter for scre ening colonoscopy Z12.11 ; Colon polyps K63.5 ; Diverticulosis of large intestine without perforation or abscess without bleeding K57.30 and Other hemorrhoids K64.8 Assessments Encounter Date Diagnosis (ICD Code) Assessment Notes Treatment Notes Treatment Clinical Notes Section Notes 06/14/2023 Encounter for screening colonoscopy (ICD-10 - Z12.11) 06/14/2023 Colon polyps (ICD-10 - K63.5) 06/14/2023 Diverticulosis of large intestine without perforation or abscess without bleeding (ICD-10 - K57.30) 06/14/2023 Other hemorrhoids (ICD-10 - K64.8) Plan Of Treatment Next Appt Details Provider Name:En Villarreal , 11/04/2024 02:20:00 PM, [address] [place] [address] , [place], [place], [phone], Progress Notes * BUTCH LANDAVERDERODOB:1970 (54 yo M)Acc No.[id number]:06/14/2023 COLON WITH MAC Patient: KANDACE KRISHNAMURTHY Provider: Jesus Villarreal MD :1970 A ge:53 Y S ex:Male Date:06/14/2023 Address:[address] [place] [address], [id number] Pcp:Rafael Ghotra Subjective: * Chief Complaints: * 1 . Screening colon. * Medical History: Objective: * Vitals: Assessment: * Assessment: 1. E ncounter for screening colonoscopy - Z12.11 (Primary) 2 . C olon polyps - K63.5 3 . D iverticulosis of large intestine without perforation or abscess without bleeding - K57.30 4 . O ther hemorrhoids - K64.8 Plan: * Treatment: * Procedure Codes: 4 5380 COLONOSCOPY AND BIOPSY, Modifiers: 33 * * The named appointment provid er may or may not be the originator of this progress note, and it is not deemed complete until electronically signed by the appointment provider. Sign off status: Pending * Provider: Jesus Villarreal MD Date: 0 06/14/2023 Generated for Chemo bowling/Yarelis/Christiitting on: 0 10/17/2024 09:24 AM EDT
[2024-10-17 08:57] VITALS: BP 102/68; PULSE 74; RESP 18; TEMP 36.3; O2SAT 97; BMI 32.3
--- NOTE | 2024-10-17 08:57 | A.OFFPC_ITS ---
Vital Signs 10/17/24 08:57 Height 5 ft 11 in Weight 231 lb 6 oz BMI 32.3 BP 102/68 Blood Pressure Location Lt brachial Position Sitting Respiration 18 Pulse 74 Pulse Source Pulse Oximeter Temp 97.3 F Temp Source Temporal Artery Scan Pulse Oximetry (%) 97 Oxygen Delivery Method Room Air Intake Visit Reasons: Annual Exam Linen Grader Required: No Accompanied by: Self / Same As Patient Allergies No Known Allergies (No Known Allergies*) Allergy (Verified 10/17/24 09:11) Medication List - Last Reconciled 10/17/24 by Rafael Ghotra PA-C atorvastatin 40 mg PO BEDTIME clonazepam 1 mg PO DAILY 30 days hydroxyzine HCl 25 mg PO BEDTIME 90 days ibuprofen 800 mg PO Q12H 30 days lisinopril-hydrochlorothiazide 20-12.5 mg 1 tab PO DAILY metformin 500 mg PO DAILY 90 days omeprazole 20 mg PO DAILY Tobacco use date assessed: 10/17/24 Dental Screening Dental Screen Date: 10/17/24 Did you have a dental visit in the last 12 months?: Yes Did you have a dental problem in the last 6 months where you did not have access to dental care?: No Was dental information given to patient?: Patient has dentist HPI Annual Exam HPI Details Patient is a 54-year-old male here today for a routine annual physical.? Patient has a past medical history significant for type 2 diabetes, obesity, anxiety, hyperlipidemia. Hypertension: Blood pressure acceptable today in office. Continues on lisinopril hydrochlorothiazide. .. Type 2 diabetes:? Did start metformin 500 daily. . Will continue metformin. Most recent A1c at acceptable. Has not blood sugar remains slightly elevated. He reports he has made dietary changes .. Leukocytosis: Have noted a slight elevation in his white blood cell count over the past few years. Otherwise no signs of infection .. Generalized anxiety disorder: Has been fairly well controlled with use of clonazepam. He does have more stress as of late due to personal issues at home as his is recovering from cancer. He does work 2 jobs as well. .. .. Hyperlipidemia:? Most recent lipid panel showing excellent control of his LDL and total cholesterol. He has restarted using atorvastatin, has followed up with Cardiology here in [place] as well. Will continue with dietary and lifestyle modifications. Vaccines: Up-to-date with COVID vaccine, tetanus vaccine. UTD with PCV . Considering Flu Colon cancer screening: Colonoscopy done in June of 2023, a few polyps found, repeat 5 years [facility] Medical History Bronchitis Back pain Elevated cholesterol Type 2 diabetes mellitus HTN (hypertension) Sleep apnea Surgical History History of colonoscopy Family History Father Diabetes Depression Colon cancer Mother Diabetes Depression Breast mass Family/Other Hypertension Social History (Updated 10/17/24 @ 09:10 by Rafael Ghotra PA-C) Housing: Apartment Alcohol intake: current Alcohol intake frequency: holidays/special occasions only Alcohol type: beer Patient Tobacco Use Status: Never used Tobacco e-Cigarette/Vaping Use: Never Used Second Hand Smoke Exposure: No service: No Current occupational status: employed 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 1. Little interest or pleasure in doing things: not at all 2. Feeling down, depressed, or hopeless: not at all 3. Trouble falling or staying asleep, or sleeping too much: not at all 4. Feeling tired or having little energy: not at all 5. Poor appetite or overeating: not at all 6. Feeling bad about yourself - or that you are a failure or have let yourself or your family down: not at all 7. Trouble concentrating on things, such as reading the newspaper or watching television: not at all 8. Moving or speaking so slowly that other people could have noticed. Or the opposite - being so fidgety or restless that you have been moving around a lot more than usual: not at all 9. Thoughts that you would be better off or of hurting yourself in some way: not at all Total score: 0 Depression Screening Interpretation: Negative Depression Screening Done: Yes 92015 - PHQ-9 Billing: Yes Source: Developed by Drs. En Hayden, Elizabeth Smalls, Narendra Gaytan and colleagues, with an educational jax from [employer]. Thrive Questionnaire Date Thrive assessed: 10/17/24 I am a: Patient What is your living situation today?: I choose not to answer this question Within the past 12 months, did the food you bought not last and you didn't have the money to get more?: I choose not to answer this question Within the past 12 months, did you worry whether your food would run out before you got money to buy more?: I choose not to answer this question Do you have trouble paying for medicines?: I choose not to answer this question Do you have trouble getting transportation to medical appointments?: I choose not to answer this question Do you have trouble paying your heating and electricity bill?: I choose not to answer this question Do you have trouble taking care of your child, family member or friend?: I choose not to answer this question Do you have trouble with day-to-day activities such as bathing, preparing meals, shopping, managing finances, etc.?: I choose not to answer this question Are you currently unemployed and looking for a job?: I choose not to answer this question Are you interested in more education?: I choose not to answer this question Please select the resources that you would like help with: None Currently or been in a relationship where the following occur: I choose not to answer THRIVE Score: 0 AUDIT C Alcohol Use Questionnaire (AUDIT-C) 1. How often do you have a drink containing alcohol?: Never Total Score: 0 ELIZA-7 AMB Questionnaire ELIZA-7 Date ELIZA - 7 assessed: 10/17/24 Feeling nervous, anxious, or on edge: 0 = Not at all Not being able to stop or control worryin = Not at all Worrying too much about different things: 0 = Not at all Trouble relaxin = Not at all Being so restless that it is hard to sit still: 0 = Not at all Becoming easily annoyed or irritable: 0 = Not at all Feeling afraid as if something awful might happen: 0 = Not at all Total ELIZA-7 score (0-4 normal; 5-9 mild; 10-14 moderate; 15-21 severe): 0 Source: Developed by Drs. En Hayden, Elizabeth Smalls, Narendra Gaytna and colleagues, with an educational jax from [employer]. ELIZA-7 Assessment Billing ELIZA-7 Assessment Tool: ELIZA-7 Assessment 09459 Review of Systems Const Denies body aches, Denies chills, Denies excessive sweating, Denies fatigue, Denies fever(s) and Denies headache(s) Eyes Denies blurry vision ENT Denies dysphagia, Denies vertigo, Denies dizziness, Denies headache(s), Denies hearing loss and Denies tinnitus Card Denies chest pain, Denies chest pain with activity, Denies syncope, Denies irregular heart rhythm and Denies dyspnea Resp Denies chest congestion, Denies cough, Denies hemoptysis, Denies dyspnea and Denies wheezing GI Denies abdominal pain, Denies melena, Denies hematochezia, Denies coffee ground emesis, Denies dysphagia, Denies diarrhea, Denies nausea and Denies vomiting Denies difficulty urinating, Denies dysuria, Denies urinary frequency, Denies urinary hesitancy and Denies urinary urgency Musc Denies arthralgias, Denies limited range of motion, Denies muscle cramps and Denies muscle weakness Skin/Breast Denies rash and Denies skin ulcer Neuro Denies Abnormal speech present, Denies confusion, Denies vertigo, Denies dizziness, Denies syncope, Denies headache(s), Denies memory loss and Denies seizure-like activity Psych Denies anxiety, Denies confusion, Denies depression, Denies memory loss, Denies panic attacks and Denies paranoia Endo Denies excessive sweating, Denies fatigue, Denies flushing, Denies polydipsia a nd Denies polyuria Aller/Immun Denies wheezing Physical exam (Primary Care) Vital Signs: Last Vital Signs Temp 97.3 F 10/17/24 08:57 Pulse 74 10/17/24 08:57 Resp 18 10/17/24 08:57 BP 102/68 10/17/24 08:57 Pulse Ox 97 10/17/24 08:57 Oxygen Delivery Method Room Air 10/17/24 08:57 BMI result Body Mass Index 32.3 BMI Assessment/Plan discussion: High BMI High, discussed plan: lifestyle, weight reduction, dietary and physical activity Tobacco/Smoking Status: Tobacco use Status Tobacco use date assessed 04/11/24 10/17/24 08:57 Patient Tobacco Use Status Never used Tobacco 10/17/24 08:57 e-Cigarette/Vaping Use Never Used 10/17/24 08:57 PHQ-9: PHQ-9 Score PHQ-9: Total score 0 10/17/24 08:57 Depression Screening Interpretation: Negative Thrive Assessment: Date of Thrive Assessment Date Thrive assessed 04/11/24 10/17/24 08:57 Currently or been in a relationship where the following occur: I choose not to answer Const General: cooperative, comfortable, no acute distress, alert and awake; No confusion Orientation/consciousness: oriented to person, oriented to place, patient oriented x3 and No confusion HENMT Head: Yes normocephalic Ears: external ears normal and TM's normal bilaterally Face and sinus: No sinus tenderness Mouth: Normal oral and palatal mucosa present and tongue normal Teeth and gingiva: dentition normal and gingiva normal Throat: Yes posterior oropharynx normal, Yes tonsils normal and Yes uvula midline Eyes Conjunctivae: conjunctivae normal Sclerae: sclerae normal Pupils: Equal, round and reactive pupils present EOM: EOMs intact bilaterally Direct Ophthalmoscopy: No no photophobia Neck Neck: Yes no lymphadenopathy, No tender and Yes no JVD Thyroid: Thyroid normal Carotids: no bruits Chest Chest palpation & inspection: no tenderness Resp Effort & Inspection: normal respiratory effort, no audible wheezes, not labored and no stridor Auscultation: no crackles, no rales, no rhonchi and no wheezes Cardio Jugular venous distension: no JVD Rate: regular rate, not bradycardic and not tachycardic Rhythm: regular rhythm Bruits: no carotid bruits Peripheral pulses: Peripheral pulses 2+ throughout GI Inspection: Yes normal to inspection, No abdominal wall ecchymosis and No visible herniation Palpation (GI): Soft to palpation, nontender, no guarding, not rigid and No hepatosplenomegaly present Auscultation: normoactive bowel sounds General: Yes no CVA tenderness Back/Spine/Pelvis Back: no CVA tenderness and No back tenderness Cervical Spine: cervical ROM normal Thoracic/Lumbar Spine: thoracic and lumbar spine normal to inspection, straight leg raise negative bilaterally, No thoraco-lumbar ROM limited and No lumbar spinal tenderness Skin Lesions: no lesions Rashes: no rashes Wounds: no wounds Neuro General: oriented to person, oriented to place, patient oriented x3, CN's II-XI intact bilaterally and No confusion Cranial nerves: Yes Equal, round and reactive pupils present and Yes Normal accommodation reflex present Cognition (Neuro): normal cognition Speech: No Abnormal speech present Gait exam (Neuro): Normal gait present Motor exam (neuro): 5/5 motor strength present throughout Extrem Right upper extremity: full ROM; no cyanosis Left upper extremity: full ROM; no cyanosis Right lower extremity: no edema Left lower extremity: no edema Psych Appearance: grossly normal Mental Status: mental status grossly normal Affect: normal affect Attitude: cooperative Thought process: Normal thought process present Coding Level of Care Code Est Pt Prev Care 40-64y(61380) Diagnoses Annual physical exam Z00.00 Type 2 diabetes mellitus with hyperglycemia, without long-term current use of insulin E11.65 Diabetes mellitus alf insulin use: without joint terminal attack controller use Diabetes mellitus complication status: with hyperglycemia Essential hypertension I10 Hypertension type: essential hypertension Gastroesophageal reflux disease without esophagitis K21.9 Esophagitis presence: without esophagitis Class 1 obesity E66.811 Mixed hyperlipidemia E78.2 Hyperlipidemia type: mixed hyperlipidemia Additional Codes PHQ-9 - 15213 - PHQ-9 Billing: Yes ([id number]) ELIZA-7 Assessment Billing - ELIZA-7 Assessment Tool: ELIZA-7 Assessment 09482 ([id number]) Assessment & Plan Assessment & Plan (1) Annual physical exam: Code(s): Z00.00 - Encounter for general adult medical examination without abnormal findings Category: Medical Plan: As per HPI (2) DMII (diabetes mellitus, type 2): Code(s): E11.9 - Type 2 diabetes mellitus without complications Category: Medical Qualifiers: Diabetes mellitus joint terminal attack controller insulin use: without joint terminal attack controller use Diabetes mellitus complication status: with hyperglycemia Qualified Code(s): E11.65 - Type 2 diabetes mellitus with hyperglycemia Plan: Patient's diabetes well controlled with current dose of metformin. Will continue to work on lifestyle and dietary modifications. Goal A1c is to remain below 6.5 (3) HTN (hypertension): Comment: Stable Code(s): I10 - Essential (primary) hypertension Category: Medical Qualifiers: Hypertension type: essential hypertension Qualified Code(s): I10 - Essential (primary) hypertension Plan: Patient's blood pressure acceptable today in office. Will continue current dose of antihypertensive medication. Goal blood pressures to be below 140/90 (4) GERD (gastroesophageal reflux disease): Code(s): K21.9 - Gastro-esophageal reflux disease without esophagitis Category: Medical Qualifiers: Esophagitis presence: without esophagitis Qualified Code(s): K21.9 - Gastro-esophageal reflux disease without esophagitis Plan: Followed by gastroenterology (Dr. Villarreal) has upcoming appointment. Patient's signs and symptoms of early satiety and reflux concerning for gastric reflux. Patient continues on PPI therapy. Of note has had history of H pylori (5) Class 1 obesity: Code(s): E66.811 - Obesity, class 1 Category: Medical Plan: Patient does understand his BMI is over 30 will continue working on better eating habits and being more physically active to reduce his weight. (6) Hyperlipidemia: Code(s): E78.5 - Hyperlipidemia, unspecified Category: Medical Qualifiers: Hyperlipidemia type: mixed hyperlipidemia Qualified Code(s): E78.2 - Mixed hyperlipidemia Plan: Patient's most recent lipid panel and much improved since starting atorvastatin. Continues to follow cardiology for hyperlipidemia as well. Goal LDL to be below 100 Orders: Orders Complete Blood Count no Diff Today K21.9 - Gastro-esophageal reflux disease without esophagitis Lipid Panel Today E78.2 - Mixed hyperlipidemia Hemoglobin A1c Today E11.65 - Type 2 diabetes mellitus with hyperglycemia Prostate Specific Antigen Scr Today E11.65 - Type 2 diabetes mellitus with hyperglycemia, Z12.5 - Encounter for screening for malignant neoplasm of prostate Comprehensive [place]. Panel Fast Today E11.65 - Type 2 diabetes mellitus with hyperglycemia Microalbumin, Random (w Creat) Today I10 - Essential (primary) hypertension Medications: Refilled clonazepam 1 mg PO DAILY 30 tabs 4RF 30 days F41.1 - Generalized anxiety disorder metformin 500 mg PO DAILY 90 tabs 2RF 90 days E11.65 - Type 2 diabetes mellitus with hyperglycemia lisinopril-hydrochlorothiazide 20-12.5 mg 1 tab PO DAILY 90 tabs 3RF I10 - E ssential (primary) hypertension atorvastatin 40 mg PO BEDTIME 90 tabs 3RF
--- OUTSIDE RECORDS SUMMARY | 2024-10-17 09:24 | XMS_ITS | Patient Health Record ---
Author Organization [facility] Address [address] [place] [address] Care Team Providers Care Medical Research Scientist Name Role Phone Rafael Ghotra Primary Care Provider UnavailEn Mclaughlin Unavailable [phone] Allergies No Known Allergies Reason For Referral [...] Status Risk Notes Problem Colon cancer screening (243397577) Colon cancer screening (Z12.11) Active confirmed Problem History of polyp of colon (situation) (181102706) Personal history of colonic polyps (Z86.010) Active confirmed Problem Diverticular disease of colon (211642117) Diverticulosis of large intestine without perforation or abscess without bleeding (K57.30) Active confirmed Problem Early satiety (685769509) Early satiety (R68.81) Active confirmed Problem 404261988 Diverticulitis (K57.92) Active confirmed Problem Delayed gastric emptying (995210821) Delayed gastric emptying (K30) Active confirmed Problem 701583072 Abnormal CT scan , colon (R93.3) Active confirmed Problem Gastroesophageal reflux disease (703393152) GERD without esophagitis (K21.9) Active confirmed Problem Right upper quadrant pain (528875974) RUQ pain (R10.11) Active confirmed Vital Signs Temperature 97.7 degrees Fahrenheit 09/05/2024 Blood pressure diastolic 01 mm Hg 09/05/2024 Height 71 in 09/05/2024 Blood pressure systolic 001 mm Hg 09/05/2024 Weight 225 lbs 09/05/2024 BMI 31.38 kg/m2 09/05/2024 Procedures Procedure Date Ordered Date Performed Result Body Sit e UPPER GI ENDOSCOPY 09/05/2024 N/A Encounters Encounter Location Date Provider Diagnosis [facility] [address] [place] [address] 09/05/2024 En Villarreal GERD without esophagitis K21.9 [...] COLONOSCOPY 03/28/2023 Next Appt Details Provider Name:En Villarreal , 11/04/2024 02:20:00 PM, [address] [place] [address], [id number], Insurance Providers Payer Name Payer Address Payer Phone Subscriber Number Group Number Insured Name Patient Relationship to Insured Coverage Start Date Coverage End Date [facility] [address] [address] [place], [place] [id number] LEANDRO LANDAVERDE Self - patient is the [...]
== END 2024-10-17 09:28 | disposition home or self-care (01) ==
LOC: HO.HMCH 08:54
PROVIDERS: PCP Physician Assistant; Visit Provider Physician Assistant
DX: Z00.00 Encounter for general adult medical examination without abnormal findings (principal); E11.65 Type 2 diabetes mellitus with hyperglycemia; E66.811 Obesity, class 1; Z68.32 Body mass index [BMI] 32.0-32.9, adult; I10 Essential (primary) hypertension; K21.9 Gastro-esophageal reflux disease without esophagitis; E78.2 Mixed hyperlipidemia

== ENCOUNTER → 2024-10-17 08:54 | Outpatient (BNVA) | payer OTHER, SELFPAY | PROVIDERS: PCP Physician Assistant; Visit Provider Physician Assistant | DX: Z00.00 Encounter for general adult medical examination without abnormal findings (principal); E78.2 Mixed hyperlipidemia; I10 Essential (primary) hypertension; D72.829 Elevated white blood cell count, unspecified; F41.1 Generalized anxiety disorder; E11.65 Type 2 diabetes mellitus with hyperglycemia; K21.9 Gastro-esophageal reflux disease without esophagitis; E66.811 Obesity, class 1; Z79.899 Other long term (current) drug therapy; Z68.32 Body mass index [BMI] 32.0-32.9, adult | CPT/HCPCS: 96127; 99396 ==

== ENCOUNTER 2024-11-04 13:19 | Day surgery (SDC) | payer OTHER, SELFPAY ==
--- NOTE | 2024-10-31 13:06 | P.CONAN_ITS ---
Documented by User: Kristen Stephen NP 10/31/24 13:09 HPI - Anesthesia Eval Consult details Narrative: 54yo M for Upper Endoscopy [place] [facility] [place]hld - well controlled on current regimen per 09/2024 office visit Anesthesia Pre-Procedure Meds Is the patient on any of the following meds?: GLP1/DPP4 PMFSH Active Problems Active Problems: All Active Problems Gastroparesis (Acute) H. pylori infection (Acute) Class 1 obesity (Acute) Early satiety (Acute) GERD (gastroesophageal reflux disease) (Acute) Actinic keratitis (Acute) Leukocytosis (Acute) Family history of colon cancer in father (Acute) Tubular adenoma of colon (Acute) Hyperlipidemia (Acute) Noriega's neuroma of left foot (Acute) DMII (diabetes mellitus, type 2) (Acute) Left foot pain (Acute) Abnormal ECG (Acute) Annual physical exam (Acute) Verruca (Acute) DUNCAN (obstructive sleep apnea) (Acute) Sleep disorder breathing (Acute) Diverticula of colon (Acute) Chest pain (Acute) HTN (hypertension) (Acute) ELIZA (generalized anxiety disorder) (Acute) Lumbar spine pain (Acute) Muscle spasm of back (Acute) Past Medical History Medical History Diverticulitis Anxiety Bronchitis Back pain Elevated cholesterol Type 2 diabetes mellitus HTN (hypertension) Sleep apnea Family History Family History Father Diabetes Depression Colon cancer Mother Diabetes Depression Breast mass Family/Other Hypertension Surgical History Surgical History History of colonoscopy History of Problems with Anesthesia: No Social History Social History Household Members: Spouse Housing: Apartment Alcohol intake: current Alcohol intake frequency: does not drink Alcohol type: beer Patient Tobacco Use Status: Never used Tobacco e-Cigarette/Vaping Use: Never Used Second Hand Smoke Exposure: No Use of substances other than those prescribed or required for medical reasons: No Are you DNR?: No Advance Directives: No Advance Directives Information Provided: Yes Poor oral hygiene: No service: No Current occupational status: employed 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 Cognitive needs: No Hearing needs: No Vision needs: No Meds Allergies Allergy/AdvReac Type Severity Reaction Status Date / Time No Known Allergies (No Known Allergy Verified 10/17/24 09:11 Allergies*) Home Medications ?Medication ?Instructions ?Recorded ?Confirmed ?Last Taken ?Type omeprazole 20 mg capsule,delayed 20 mg PO DAILY 10/31/24 11/04/24 History release Exam Pertinent Lab Results Pertinent Lab Results: Laboratory Tests 04/20/24 08:52 WBC 11.1 H Hgb 14.0 Hct 42.3 Plt Count 308 Sodium 138 Potassium 3.9 Chloride 103 Carbon Dioxide 26 BUN 12 Creatinine 0.83 Narrative Narrative: EKG 02/2024 NSR @ 70 Assessment and Plan Assessment Anesthesia Assessment: Chart Reviewed Final Anesthetic Review History of Problems with Anesthesia: No Documented by User: Dolores Serrano MD 11/04/24 14:09 [facility] Past Medical History Medical History Diverticulitis Anxiety Bronchitis Back pain Elevated cholesterol Type 2 diabetes mellitus HTN (hypertension) Sleep apnea Family History Family History Father Diabetes Depression Colon cancer Mother Diabetes Depression Breast mass Family/Other Hypertension Family history of problems with anesthesia: No Surgical History Surgical History History of colonoscopy Social History Social History Household Members: Spouse Housing: Apartment Alcohol intake: current Alcohol intake frequency: does not drink Alcohol type: beer Patient Tobacco Use Status: Never used Tobacco e-Cigarette/Vaping Use: Never Used Second Hand Smoke Exposure: No Use of substances other than those prescribed or required for medical reasons: No Are you DNR?: No Advance Directives: No Advance Directives Information Provided: Yes Poor oral hygiene: No service: No Current occupational status: employed 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 Cognitive needs: No Hearing needs: No Vision needs: No Meds Allergies Allergy/AdvReac Type Severity Reaction Status Date / Time No Known Allergies (No Known Allergy Verified 10/17/24 09:11 Allergies*) Home Medications ?Medication ?Instructions ?Recorded ?Confirmed ?Last Taken ?Type omeprazole 20 mg capsule,delayed 20 mg PO DAILY 10/31/24 11/04/24 History release Exam Airway Mallampati Class: III TM Dist: <=3cm Neck ROM: Full Heart: rrr Lungs: cta Assessment and Plan Assessment Anesthesia Assessment: Anesthesia Plan Discussed Final Anesthetic Review Family History of Problems with Anesthesia: No NPO: Yes ASA Class: III (duncan) Final Preanesthetic Review: No Changes in Pt Med Stat, Meds/Allgs Chart Reviewed, Consent Obtained/Reviewed and Anes Risks/Benef Reviewed Patient Risk: Intermediate Procedure Risk: Low Anesthetic Plan Anesthetic Plan: MAC: and Agree w/ Assess. and Plan Disposition: Standard PACU
[2024-10-31 15:25] VITALS: BMI 32.2
[2024-11-04 13:47] VITALS: BMI 32.3
[2024-11-04 13:53] VITALS: BP 117/65; PULSE 71; RESP 16; TEMP 36.6; O2SAT 96
[2024-11-04] MEDS: Lactated Ringers 1,000 ML 100 ML IVCONT (14:09)
[2024-11-04 14:10] LABS: Glucose, Whole Blood 105 mg/dL (60-115)
[2024-11-04 16:20] VITALS: BP 97/56; PULSE 69; RESP 17; TEMP 36.3; O2SAT 95
--- NOTE | 2024-11-04 16:26 | PM.OP ---
Brief Operative Note Date of Service: 11/04/24 Pre-op diagnosis: GERD Post-op diagnosis: other (Same, Hiatal hernia) Procedure: EGD with biopsies Surgeon: En Villarreal MD Anesthesia: MAC Was an Ironworker Wire Fence Erector used for this Procedure?: No Estimated blood loss (mL): 2.0 Pathology: other (A. Gastric antrum B. EG Junction at 38cm) Condition: stable Disposition: PACU
[2024-11-04 16:35] VITALS: BP 100/60; PULSE 72; RESP 18; TEMP 36.8; O2SAT 95
--- NOTE | 2024-11-05 00:52 | OP_ITS ---
DATE OF SERVICE: 11/04/2024 SURGEON: En Villarreal MD INDICATIONS: The patient presents for evaluation of gastroesophageal reflux, some early satiety, and delayed gastric emptying seen on nuclear medicine gastric emptying study. Full consent has been obtained from him for this, including risks of bleeding and perforation. PREOPERATIVE DIAGNOSIS: POSTOPERATIVE DIAGNOSIS: PROCEDURE PERFORMED: Esophagogastroduodenoscopy with biopsies. ESTIMATED BLOOD LOSS: COMPLICATIONS: ANESTHESIA: Medication used, monitored anesthesia care. ASSISTANTS: SPECIMENS: PREOPERATIVE DIAGNOSES: Early satiety and gastroesophageal reflux. POSTOPERATIVE DIAGNOSES: Early satiety and gastroesophageal reflux, rule out Jimenez's esophagus, small hiatal hernia. DESCRIPTION OF PROCEDURE: The patient was placed in the left lateral decubitus position. The Olympus video gastroscope was passed in the posterior oropharynx and upper esophagus under direct vision. The scope was passed slowly to the distal esophagus. The gastroesophageal junction appeared at 38 cm. This area was slightly irregular consistent with reflux and possibly small, less than 1 cm areas of Jimenez's mucosa. There was no esophagitis nor any lesions. There was no ulceration or stricture. The scope easily entered into the stomach. There was a small hiatal hernia. The scope was advanced to the pylorus and the duodenum was cannulated to the descending portion. The duodenum including the bulb appeared normal without mass or ulceration. The scope was withdrawn back in the stomach. The gastric antrum and body appeared normal. Peristalsis seemed to be subjectively diminished. The scope was retroflexed visualizing the proximal stomach carefully, which appeared normal as well, without any sign of mass or ulceration. There was no sign of any retained food or significant liquid in the stomach, although he had only been on clear liquids yesterday. The scope was straightened. Biopsies were obtained from the gastric antrum. The scope was withdrawn back to the esophagus. Biopsies were obtained at the EG junction at 38 cm. Proximal to that, the esophageal mucosa appeared normal. The scope was withdrawn from the patient. He tolerated the procedure well and was returned to the recovery area in stable condition. IMPRESSION: 1. Small hiatal hernia, gastroesophageal reflux, rule out Jimenez's esophagus. 2. Rule out Helicobacter pylori. 3. Diminished gastric motility. PLAN: The results of the biopsies will be checked. He will continue his omeprazole that I started him on over the summer. He does report that that has helped decrease his acid reflux symptoms. He describes that he has basically been eating comfortably. He has been off metoclopramide without any adverse effect. He was advised to eat carefully and watch the size of his meals. Obviously losing weight would be of benefit to him. We did review that he needs to keep good control of his diabetes so as to avoid any complications, including worsening gastroparesis. If he is doing well, I do not think I would need to see him in followup, but he will be due for a followup colonoscopy in 2028. This has been discussed with his . MD KERRIE Sarmiento/PERRI / [id number] MTDD
== END 2024-11-04 17:00 | disposition home or self-care (01) ==
PROVIDERS: PCP Physician Assistant; Visit Provider Internal Medicine
PROC: 0DJ08ZZ Inspection of Upper Intestinal Tract, Via Natural or Artificial Opening Endoscopic (ICD-10-PCS; CPT 43235; principal; 2024-11-04 14:40)
DX: K21.9 Gastro-esophageal reflux disease without esophagitis (principal); K30 Functional dyspepsia; R68.81 Early satiety; K31.84 Gastroparesis; K44.9 Diaphragmatic hernia without obstruction or gangrene; E11.9 Type 2 diabetes mellitus without complications; E78.5 Hyperlipidemia, unspecified; Z87.19 Personal history of other diseases of the digestive system; I10 Essential (primary) hypertension; G47.33 Obstructive sleep apnea (adult) (pediatric); Z79.1 Long term (current) use of non-steroidal anti-inflammatories (NSAID); Z79.84 Long term (current) use of oral hypoglycemic drugs; Z79.899 Other long term (current) drug therapy
CPT/HCPCS: 43239; 82947; 88305; 88313; 88342; J1100; J2003; J2704; J3010